=== PATIENT | female | born 1990 | race Caucasian/White ===

== ENCOUNTER 2019-03-16 12:29 | Emergency (ER) | payer SELFPAY ==
[2019-03-16 12:32] VITALS: BP 139/94; PULSE 76; RESP 16; O2SAT 100; BMI 38.9
--- NOTE | 2019-03-16 12:37 | W.ED.ABDPA2 ---
HPI - Abdominal Pain General: Chief Complaint: Urogenital-Female Stated Complaint: flank pain Time Seen by Provider: 03/16/19 12:33 Source: patient Mode of arrival: ambulatory Limitations: no limitations History of Present Illness: HPI narrative: Patient presents with bilateral flank pain for the last 2 to 3 days. Patient reports history of chronic kidney disease, hypothyroidism, and mental illness. Patient appears mildly unwell. Patient appears in moderate pain. Location: L flank and R flank Review of Systems General: Reports: 10 or more systems reviewed and unremarkable except in HPI and below : Reports: urinary frequency, urinary urgency and other (flank pain) PFSH ED PFSH: Statuses (acute, chronic, etc) shown below reflect problem list status as previously entered and may not be historically accurate Social History Smoking and tobacco status: former smoker Physical Exam Const: COMMON NORMALS: no apparent distress and oriented x3 GENERAL APPEARANCE: cooperative HENMT: COMMON NORMALS: normocephalic, external ears normal, EAC's normal, TM's normal bilaterally and external nose normal HEAD & SCALP: normal to inspection and normocephalic FACE & SINUS: normal facial exam NOSE: external nose normal GENERAL EAR: hearing not grossly impaired EXTERNAL EAR: Yes external ears normal EXTERNAL AUDITORY CANAL: EAC's normal TYMPANIC MEMBRANE: TM's normal bilaterally MOUTH: oral and palatal mucosa normal THROAT: posterior oropharynx normal Eye: COMMON NORMALS: PERRL and EOMs intact bilaterally PUPIL: Yes PERRL Neck/C-Spine: COMMON NORMALS: full ROM and no lymphadenopathy Lymph: LYMPHATIC: no lymphedema noted Chest: COMMONS NORMALS: inspection of chest normal and palpation of chest normal Resp: COMMON NORMALS: normal respiratory effort and clear to auscultation bilaterally AUSCULTATION: clear to auscultation bilaterally Cardio: COMMON NORMALS: regular rate and regular rhythm RATE: regular rate RHYTHM: regular rhythm GI: COMMON NORMALS: normal to inspection, nondistended, normoactive bowel sounds and non-tender : BLADDER/KIDNEY EXAM: Yes CVA tenderness bilateral (mild) Back/Pelvis: COMMON NORMALS: thoracic and lumbar spine normal to inspection GENERAL BACK: Yes CVA tenderness Extremity: COMMON NORMALS: normal to inspection GENERAL: No edema Neuro: COMMON NORMALS: oriented x3, moves all extremities and no focal motor deficits Psych: COMMON NORMALS: mental status grossly normal and cooperative Skin: COMMON NORMALS: no rashes or lesions noted GENERAL SKIN EXAM: no rashes or lesions noted Course Vital Signs: Vital signs: Vital Signs Temperature 98.0 F 03/16/19 13:24 Pulse Rate 76 03/16/19 15:14 Respiratory Rate 18 03/16/19 15:14 Blood Pressure 127/67 03/16/19 15:14 Pulse Oximetry 98 03/16/19 15:14 MDM - Abdominal Pain MDM Narrative: Medical decision making narrative: Patient comes in today for complaints of bilateral flank pain. On exam patient appears well. Patient appears in mild to moderate pain. Patient has tenderness of bilateral CVA of the back. No vertebral point tenderness. Respirations were even lungs were clear to auscultation. Abdomen was soft and nontender. Skin was warm and dry. Differential diagnosis includes renal calculi, renal colic, pyelonephritis, cystitis, bowel obstruction, constipation, appendicitis, muscle strain, intervertebral disc disease, facet arthropathy. Laboratory values were fairly normal to insignificant. CT of the abdomen and pelvis noted no renal calculi or appendicitis. Reviewed exam with patient recommended treatment for low back pain/lumbar strain. Reviewed exam and recommendations for treatment with exercise and mild muscle relaxant. Patient reported understanding agreed with plan and need for follow-up. Lab Data: Labs: Lab Results 03/16/19 03/16/19 03/16/19 Range/Units 12:49 12:49 12:49 WBC 7.6 (4.0-10.0) 10^3/ uL RBC 3.95 L (4.1-5.3) 10^6/u L Hgb 10.8 L (11.5-15.3) g/dL Hct 34.4 L (37.0-47.0) % MCV 87.1 (81-99) fL MCH 27.3 L (28.0-34.0) pg MCHC 31.4 (30.0-36.0) g/dL RDW 15.8 H (12.1-15.1) % Plt Count 315 (130-400) 10^3/c mm MPV 12.6 H (7.4-10.4) fL Neut % (Auto) 55.1 % Lymph % (Auto) 35.4 % [place] % (Auto) 4.9 % Eos % (Auto) 3.2 % Baso % (Auto) 1.1 % Neut # (Auto) 4.2 (1.8-7.7) 10^3/u L Lymph # (Auto) 2.7 (0.8-4.8) 10^3/u L [place] # (Auto) 0.4 (0.2-0.9) 10^3/u L Eos # (Auto) 0.2 (0.0-0.8) 10^3/u L Baso # (Auto) 0.1 (0.0-0.1) 10^3/u L Nucleated RBC % (a uto) 0 % Nucleated RBCs # 0.0 /100WBC Sodium 136 (136-145) mmol/L Potassium 4.0 (3.5-5.1) mmol/L Chloride 101 (98-107) mmol/L Carbon Dioxide 25 (22-29) mmol/L Anion Gap 14.0 (5-19) BUN 11 (6-20) mg/dL Creatinine 1.2 H (0.5-0.9) mg/dL GFR Calculation 53.5 L (90-130) mL/min Glucose 96 (74-109) mg/dL Calcium 10.1 H (8.6-10.0) mg/Dl Total Bilirubin 0.2 (0.15-1.2) mg/dL AST 18 (0-32) U/L ALT 11 (0-33) U/L Alkaline Phosphata se 73 (35-105) IU/L Total Protein 7.8 (6.6-8.7) g/dL Albumin 5.0 (3.5-5.2) g/dL Globulin 2.8 (1.3-4.6) g/dL HCG, Qual Negative (Negative) Urine Color (Yellow) Urine Appearance (CLEAR) Urine pH (5-7) Ur Specific Gravit y (1.005-1.030) Urine Protein (Negative) Urine Glucose (UA) (Normal) Urine Ketones (Negative) Urine Occult Blood (Negative) Urine Nitrate (Negative) Urine Bilirubin (NEGATIVE) Urine Urobilinogen (Negative) mg/dL Ur Leukocyte Blanca ase (Negative) Urine RBC (0-2) /hpf Urine WBC (0-5) /hpf Ur Squamous Epith Cells (0-5) Urine Bacteria (NONE) 03/16/19 Range/Units 12:55 WBC (4.0-10.0) 10^3/ uL RBC (4.1-5.3) 10^6/u L Hgb (11.5-15.3) g/dL Hct (37.0-47.0) % MCV (81-99) fL MCH (28.0-34.0) pg MCHC (30.0-36.0) g/dL RDW (12.1-15.1) % Plt Count (130-400) 10^3/c mm MPV (7.4-10.4) fL Neut % (Auto) % Lymph % (Auto) % [place] % (Auto) % Eos % (Auto) % Baso % (Auto) % Neut # (Auto) (1.8-7.7) 10^3/u L Lymph # (Auto) (0.8-4.8) 10^3/u L [place] # (Auto) (0.2-0.9) 10^3/u L Eos # (Auto) (0.0-0.8) 10^3/u L Baso # (Auto) (0.0-0.1) 10^3/u L Nucleated RBC % (a uto) % Nucleated RBCs # /100WBC Sodium (136-145) mmol/L Potassium (3.5-5.1) mmol/L Chloride (98-107) mmol/L Carbon Dioxide (22-29) mmol/L Anion Gap (5-19) BUN (6-20) mg/dL Creatinine (0.5-0.9) mg/dL GFR Calculation (90-130) mL/min Glucose (74-109) mg/dL Calcium (8.6-10.0) mg/Dl Total Bilirubin (0.15-1.2) mg/dL AST (0-32) U/L ALT (0-33) U/L Alkaline Phosphata se (35-105) IU/L Total Protein (6.6-8.7) g/dL Albumin (3.5-5.2) g/dL Globulin (1.3-4.6) g/dL HCG, Qual (Negative) Urine Color Straw (Yellow) Urine Appearance Clear (CLEAR) Urine pH 7.0 (5-7) Ur Specific Gravit y 1.005 (1.005-1.030) Urine Protein Neg (Negative) Urine Glucose (UA) Norm (Normal) Urine Ketones Negative (Negative) Urine Occult Blood Neg (Negative) Urine Nitrate Negative (Negative) Urine Bilirubin Neg (NEGATIVE) Urine Urobilinogen Norm (Negative) mg/dL Ur Leukocyte Blanca ase Negative (Negative) Urine RBC None (0-2) /hpf Urine WBC 0-4 H (0-5) /hpf Ur Squamous Epith Cells 0-4 H (0-5) Urine Bacteria Trace (NONE) Discharge Plan Discharge Patient Disposition: Home, Self-Care Clinical Impression: Back pain Qualifiers: Back pain location: low back pain Chronicity: acute Back pain laterality: bilateral Sciatica presence: without sciatica Qualified Code(s): M54.5 - Low back pain Condition: Stable Prescriptions: New tizanidine 4 mg tablet 4 mg PO Q6H PRN (Reason: back pain/spasm) Qty: 14 RF: 0 No Action Synthroid 200 mcg Tablet 200 mcg PO DAILY RF: 0 Ativan 2 mg Tablet 2 mg PO DAILY PRN (Reason: Anxiety) RF: 0 Discharge Orders: Discharge Order (Routine); Ordered 03/16/19 Ordered By: Hugo Hernandez Discharge Diet: Usual diet Discharge Activity: Increase activity as tolerated Activity Restrictions/Additional Instructions: Gentle stretching and range of motion exercise Drink plenty of water Use over the counter Tylenol for pain relief along with prescription medication Follow-up with primary care for persistent symptoms Return to ER for high fever or new concerns Stand Alone Forms: Work/School Release Discharge Date/Time: 03/16/19 15:15 Coding Level of Care Code ED Mitochondrial Disorders Counselor for Ana Wihtt Exam Problem Focused
[2019-03-16 13:03] LABS: Basophils # 0.1 10^3/uL (0.0-0.1); Basophils % 1.1 %; Eosinophils # 0.2 10^3/uL (0.0-0.8); Eosinophils % 3.2 %; Hematocrit 34.4 % (37.0-47.0); Hemoglobin 10.8 g/dL (11.5-15.3); Lymphocytes # 2.7 10^3/uL (0.8-4.8); Lymphocytes % 35.4 %; Mean Corpuscular HGB Conc 31.4 g/dL (30.0-36.0); Mean Corpuscular Hemoglobin 27.3 pg (28.0-34.0); Mean Corpuscular Volume 87.1 fL (81-99); Mean Platelet Volume 12.6 fL (7.4-10.4); Monocytes # 0.4 10^3/uL (0.2-0.9); Monocytes % 4.9 %; Neutrophils # 4.2 10^3/uL (1.8-7.7); Neutrophils % 55.1 %; Nucleated Red Blood Cells % 0 %; Platelet Count 315 10^3/cmm (130-400); Red Blood Count 3.95 10^6/uL (4.1-5.3); Red Cell Distribution Width 15.8 % (12.1-15.1); White Blood Count 7.6 10^3/uL (4.0-10.0)
[2019-03-16 13:14] LABS: HCG, Serum Qual Negative (Negative)
[2019-03-16 13:19] LABS: Alanine Aminotransferase 11 U/L (0-33); Alkaline Phosphatase 73 IU/L (35-105); Aspartate Amino Transferase 18 U/L (0-32); Blood Urea Nitrogen 11 mg/dL (6-20); Calcium 10.1 mg/Dl (8.6-10.0); Carbon Dioxide 25 mmol/L (22-29); Chloride 101 mmol/L (98-107); Globulin 2.8 g/dL (1.3-4.6); Glomerular Filtration Rate 53.5 mL/min (90-130); Glucose 96 mg/dL (74-109); Sodium 136 mmol/L (136-145); Total Bilirubin 0.2 mg/dL (0.15-1.2); Total Protein 7.8 g/dL (6.6-8.7)
[2019-03-16 13:24] VITALS: BP 134/91; PULSE 77; RESP 17; TEMP 36.7; O2SAT 99
[2019-03-16] MEDS: ondansetron 2 mg/ML SDV 2 mL 4 MG IVP (13:24)
[2019-03-16 13:25] VITALS: RESP 18; O2SAT 98
[2019-03-16] MEDS: fentaNYL 50 mcg/mL INJ 2mL 25 MCG IVP (13:25)
--- NOTE | 2019-03-16 13:35 | CT_ITS ---
WS: [id number] CT ABDOMEN PELVIS TECHNIQUE: Noncontrast CT of the abdomen and pelvis with coronal and sagittal reformatted images. CLINICAL INFORMATION: flank pain COMPARISON: 7 DLP: 1731.[address] scans at [facility] use at least one of these dose optimization techniques: automat ed exposure control; mA and/or kV adjustment per patient size (includes targeted exams where dose is matched to clinical indication); or iterative reconstruction. FINDINGS: Noncontrast liver is normal. Normal gallbladder. Normal spleen. Normal gastroesophageal junction. Bala g bases are well aerated. Adrenal glands are normal. Normal noncontrast pancreas. Tiny subcentimeter calyceal tip calculi. No obstructing renal parenchymal or ureteral calculi. Pelvic phleboliths. Normal caliber abdominal aorta. No periaortic lymphadenopathy. Prior ventral hernia repair. Normal ap pendix in the right lower quadrant. No evidence of acute appendicitis. Normal sigmoid colon. Normal Physiologic multifollicular ovaries bilaterally. No free fluid in the pe lvis. CT/CT kidney stone [id number] IMPRESSION: 1. No obstructing renal or ureteral calculi. No hydronephrosis. 2. Tiny bilateral nonobstructing calyceal tip calculi. 3. Normal appendix. 4. Multifollicular ovaries bilaterally. No free fluid in the pelvis. 5. Prior ventral abdominal wall hernia repair.
[2019-03-16 14:35] LABS: Bilirubin Urine Neg (NEGATIVE); Blood Urine Neg (Negative); Glucose Urine UA Norm (Normal); Ketones Urine Negative (Negative); Nitrate Urine Negative (Negative); Protein Urine Neg (Negative); Specific Gravity, Urine 1.005 (1.005-1.030); Urine Appearance Clear (CLEAR); Urine Color Straw (Yellow)
[2019-03-16 14:36] LABS: Leukocyte Esterase Urine Negative (Negative); Urobilinogen Urine Norm (Negative)
[2019-03-16 15:02] LABS: Add Urine Culture? No; Bacteria Urine TRACE; Squamous Epithelial Cell Urine 0-4 (0-5); WBC Urine 0-4 /hpf (0-5)
[2019-03-16 15:14] VITALS: BP 127/67; PULSE 76; RESP 18; O2SAT 98
--- NOTE | 2019-03-16 15:14 | PC.NURSE ---
IV has been removed 3:13
== END 2019-03-16 15:15 | disposition home or self-care (01) ==
PROVIDERS: Emergency Provider Nurse Practitioner Family
DX: M54.5 Low back pain (principal); Z87.891 Personal history of nicotine dependence
CPT/HCPCS: 36415; 74176; 80053; 81001; 84703; 85025; 96374; 96375; 99282; A9270; J2405; J3010

== ENCOUNTER → 2019-03-27 15:21 | Outpatient (BNVA) | payer SELFPAY | PROVIDERS: Visit Provider Nurse Practitioner Family | DX: J10.1 Influenza due to other identified influenza virus with other respiratory manifestations (principal); R09.89 Other specified symptoms and signs involving the circulatory and respiratory systems | CPT/HCPCS: 87081; 87804; 87880 ==

== ENCOUNTER 2019-05-01 22:55 | Emergency (ER) | payer SELFPAY ==
[2019-05-01 23:01] VITALS: BMI 39.8
--- NOTE | 2019-05-01 23:03 | XRR_ITS ---
PROCEDURE INFORMATION: Exam: XR Right Hand Exam date and time: 05/01/2019 11:29 PM Age: 28 years old Clinical indication: Pain and injury or trauma; Injury history: Punched a wall; Initial encounter; Blunt trauma (contusions or hematomas; Hand; Right; Injury date: 3 days ago TECHNIQUE: Imaging protocol: XR Right hand. Views: 3 or more views. COMPARISON: No relevant prior studies available. FINDINGS: Bones/joints: No fracture. No dislocation. Soft tissues: There is superficial soft tissue swelling dorsal to the metacarpal heads. This could be due to a contusion given history. XR/XR hand RT min 3V* [id number] IMPRESSION: Soft tissue injury without osseous injury.
[2019-05-01 23:04] VITALS: BP 134/101; PULSE 80; RESP 16; TEMP 36.7; O2SAT 96
[2019-05-01 23:12] VITALS: PULSE 18
--- NOTE | 2019-05-01 23:16 | ED_ITS ---
Entered by Demetria Brasher, acting as scribe for Richa Gamez Collette May 01, 2019 22:55 HPI - Extremity Problem General: Chief complaint: Extremity Injury, Upper Stated complaint: finger injury Time Seen by Provider: 05/01/19 23:10 Source: patient Mode of arrival: ambulatory Limitations: no limitations History of Present Illness: HPI Narrative: 28 yo f came to the er for ext injury. Onset was last night. Pt states that she punched a wall last night. MD Complaint: extremity pain Onset (ago): day(s) (last night) Review of Systems General: Reports: 10 or more systems reviewed and unremarkable except in HPI and below PFSH ED PFSH: Family History (Updated 03/27/19 @ 15:01 by Rosalva Pena LPN, RT) Father , 2003 JEFFREY (obstructive sleep apnea) Alcohol abuse drug abuse Mother Lung disease COPD Family/Other Stroke Cancer Hyperlipidemia Social History (Updated 03/27/19 @ 15:00 by Rosalva Pena LPN, RT) Smoking and tobacco status: never smoked Quit status (tobacco): has quit using tobacco Year quit tobacco: 2008 Former quit date comment: smoked 1/2 PPD since age 13 Second hand smoke exposure: Yes Alcohol intake: current Alcohol intake frequency: few times a month Adopted: No Lives independently: Yes Household members: significant other and children Housing: House Marital status: Life Partner Number of children: 2 service: No Current occupational status: employed Current occupation: [employer] Current occupational exposures/hazards: No History of recent travel: No Current gender identity: Female Female Reproductive History: Date of last menstrual period: 04/05/19 Physical Exam Extremity: NARRATIVE EXTREMITY EXAM: Right hand with bruise over fifth metacarpal phalangeal joint. Full range of motion. Small abrasion noted. No laceration present. Fifth phalanx with normal neuro sensation and capillary refill distal. Course Vital Signs: Vital signs: Vital Signs Temperature 98.4 F 05/01/19 23:54 Pulse Rate 96 05/01/19 23:54 Respiratory Rate 16 05/01/19 23:54 Blood Pressure 132/98 05/01/19 23:54 Pulse Oximetry 96 05/01/19 23:54 MDM - Extremity (Nontraumatic) MDM Narrative: Medical decision making narrative: Patient comes in after punching a wall and bruising her right hand at the fifth metacarpal phalangeal joint. I see no evidence of fracture dislocation on x-ray. I will go and discharge the patient home to follow-up with orthopedics as needed. Imaging Data^: Other Imaging: My impression: Right hand -no acute fractures or dislocations. Discharge Plan Discharge Patient Disposition: Home, Self-Care Clinical Impression: Contusion Qualifiers: Encounter type: initial encounter Contusion area: hand Laterality: right Qualified Code(s): S60.221A - Contusion of right hand, initial encounter Condition: Stable Prescriptions: No Action prednisone 20 mg tablet 40 mg PO QDAY Qty: 10 RF: 0 promethazine-DM 6.25-15 mg/5 mL syrup 5 ml PO ONCE PRN (Reason: cough) Qty: 150 RF: 0 oseltamivir [Tamiflu] 75 mg capsule 75 mg PO BID Qty: 10 RF: 0 Synthroid 200 mcg Tablet 200 mcg PO DAILY RF: 0 Ativan 2 mg Tablet 2 mg PO DAILY PRN (Reason: Anxiety) RF: 0 tizanidine 4 mg tablet 4 mg PO Q6H PRN (Reason: back pain/spasm) Qty: 14 RF: 0 Discharge Orders: Discharge Order (Routine); Ordered 05/01/19 Ordered By: Richa Gamez Discharge Diet: Advance as tolerated and Usual diet Discharge Activity: Increase activity as tolerated Patient Instructions: Contusion in Adults (ED) Activity Restrictions/Additional Instructions: Please return to the ER immediately for any of the signs or symptoms listed on your discharge instruction sheets, worsening/changing of your symptoms, you are not getting better as quickly as expected, or for ANY other cause or concerns. Discharge Date/Time: 05/01/19 23:56 Coding Level of Care Code ED Oven Laborer for Chg Fwd The documentation recorded by the Anshu jay Stephanie Lyn, accurately reflects the service I personally performed and the decisions made by , Richa Gamez May 01, 2019 22:55
[2019-05-01 23:54] VITALS: BP 132/98; PULSE 96; RESP 16; TEMP 36.9; O2SAT 96
== END 2019-05-01 23:56 | disposition home or self-care (01) ==
PROVIDERS: Emergency Provider Emergency Medicine
DX: S60.221A Contusion of right hand, initial encounter (principal); Z87.891 Personal history of nicotine dependence
CPT/HCPCS: 73130; 99281; 99282

== ENCOUNTER → 2019-08-08 14:04 | Outpatient (BNVA) | payer SELFPAY | PROVIDERS: Visit Provider Nurse Practitioner Family | DX: E03.9 Hypothyroidism, unspecified (principal) | CPT/HCPCS: 80053; 84439; 84443; 84481; 85025 ==

== ENCOUNTER → 2020-01-01 11:13 | Outpatient (BNVA) | payer SELFPAY | PROVIDERS: Visit Provider Nurse Practitioner Family | DX: E03.1 Congenital hypothyroidism without goiter (principal) | CPT/HCPCS: 80053; 84439; 84443; 84481; 85025 ==

== ENCOUNTER → 2020-03-12 10:36 | Outpatient (BNVA) | payer MEDICAID, SELFPAY | PROVIDERS: Visit Provider Nurse Practitioner Family | DX: E03.1 Congenital hypothyroidism without goiter (principal) | CPT/HCPCS: 80048; 84439; 84443; 84481 ==

== ENCOUNTER → 2020-04-29 17:20 | Outpatient (BNVA) | payer MEDICAID, SELFPAY | PROVIDERS: Visit Provider Nurse Practitioner Family | DX: E03.1 Congenital hypothyroidism without goiter (principal); K64.9 Unspecified hemorrhoids; H66.001 Acute suppurative otitis media without spontaneous rupture of ear drum, right ear | CPT/HCPCS: 80048; 84439; 84443; 84481; 85025 ==

== ENCOUNTER → 2020-06-06 00:01 | Outpatient (BNVA) | payer MEDICAID, SELFPAY | PROVIDERS: Visit Provider Surgery | DX: Z20.822 Contact with and (suspected) exposure to COVID-19 (principal) | CPT/HCPCS: 87635 ==

== ENCOUNTER 2020-06-08 21:00 | Emergency (ER) | payer MEDICAID, SELFPAY ==
[2020-06-08 21:05] VITALS: BP 126/91; PULSE 98; RESP 18; TEMP 36.5; O2SAT 98; BMI 39.4
[2020-06-08] MEDS: sodium chloride 0.9% 1,000 ML 999 ML IV (22:07)
--- NOTE | 2020-06-08 22:08 | CTR_ITS ---
PROCEDURE INFORMATION: Exam: CT Abdomen And Pelvis With Contrast Exam date and time: 06/08/2020 10:38 PM Age: 29 years old Clinical indication: Abdominal pain; Localized; Left lower quadrant (llq); Prior surgery; Surgery date: 6+ months; Surgery type: Hernia, c-sect; Patient HX: C/O llq abd pain w n/v; Additional info: Llq pain TECHNIQUE: Imaging protocol: Computed tomography of the abdomen and pelvis with contrast. Radiation optimization: All CT scans at this facility use at least one of these dose optimization techniques: automated exposure control; mA and/or kV adjustment per patient size (includes targeted exams where dose is matched to clinical indication); or iterative reconstruction. Contrast material: OMNI 300; Contrast volume: 95 ml; Contrast route: INTRAVENOUS (IV); COMPARISON: CT abdomen pelvis w con* [id number] 09/05/2016 4:37 AM RADIATION DOSE METRICS: Total DLP (mGy-cm): 1786.72 FINDINGS: Lungs: The lung bases are clear. Mediastinal space: There may be some mucosal/wall thickening involving the lower esophagus. This is nonspecific, but could represent evidence for esophagitis. Please correlate clinically. Liver: There is a very small 5 mm low attenuation area in the lateral right lobe of the liver. The appearance is nonspecific, but statistically this most likely represents a small cyst or cavernous hemangioma. Gallbladder and bile ducts: No definite gallbladder abnormality by CT. No biliary tree dilation. Pancreas: Unremarkable. Spleen: Unremarkable. Adrenal glands: Unremarkable. Kidneys and ureters: There are few small intrarenal calculi bilaterally. No hydronephrosis of either kidney. No visible ureteral calculus. No perinephric fluid. Probable 4-5 mm cyst in each kidney kidney, too small to accurately characterize by CT. The kidneys otherwise enhance homogeneously. Stomach and bowel: There are no CT findings to strongly suggest diverticulitis or colitis. Appendix: The appendix is visualized and appears normal. Intraperitoneal space: No free air, generalized ascites, or bowel distention. Vasculature: No evidence for abdominal aortic aneurysm. Lymph nodes: No retroperitoneal adenopathy. Urinary bladder: Possibly some mild diffuse urinary bladder wall thickening. While nonspecific, this could indicate evidence for cystitis. Please correlate clinically. Reproductive: Very small amount of cul-de-sac fluid. No definite abnormal ovarian/adnexal cyst or mass by CT. Bones/joints: No significant acute finding. Soft tissues: No significant acute finding. CT/CT abdomen pelvis w con* [id number] IMPRESSION: 1. No CT findings to strongly suggest diverticulitis or colitis. 2. No free air or bowel distention. No evidence for bowel obstruction. 3. Bilateral intrarenal calculi. No hydronephrosis of either kidney. No visible ureteral calculus. 4. Possible mild urinary bladder wall thickening, see above. 5. Normal appendix. 6. Very small amount of cul-de-sac fluid. No definite abnormal ovarian/adnexal cyst or mass by CT. 7. Possibly some thickening of the lower esophagus, see above discussion. 8. Other findings discussed above. Radiation Dose CTDIVOL = (mGy): DLP = 1786.72 (mGy-cm)
[2020-06-08 22:14] LABS: Basophils # 0.1 10^3/uL (0.0-0.1); Basophils % 0.4 %; Eosinophils # 0.2 10^3/uL (0.0-0.8); Eosinophils % 1.9 %; Hematocrit 37.5 % (37.0-47.0); Hemoglobin 11.7 g/dL (11.5-15.3); Lymphocytes # 0.5 10^3/uL (0.8-4.8); Lymphocytes % 4.5 %; Mean Corpuscular HGB Conc 31.2 g/dL (30.0-36.0); Mean Corpuscular Hemoglobin 26.7 pg (28.0-34.0); Mean Corpuscular Volume 85.6 fL (81-99); Mean Platelet Volume 12.3 fL (7.4-10.4); Monocytes # 0.5 10^3/uL (0.2-0.9); Monocytes % 4.3 %; Neutrophils # 10.16 10^3/uL (1.8-7.7); Neutrophils % 88.6 %; Nucleated Red Blood Cells % 0 %; Platelet Count 321 10^3/cmm (130-400); Red Blood Count 4.38 10^6/uL (4.1-5.3); Red Cell Distribution Width 14.6 % (12.1-15.1); White Blood Count 11.5 10^3/uL (4.0-10.0)
--- NOTE | 2020-06-08 22:15 | W.ED.ABDPA2 ---
HPI - Abdominal Pain General: Chief Complaint: Abdominal Pain Stated Complaint: ABD PAIN Time Seen by Provider: 06/08/20 21:11 History of Present Illness: HPI narrative: 29-year-old female who tells me she has had 3 different surgeries for ventral hernia presents with abdominal pain and vomiting. She says it started around noon today. She is vomited 6 times or so. Pain is gotten worse, localizes a bit more to the left lower quadrant but also in the mid abdomen. No radiation. No fever, no diarrhea, no blood in the stool. MD elicited complaint: abdominal pain Pertinent past history: other Onset (ago): hour(s) Pain Consistency: constant Location: Periumbilical and LLQ Severity: moderate Quality: stabbing and aching Radiation: none Migration to: no migration Exacerbating factors: vomiting and movement Relieving factors: nothing Associated Symptoms: Reports chills and vomiting; Denies diarrhea, dyspepsia, fever(s), hematuria, hematemesis and loose stools Related Data: Date of Last Menstrual Period: 12/05/19 Review of Systems Const: Reports: chills; Denies: fever(s) ENMT: Denies: odynophagia or sinus pain Card: Denies: chest pain, palpitations or irregular heart rhythm Resp: Denies: dyspnea, productive cough, non-productive cough or wheezing GI: Reports: vomiting; Denies: hematemesis or diarrhea : Denies: hematuria Musc: Reports: back pain; Denies: neck pain Skin/Breast: Denies: rash or erythema Neuro: Denies: headache(s), dizziness or vertigo Psych: Denies: anxiety PFSH ED PFSH: Medical History (Updated 06/09/20 @ 00:54 by Tommy Lovelace DO) Anemia, unspecified Chronic kidney disease, stage 3 (moderate) Congenital hypothyroidism Essential (primary) hypertension Generalized anxiety disorder Major depressive disorder, recurrent episode, moderate with anxious distress Panic disorder without agoraphobia Polycystic ovarian syndrome Vitamin D deficiency Surgical History Hx of section (~2012) Hx of hernia repair x 3 Hx of tubal ligation (~2012) Family History Father , 2003 JEFFREY (obstructive sleep apnea) Alcohol abuse drug abuse Mother Lung disease COPD Family/Other Stroke Cancer Hyperlipidemia Social History Smoking and tobacco status: never smoked Quit status (tobacco): has quit using tobacco Year quit tobacco: 2008 Former quit date comment: smoked 1/2 PPD since age 13 Second hand smoke exposure: Yes Alcohol intake: current Alcohol intake frequency: few times a month Adopted: No Lives independently: Yes Household members: significant other and children Housing: House Marital status: Life Partner Number of children: 2 service: No Current occupational status: employed Current occupation: [employer] Current occupational exposures/hazards: No History of recent travel: No Current gender identity: Female Female Reproductive History: Date of last menstrual period: 12/05/19 Physical Exam Const: GENERAL APPEARANCE: well developed ORIENTATION/CONSCIOUSNESS: Yes oriented to person, Yes oriented to place and Yes oriented to time HENMT: COMMON NORMALS: normocephalic, external ears normal and Normal external nose present HEAD & SCALP: normocephalic FACE & SINUS: normal facial exam NOSE: Normal external nose present and No nasal discharge present EXTERNAL EAR: Yes external ears normal Eye: COMMON NORMALS: Equal, round and reactive pupils present, EOMs intact bilaterally and conjunctivae normal EYELID: eyelids normal CONJUNCTIVA: Yes conjunctivae normal PUPIL: Yes Equal, round and reactive pupils present Neck/C-Spine: GENERAL: No tracheal deviation Chest: COMMONS NORMALS: normal inspection of the chest CHEST: No tenderness Resp: COMMON NORMALS: clear to auscultation bilaterally EFFORT & INSPECTION: No tachypneic, No respiratory distress, No retractions, No uses accessory muscles and No tracheal deviation AUSCULTATION: clear to auscultation bilaterally, no rhonchi, no wheezes and lung sounds not diminished Cardio: COMMON NORMALS: regular rate and regular rhythm RATE: regular rate RHYTHM: regular rhythm HEART SOUNDS: no murmurs PERIPHERAL PULSES: radial pulses present GI: INSPECTION: No abdominal distension AUSCULTATION: No Hyperactive bowel sounds present and No Hypoactive bowel sounds present PALPATION: Yes Tenderness to palpation present (GI) Details: LLQ, Yes Guarding due to palpation present (GI) and No Rigid due to palpation PERCUSSION: no dullness to percussion and no tympanic to percussion Neuro: SENSORIUM/ORIENTATION: Yes oriented to person, Yes oriented to place and Yes oriented to time Psych: COMMON NORMALS: mental status grossly normal Skin: COMMON NORMALS: no rashes or lesions noted GENERAL SKIN EXAM: no rashes or lesions noted Course Vital Signs: Vital signs: Vital Signs Temperature 97.7 F 06/08/20 21:05 Pulse Rate 98 06/08/20 21:05 Respiratory Rate 18 06/08/20 21:05 Blood Pressure 126/91 06/08/20 21:05 Pulse Oximetry 98 06/08/20 21:05 MDM - Abdominal Pain MDM Narrative: Medical decision making narrative: White blood cell count is minimally elevated. Other laboratory is normal. She has urinated twice in the emergency room, and failed to obtain a sample both times despite counseling that we need her urinalysis for complete work-up. Her CT shows no evidence of problem with her hernia mesh. There is some mild lower esophagitis, and it is otherwise negative. She will be sent home on proton pump inhibitor for esophagitis. Lab Data: Labs: Lab Results 06/08/20 06/08/20 06/08/20 Range/Units 21:59 21:59 21:59 WBC 11.5 H (4.0-10.0) 10^3/ uL RBC 4.38 (4.1-5.3) 10^6/u L Hgb 11.7 (11.5-15.3) g/dL Hct 37.5 (37.0-47.0) % MCV 85.6 (81-99) fL MCH 26.7 L (28.0-34.0) pg MCHC 31.2 (30.0-36.0) g/dL RDW 14.6 (12.1-15.1) % Plt Count 321 (130-400) 10^3/c mm MPV 12.3 H (7.4-10.4) fL Neut % (Auto) 88.6 % Lymph % (Auto) 4.5 % [place] % (Auto) 4.3 % Eos % (Auto) 1.9 % Baso % (Auto) 0.4 % Neut # (Auto) 10.16 H (1.8-7.7) 10^3/u L Lymph # (Auto) 0.5 L (0.8-4.8) 10^3/u L [place] # (Auto) 0.5 (0.2-0.9) 10^3/u L Eos # (Auto) 0.2 (0.0-0.8) 10^3/u L Baso # (Auto) 0.1 (0.0-0.1) 10^3/u L Nucleated RBC % (a uto) 0 % Nucleated RBCs # 0.0 /100WBC Sodium 141 (136-145) mmol/L Potassium 4.2 (3.5-5.1) mmol/L Chloride 108 H (98-107) mmol/L Carbon Dioxide 23 (22-29) mmol/L Anion Gap 14.2 (5-19) BUN 13 (6-20) mg/dL Creatinine 0.8 (0.5-0.9) mg/dL GFR Calculation 84.8 L (90-130) mL/min Glucose 103 (65-115) mg/dL Calculated Osmolal ity 292 (285-295) mOsm/k g Calcium 9.0 (8.5-10.5) mg/dL Total Bilirubin 0.3 (0.15-1.2) mg/dL AST 13 (0-32) U/L ALT 7 (0-33) U/L Alkaline Phosphata se 79 (35-105) IU/L C-Reactive Protein 9.1 H (0.0-4.9) mg/L Total Protein 7.3 (6.6-8.7) g/dL Albumin 4.5 (3.5-5.2) g/dL Globulin 2.8 (1.3-4.6) g/dL Lipase 17 (13-60) U/L HCG, Qual Negative (Negative) Discharge Plan Discharge Patient Disposition: Home Clinical Impression: Esophagitis Condition: Stable Prescriptions: New Prevacid 30 mg capsule,delayed release(DR/EC) 30 mg PO DAILY Qty: 30 RF: 0 Zofran 4 mg tablet 4 mg PO Q6H PRN (Reason: nausea and vomiting) Qty: 10 RF: 0 No Action hydrocortisone acetate [Anusol-HC] 25 mg suppository 25 mg CO BID Qty: 12 RF: 0 polyethylene glycol 3350 [Miralax] 17 gram/dose powder 17 g PO DAILY PRN (Reason: constipation) Qty: 238 RF: 0 quetiapine [Seroquel] 100 mg tablet 100 mg PO .bedtime Qty: 30 RF: 3 buspirone 10 mg tablet 10 mg PO DIRECTED Qty: 60 RF: 3 levothyroxine [Synthroid] 100 mcg tablet 100 mcg PO DAILY Qty: 30 RF: 1 Discharge Orders: Discharge ED (Routine); Ordered 06/09/20 Ordered By: Tommy Lovelace Referrals: Rosalva Mckeon FNP [Primary Care Provider] - 4-7 days Patient Instructions: Gastroesophageal Reflux Disease (ED) Activity Restrictions/Additional Instructions: Return for fever greater than 100, vomiting liquids or medications, other concerning symptoms. Coding Level of Care Code ED Telephone Service Representative for Chg Fwd Exam Comprehensive
[2020-06-08 22:24] LABS: HCG, Serum Qual Negative (Negative)
[2020-06-08 22:32] LABS: Alanine Aminotransferase 7 U/L (0-33); Albumin Level 4.5 g/dL (3.5-5.2); Alkaline Phosphatase 79 IU/L (35-105); Anion Gap 14.2 (5-19); Aspartate Amino Transferase 13 U/L (0-32); Blood Urea Nitrogen 13 mg/dL (6-20); C Reactive Protein 9.1 mg/L (0.0-4.9); Carbon Dioxide 23 mmol/L (22-29); Chloride 108 mmol/L (98-107); Globulin 2.8 g/dL (1.3-4.6); Glomerular Filtration Rate 84.8 mL/min (90-130); Glucose 103 mg/dL (65-115); Lipase 17 U/L (13-60); Osmolality Calculated 292 mOsm/kg (285-295); Potassium 4.2 mmol/L (3.5-5.1); Sodium 141 mmol/L (136-145); Total Bilirubin 0.3 mg/dL (0.15-1.2); Total Protein 7.3 g/dL (6.6-8.7)
[2020-06-08] MEDS: ketorolac 30 mg/mL INJ IVP (22:37)
[2020-06-08] MEDS: ondansetron 2 mg/ML SDV 2 mL 4 MG IVP (22:38)
[2020-06-08] MEDS: iohexol 300 mg/mL 100 mL Btl IV (22:47)
[2020-06-09] MEDS: lidocaine 2% viscous 15 ML, aluminum-mag hydrox-simethicon 30 ML, sucralfate oral liq 1 GM PO (00:36)
== END 2020-06-09 01:12 | disposition home or self-care (01) ==
PROVIDERS: Emergency Provider Emergency Medicine; PCP Nurse Practitioner Family
DX: K20.90 Esophagitis, unspecified without bleeding (principal); I12.9 Hypertensive chronic kidney disease with stage 1 through stage 4 chronic kidney disease, or unspecified chronic kidney disease; N18.30 Chronic kidney disease, stage 3 unspecified; Z87.891 Personal history of nicotine dependence
CPT/HCPCS: 74177; 80053; 83690; 84703; 85025; 86140; 96361; 96374; 96375; 99284; J1885; J2405; J7030; Q9967

== ENCOUNTER 2020-06-10 05:45 | Day surgery (SDC) | payer MEDICAID, SELFPAY ==
[2020-06-09 09:23] VITALS: BMI 38.9
[2020-06-10] VITALS (8 sets, daily range): BP systolic 114–135; BP diastolic 80–95; PULSE 68–87; RESP 13–20; TEMP 36.2–36.9; O2SAT 95–100
[2020-06-10 06:09] LABS: OR HCG Qualitative Urine Negative (Negative)
--- NOTE | 2020-06-10 06:23 | P.HP_ITS ---
Same Day Surgery H&P Indication for Procedure/HPI DATE OF PROCEDURE: June 10, 2020 CHIEF COMPLAINT/INDICATIONFOR SURGICAL PROCEDURE: BLEEDING PER RECTUM PREOP DIAGNOSIS: Bleeding per rectum PLANNED PROCEDRUE: Operation Date: 06/10/20 07:00 Proposed Procedures p Exam Under Anesthesia 94520 [id number] K64.9(Not Applicable) - Santana Castellanos MD s OPEN LATERAL SPHINCTERECTOMY(Not Applicable) - MD itzel Moss Hemorroidectomy(Not Applicable) - Santana Castellanos MD This is a pleasant 29 years old female patient morbidly obese with a current BMI of 44 and weighs 239 pounds, referred to my practice with history of symptomatic hemorrhoids per her description over the past few months she has been having spotting and intermittent blood with stools associated with pain and constipation. Patient denies previous anal or perianal surgeries. Interim history 06/10/2020 Patient comes today for examination under anesthesia and possible hemorrhoidectomy with possible open lateral internal sphincterotomy. Recently went to the emergency department; 1.No CT findings to strongly suggest diverticulitis or colitis. 2. No free air or bowel distention. No evidence for bowel obstruction. 3. Bilateral intrarenal calculi. No hydronephrosis of either kidney. No visible ureteral calculus. 4. Possible mild urinary bladder wall thickening, see above. 5. Normal appendix. 6. Very small amount of cul-de-sac fluid. No definite abnormal ovarian/adnexal cyst or mass by CT. 7. Possibly some thickening of the lower esophagus, see above discussion. 8. Other findings discussed above. ROS All systems have been reviewed negative except as per the above or per problem list Medications/Allergies* Allergies/Adverse Reactions Allergy/AdvReac Type Severity Reaction Status Date / Time acetaminophen Allergy ALGY-Hives Verified 06/10/20 06:26 [From Darvocet-N 100] ibuprofen Allergy Unknown Verified 06/10/20 06:26 propoxyphene Allergy ALGY-Hives Verified 06/10/20 06:26 [From Darvocet-N 100] Pertinent History/Comorbid Conditions* Medical History (Updated 06/09/20 @ 00:54 by Tommy Lovelace DO) Anemia, unspecified Chronic kidney disease, stage 3 (moderate) Congenital hypothyroidism Essential (primary) hypertension Generalized anxiety disorder Major depressive disorder, recurrent episode, moderate with anxious distress Panic disorder without agoraphobia Polycystic ovarian syndrome Vitamin D deficiency Surgical History (Updated 01/01/20 @ 13:56 by OLMAN Buckner) Hx of section (~2012) Hx of hernia repair x 3 Hx of tubal ligation (~2012) Family History (Updated 03/27/19 @ 15:01 by Rosalva Pena LPN, RT) Father, 2003 JEFFREY (obstructive sleep apnea) Father Alcohol abuse Father drug abuse Hyperlipidemia Family/Other Lung disease Mother COPD Cancer Family/Other Stroke Family/Other Social History Smoking and tobacco status: never smoked Quit status (tobacco): has quit using tobacco Year quit tobacco: 2008 Former quit date comment: smoked 1/2 PPD since age 13 Second hand smoke exposure: Yes Alcohol intake: current Alcohol intake frequency: few times a month Adopted: No Lives independently: Yes Household members: significant other and children Housing: House Marital status: Life Partner Number of children: 2 service: No Current occupational status: employed Current occupation: [employer] Current occupational exposures/hazards: No History of recent travel: No Current gender identity: Female Pertinent Exam Findings alert, oriented x 3, clear to auscultation bilaterally, regular rate & rhythm and procedure specific exam findings (Abdominal examination nontender nondistended soft obese) Recommendations Surgery/Procedure today (Examination under anesthesia with possible hemorrhoidectomy and possible open lateral sphincterotomy) Coding Level of Care Code Acute Supervisor [employer] for Ana Whitt
--- NOTE | 2020-06-10 06:31 | ANES.PREANE2 ---
Pre-Anesthetic Assessment Pre-Anesthetic Assessment: Height/Weight: Height 1.6 m Weight 99.79 kg Temp Pulse Resp BP Pulse Ox 97.2 F L 84 18 118/83 96 06/10/20 06:00 06/10/20 06:00 06/10/20 06:00 06/10/20 06:00 06/10/20 06:00 Preop Diagnosis: Bleeding per rectum Proposed Procedure: Operation Date: 06/10/20 07:00 Proposed Procedures p Exam Under Anesthesia 89499 [id number] K64.9(Not Applicable) - Santana Castellanos MD s OPEN LATERAL SPHINCTERECTOMY(Not Applicable) - Santana Castellanos MD s Hemorroidectomy(Not Applicable) - Santana Castellanos MD Familial anesthetic complications: None Was Beta Dawn taken within 24 hours: N/A Was Clonidine taken within 24 hours: N/A Last intake: Intake Last Liquid Date 06/09/20 Last Liquid Time 21:00 Last Solid Date 06/09/20 Last Solid Time 21:00 Social: Social History: Tobacco and No alcohol Comment: Marijuana - last week Exam: Pre-Anes Outpt Exam: alert, oriented x 3, clear to auscultation bilaterally and regular rate & rhythm Airway: Cervical ROM: WNL MP: 3 Dentition: Other (missing) Additional comments: Patient has nose ring, educated on risks associated w/ bovie use and jurado, states she's unable to remove it and would like top proceed Pulmonary: Pulmonary: Sleep apnea CV/HEM: Comments: hx preeclampsia : : Chronic renal Insufficiency (d/t HTN from preeclampsia) Metabolic: Metabolic: Morbid obesity and Thyroid Anesthetic Plan: ASA status: 2 Anesthesia: General Risk of > 500 ml blood loss (7ml/kg in children): No PFSH Anesthesia PFSH: Medical History (Updated 06/09/20 @ 00:54 by Tommy Lovelace DO) Anemia, unspecified Chronic kidney disease, stage 3 (moderate) Congenital hypothyroidism Essential (primary) hypertension Generalized anxiety disorder Major depressive disorder, recurrent episode, moderate with anxious distress Panic disorder without agoraphobia Polycystic ovarian syndrome Vitamin D deficiency Surgical History Hx of section (~2012) Hx of hernia repair x 3 Hx of tubal ligation (~2012) Family History Father , 2003 JEFFREY (obstructive sleep apnea) Alcohol abuse drug abuse Mother Lung disease COPD Family/Other Stroke Cancer Hyperlipidemia Social History Smoking and tobacco status: never smoked Quit status (tobacco): has quit using tobacco Year quit tobacco: 2008 Former quit date comment: smoked 1/2 PPD since age 13 Second hand smoke exposure: Yes Alcohol intake: current Alcohol intake frequency: few times a month Adopted: No Lives independently: Yes Household members: significant other and children Housing: House Marital status: Life Partner Number of children: 2 service: No Current occupational status: employed Current occupation: [employer] Current occupational exposures/hazards: No History of recent travel: No Current gender identity: Female Female Reproductive History: Date of last menstrual period: 11/09/19 Data Anesthesia Other Labs: Laboratory Results - last 48 hr 06/10/20 06:06 Urine HCG, Qual Negative Cardiac Studies: No Data to Display
[2020-06-10] MEDS: famotidine 20 mg/2 mL INJ IVP (06:34)
[2020-06-10] MEDS: sodium chloride 0.9% 1,000 ML 30 ML IV (06:43)
[2020-06-10] MEDS: piperacillin-tazobactam 3.375 GM in sodium chloride 0.9% (plus) 50 ML IV (06:57)
--- NOTE | 2020-06-10 07:47 | PM.OP ---
Operative Report Date of procedure: June 10, 2020 Pre-op Diagnosis: Bleeding per rectum Post-op diagnosis: same Post-op Diagnosis: Right lower lateral hemorrhoids Post-op Findings: Posterior anal skin tag Procedure Done: Examination under anesthesia and right lower lateral hemorrhoidectomy Implants: Surgicel with Xeroform for anal packing Specimens removed/disposition: Right lower lateral hemorrhoid Surgeon: Santana Castellanos School Bus Monitor: director of instructional technology David Circulating nurse Tina Anesthesia: General (GETA legal transcriber Saima) Estimated blood loss (mL): 5 Condition: stable Disposition: same day Brief History: This is a pleasant 29 years old female patient presented with history of intermittent bleeding per rectum With concern of hemorrhoidal disease. Full H&P and informed consent per chart Procedure: Patient was identified in the holding area and was taken back to the operating room, which was first placed in supine position got intubated by anesthesia, prophylactic IV antibiotics were given per protocol,Time-out was done verifying the patient's name/date of /planned procedure and destination after the procedure, all were in agreement. Patient was placed in Lithotomy position were all pressure points were padded, patient was secured to the bed. Prep and drape was done thereafter under the usual sterile technique,started by pudendal nerve block bilaterally , injecting 15 ML EXPAREL each side , guided by the examining finger towards the ischial spine bilaterally, followed by that digital rectal examination showed no masses were appreciated or bleeding presence of posterior anal skin tag. A well-lubricated endoscope was then introduced I was able to identify A right lower lateral hemorrhoid, I placed a wet 4 x 4 inside the anal canal to prevent stools from encroaching on the wound site, that was taken out at the end of the procedure. I did apply a hemostat at the origin of the hemorrhoidal tissue, onto the right lower lateral hemorrhoid,using hand-held harmonic scalpel device for dissection safeguarding the external anal sphincter after that I was able to deliver the specimen to the circulating nurse hemostasis was achieved , and running 2-0 chromic catgut suture was applied to approximate the edges of the hemorrhoidectomy site, that was done after thorough irrigation of the wound with warm normal saline.Additional [id number] 3-0 chromic catgut was done for hemostasis. At that point after removal of the 4 x 4'sx1, I applied a piece of Xeroform impregnated IN lidocaine 2% jelly at the site of the wound and a piece of Surgicel both were rolled up as a Cigar like and and 2-0 silk stitch was applied at the end that faces the exit of the anus as it will be easier to pull out later on, followed by 4 x 4 application and ABD,a surgical pants was then placed to hold the dressing in place. Count was completed at the end of the procedure, patient was then extubated and was taken to the recovery room in stable condition I was present for the whole entire procedure.
[2020-06-10] MEDS: oxyCODONE 5 mg IR Tab/Cap PO (08:59)
--- NOTE | 2020-06-10 09:22 | SUR.PHASEII ---
patient discharge instruction given to patient verbally and written given. Provided sitz bath and instructed how to use. Patient verbalized understanding and had no question.
--- NOTE | 2020-06-10 12:23 | ANE.PACU2 ---
Inpatient post-anesthesia follow up: Airway intact: Yes Vital signs: Temperature 98.5 F Pulse Rate 76 Respiratory Rate 20 Blood Pressure 114/87 Pulse Oximetry 97 Oxygen Delivery Me thod Room Air Oxygen Flow Rate 8 Fraction of Inspir ed Oxygen Hydration adequate: Yes Nausea and vomiting: No Pain level: 2 Mental status: Baseline
== END 2020-06-10 09:24 | disposition home or self-care (01) ==
PROVIDERS: PCP Nurse Practitioner Family; Visit Provider Surgery
PROC: (CPT 46255; principal; 2020-06-10 07:00)
PROC: (CPT 46255; 2020-06-10 07:00)
DX: K62.5 Hemorrhage of anus and rectum (principal); K64.4 Residual hemorrhoidal skin tags; G47.30 Sleep apnea, unspecified; I12.9 Hypertensive chronic kidney disease with stage 1 through stage 4 chronic kidney disease, or unspecified chronic kidney disease; N18.30 Chronic kidney disease, stage 3 unspecified; E66.01 Morbid (severe) obesity due to excess calories; Z68.39 Body mass index [BMI] 39.0-39.9, adult; E03.9 Hypothyroidism, unspecified
CPT/HCPCS: 46255; 81025; 84703; 88304; 96365; C9290; J1100; J2250; J2405; J2543; J2704; J2710; J3010; J3490; J7030

== ENCOUNTER → 2020-06-13 10:32 | Outpatient (BNVA) | payer MEDICAID, SELFPAY | PROVIDERS: PCP Nurse Practitioner Family; Visit Provider Internal Medicine Nephrology | DX: N18.30 Chronic kidney disease, stage 3 unspecified (principal) | CPT/HCPCS: 80069; 82043; 82306; 82310; 83970; 85025 ==

== ENCOUNTER → 2020-06-25 13:54 | Outpatient (BNVA) | payer MEDICAID, SELFPAY | PROVIDERS: PCP Nurse Practitioner Family; Referring Provider Nurse Practitioner Family; Visit Provider Specialist | DX: G56.03 Carpal tunnel syndrome, bilateral upper limbs (principal) | CPT/HCPCS: 73110 ==

== ENCOUNTER 2020-07-16 14:10 | Emergency (ER) | payer MEDICAID, SELFPAY ==
[2020-07-16 14:12] VITALS: BP 133/87; PULSE 75; RESP 17; TEMP 36.8; O2SAT 100; BMI 38.9
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
--- NOTE | 2020-07-16 16:26 | USR_ITS ---
PROCEDURE INFORMATION: Exam: US Pelvis, Transvaginal Exam date and time: 07/16/2020 4:34 PM Age: 30 years old Clinical indication: Other: Excessive bleeding TECHNIQUE: Imaging protocol: Real-time transvaginal pelvic ultrasound with image documentation. Transvaginal imaging was used for better evaluation of the endometrium, adnexa, and/or cervix. Total images: 78 COMPARISON: US pelvic with transvaginal 08/26/2016 9:08 AM FINDINGS: Uterus/cervix: Small nabothian cysts. Anteverted nongravid multiparous appearing uterus dimensions 9.8 cm x 5.1 cm x 5.7 cm. Endometrial stripe measures 8 mm. Normal transition zone. No endometrial fluid. Homogeneous echotexture to the endometrium. Right adnexa: Right ovary appears sonographically unremarkable. Right ovarian dimensions 3 cm x 1.9 cm x 2.7 cm. Positive arterial flow to color Doppler assessment. No visible right adnexal mass or cystic structure. Normal sized follicle cysts. Left adnexa: Left ovary sonographically unremarkable. Left ovary measures 4.3 cm x 2.2 cm x 3.6 cm. Positive arterial flow to color Doppler assessment. No visible left adnexal mass or cystic lesion. Normal sized follicle cysts. Intraperitoneal space: Tiny amount of free fluid in the cul-de-sac most likely physiologic. US/US transvaginal [id number] IMPRESSION: No sonographic evidence of acute pelvic pathology.
[2020-07-16 16:54] LABS: Basophils # 0.1 10^3/uL (0.0-0.1); Basophils % 0.6 %; Eosinophils # 0.2 10^3/uL (0.0-0.8); Hematocrit 36.4 % (37.0-47.0); Hemoglobin 11.4 g/dL (11.5-15.3); Lymphocytes # 2.6 10^3/uL (0.8-4.8); Mean Corpuscular HGB Conc 31.3 g/dL (30.0-36.0); Mean Corpuscular Hemoglobin 26.8 pg (28.0-34.0); Mean Corpuscular Volume 85.6 fL (81-99); Mean Platelet Volume 12.1 fL (7.4-10.4); Monocytes # 0.7 10^3/uL (0.2-0.9); Monocytes % 5.8 %; Neutrophils # 8.17 10^3/uL (1.8-7.7); Neutrophils % 69.3 %; Nucleated Red Blood Cells % 0 %; Platelet Count 354 10^3/cmm (130-400); Red Blood Count 4.25 10^6/uL (4.1-5.3); Red Cell Distribution Width 15.5 % (12.1-15.1); White Blood Count 11.8 10^3/uL (4.0-10.0)
[2020-07-16 17:18] LABS: Alanine Aminotransferase 7 U/L (0-33); Albumin Level 4.3 g/dL (3.5-5.2); Alkaline Phosphatase 79 IU/L (35-105); Anion Gap 13.9 (5-19); Aspartate Amino Transferase 9 U/L (0-32); Blood Urea Nitrogen 8 mg/dL (6-20); Calcium 8.8 mg/dL (8.5-10.5); Carbon Dioxide 24 mmol/L (22-29); Chloride 103 mmol/L (98-107); Creatinine Clr Calc Pharmacy 132.3767; Globulin 2.9 g/dL (1.3-4.6); Glomerular Filtration Rate 98.3 mL/min (90-130); Glucose 92 mg/dL (65-115); Magnesium 1.8 mg/dL (1.7-2.3); Osmolality Calculated 282 mOsm/kg (285-295); Potassium 3.9 mmol/L (3.5-5.1); Sodium 137 mmol/L (136-145); Total Bilirubin 0.2 mg/dL (0.15-1.2); Total Protein 7.2 g/dL (6.6-8.7)
[2020-07-16 17:59] LABS: HCG, Serum Qual Negative (Negative)
[2020-07-16] MEDS: ketorolac 30 mg/mL INJ IVP (18:01)
[2020-07-16 18:12] VITALS: BP 128/99; PULSE 90; RESP 17; O2SAT 100
== END 2020-07-16 18:12 | disposition home or self-care (01) ==
PROVIDERS: Nurse Practitioner Family; Emergency Provider Physician Assistant; PCP Nurse Practitioner Family
DX: N93.8 Other specified abnormal uterine and vaginal bleeding (principal); I12.9 Hypertensive chronic kidney disease with stage 1 through stage 4 chronic kidney disease, or unspecified chronic kidney disease; N18.30 Chronic kidney disease, stage 3 unspecified; F17.290 Nicotine dependence, other tobacco product, uncomplicated
CPT/HCPCS: 76830; 80053; 83735; 84703; 85025; 96374; 99283; J1885

== ENCOUNTER → 2020-07-24 08:10 | Outpatient (BNVA) | payer MEDICAID, SELFPAY | PROVIDERS: PCP Nurse Practitioner Family; Visit Provider Specialist | DX: G56.02 Carpal tunnel syndrome, left upper limb (principal); G54.0 Brachial plexus disorders; F17.210 Nicotine dependence, cigarettes, uncomplicated | CPT/HCPCS: 95885; 95910; 99202 ==

== ENCOUNTER → 2021-04-02 13:49 | Outpatient (BNVA) | payer MEDICAID, SELFPAY | PROVIDERS: PCP Nurse Practitioner Family; Visit Provider Nurse Practitioner Family | DX: E03.9 Hypothyroidism, unspecified (principal); F41.0 Panic disorder [episodic paroxysmal anxiety]; I10 Essential (primary) hypertension; N18.30 Chronic kidney disease, stage 3 unspecified | CPT/HCPCS: 80053; 80061; 84443 ==

== ENCOUNTER 2021-06-01 09:24 | Emergency (ER) | payer MEDICAID, SELFPAY ==
[2021-06-01 09:42] VITALS: BP 148/89; PULSE 75; RESP 16; TEMP 37.2; O2SAT 98; BMI 38.9
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
[2021-06-01] MEDS: orphenadrine 30 mg/mL Inj 2 mL 60 MG IM (10:46)
== END 2021-06-01 11:52 | disposition home or self-care (01) ==
PROVIDERS: Emergency Provider Physician Assistant; PCP Nurse Practitioner Family
DX: M54.9 Dorsalgia, unspecified (principal); I12.9 Hypertensive chronic kidney disease with stage 1 through stage 4 chronic kidney disease, or unspecified chronic kidney disease; N18.30 Chronic kidney disease, stage 3 unspecified; Z87.891 Personal history of nicotine dependence
CPT/HCPCS: 70450; 71101; 72125; 72128; 96372; 99283; J2360

== ENCOUNTER → 2021-07-28 08:13 | Outpatient (BNVA) | payer MEDICAID, SELFPAY | PROVIDERS: PCP Nurse Practitioner Family; Visit Provider Nurse Practitioner Family | DX: E03.1 Congenital hypothyroidism without goiter (principal); E55.9 Vitamin D deficiency, unspecified; F41.1 Generalized anxiety disorder; F33.1 Major depressive disorder, recurrent, moderate; I10 Essential (primary) hypertension; E03.9 Hypothyroidism, unspecified | CPT/HCPCS: 80053; 80061; 84443 ==

== ENCOUNTER → 2021-09-22 15:25 | Outpatient (BNVA) | payer MEDICAID, SELFPAY | PROVIDERS: PCP Nurse Practitioner Family; Visit Provider Obstetrics & Gynecology | DX: N93.9 Abnormal uterine and vaginal bleeding, unspecified (principal); N92.0 Excessive and frequent menstruation with regular cycle | CPT/HCPCS: 83001; 84146; 84443; 84702; 85027 ==

== ENCOUNTER → 2021-10-12 12:36 | Outpatient (BNVA) | payer MEDICAID, SELFPAY | PROVIDERS: PCP Nurse Practitioner Family; Visit Provider Obstetrics & Gynecology | DX: N92.0 Excessive and frequent menstruation with regular cycle (principal); R10.2 Pelvic and perineal pain; G89.29 Other chronic pain | CPT/HCPCS: 76830; 76856 ==

== ENCOUNTER 2021-10-13 23:03 | Emergency (ER) | payer MEDICAID, SELFPAY ==
[2021-10-13 23:06] VITALS: BP 135/92; PULSE 104; RESP 18; TEMP 36.7; O2SAT 98; BMI 40.5
--- NOTE | 2021-10-14 00:24 | ED_ITS ---
HPI - Female Genitourinary General: Chief complaint: Urogenital-Female Stated complaint: blood in urine Time Seen by Provider: 10/14/21 00:15 History of Present Illness: Ms. Dasilva is a 31-year-old lady with history of abdominal surgeries who presents to the emergency department due to blood in urine and flank pain. Onset of symptoms was yesterday with generalized abdominal discomfort in the suprapubic region. She subsequently has had aching cramping as well as left-sided sharp flank pain. She notes urine with blood in it. She denies vaginal bleeding or discharge. She does have constipation. She does report a history of transvaginal ultrasound on 10/12. Overall course of sy mptoms has worsened. Intensity is moderate. No other specific changes in health, exacerbating, or alleviating factors identified. Onset (ago): day(s) Severity: moderate Quality of pain: cramping and aching Urinary symptoms: Hematuria Date of Last Menstrual Period: 09/24/21 Review of Systems General: Reports: 10 or more systems reviewed and unremarkable except in HPI and below PFSH ED PFSH: Medical History Anemia, unspecified Bleeding hemorrhoid Chronic kidney disease, stage 3 (moderate) Congenital hypothyroidism Essential (primary) hypertension Generalized anxiety disorder Major depressive disorder, recurrent episode, moderate with anxious distress Panic disorder without agoraphobia Polycystic ovarian syndrome Vitamin D deficiency Surgical History Hx of section (~2012) Hx of hernia repair x 3 Hx of tubal ligation (~2012) Family History Father , 2003 JEFFREY (obstructive sleep apnea) Alcohol abuse drug abuse Mother Lung disease COPD Alcohol abuse JEFFREY (obstructive sleep apnea) Heart disease Stomach cancer metastasis Family/Other Stroke Thyroid condition maternal aunt Breast cancer maternal aunt, early 30's Grandfather Clotting disorder maternal Stroke maternal Brother Hyperlipidemia Denies family history of Colon cancer Ovarian cancer Diabetes Anesthesia complication Bleeding disorder Hypertension Uterine cancer Social History Smoking and tobacco status: never smoked History of recent travel: No Current gender identity: Female Female Reproductive History: Date of last menstrual period: 09/24/21 Physical Exam Const: COMMON NORMALS: alert GENERAL APPEARANCE: cooperative and well developed HENMT: COMMON NORMALS: normocephalic and atraumatic HEAD & SCALP: normocephalic and atraumatic Eye: COMMON NORMALS: conjunctivae normal CONJUNCTIVA: Yes conjunctivae normal SCLERA: sclerae normal Neck/C-Spine: COMMON NORMALS: supple GENERAL: Yes trachea midline Resp: COMMON NORMALS: normal respiratory effort EFFORT & INSPECTION: Yes able to speak in complete sentences Cardio: COMMON NORMALS: regular rate and regular rhythm RATE: regular rate RHYTHM: regular rhythm GI: COMMON NORMALS: Soft to palpation PALPATION: Yes Soft to palpation, Yes Tenderness to palpation present (GI), No Guarding due to palpation present (GI) and No Rigid due to palpation Extremity: GENERAL: Yes normal exam except as noted and No edema Neuro: COMMON NORMALS: moves all extremities SENSORIUM/ORIENTATION: Yes alert and No Orientation impaired Psych: COMMON NORMALS: mental status grossly normal and Normal thought process present THOUGHT PROCESS: Normal thought process present Course ED course: - Patient was seen and evaluated by me at bedside - Patient placed on cardiac monitors, IV access obtained - Initial evaluation notable for exam as above - Labs personally interpreted by me -Fluids given - Labs notable for no leukocytosis, normocytic anemia. Metabolic panel without acute derangement to explain symptoms. Hematuria present without evidence of UTI. - Imaging notable for kidney stones without evidence of ureterolithiasis - Upon serial reexamination after treatment the patient was improved - Based on patient history, evaluation, and testing as interpreted the most likely cause of the patient's condition is hematuria and abdominal pain of uncertain etiology - The results of ED evaluation were discussed with the patient including prescriptions and/or symptomatic cares (if applicable) including appropriate and responsible use, followup plan, and return precautions. The patient verbalized understanding and felt safe for discharge. - Patient discharged in satisfactory condition. Note: Click bubbles or prepopulated clifton in note writing are used for assistance with data collection and billing and are inherently more limited than narrative and other text portions of this note. Please use narrative for additional clinical history and defer to narrative/free test for any case of contradictory information. If information appears in only free text or click bubble it should be considered present or absent as reported. Please contact note newswriter for clarifications of clinical information or contradictory information. MDM is a brief summary, contradictory or erroneous seeming information should be clarified and full note should be reviewed. Vital Signs: Vital signs: Vital Signs Temperature 98.1 F 10/13/21 23:06 Pulse Rate 90 10/14/21 03:42 Respiratory Rate 18 10/13/21 23:06 Blood Pressure 135/92 10/13/21 23:06 Pulse Oximetry 100 10/14/21 03:42 Oxygen Delivery Me thod 10/13/21 23:06 MDM - Female Medical Decision Making 31-year-old lady presenting with flank pain and abdominal pain with urinary symptoms. Hematuria noted without clear etiology identified otherwise. Improved with fluids. Satisfactory for outpatient management. Medical Records I reviewed the patient's medical records. Lab Data I reviewed the patient's lab results. : 10/14/21 00:39 10/14/21 00:39 Radiology Impressions Abdomen/Pelvis CT 10/14/21 00:38 IMPRESSION: Right kidney upper pole, right kidney mid zone and bilateral kidney lower pole multiple 1-3 mm calculi (greater than 7). Some of these were seen on the prior contrast enhanced CT. No hydronephrosis, ureterectasis or definite ureteral calculi. Numerous benign phleboliths in the pelvis, which limits assessment for distal ureteral calculi. Laboratory Results WBC 8.9 10^3/uL (4.0-10.0) 10/14/21 00:39 RBC 4.43 10^6/uL (4.1-5.3) 10/14/21 00:39 Hgb 11.2 g/dL (11.5-15.3) L 10/14/21 00:39 Hct 36.6 % (37.0-47.0) L 10/14/21 00:39 MCV 82.6 fl (81-99) 10/14/21 00:39 MCH 25.3 pg (28.0-34.0) L 10/14/21 00:39 MCHC 30.6 g/dL (30.0-36.0) 10/14/21 00:39 RDW 16.9 % (12.1-15.1) H 10/14/21 00:39 Plt Count 380 10^3/cmm (130-400) 10/14/21 00:39 MPV 12.2 fL (7.4-10.4) H 10/14/21 00:39 Neut % (Auto) 52.6 % 10/14/21 00:39 Lymph % (Auto) 35.6 % 10/14/21 00:39 Stephens % (Auto) 6.9 % 10/14/21 00:39 Eos % (Auto) 3.8 % 10/14/21 00:39 Baso % (Auto) 0.8 % 10/14/21 00:39 Neut # (Auto) 4.66 10^3/uL (1.8-7.7) 10/14/21 00:39 Lymph # (Auto) 3.2 10^3/uL (0.8-4.8) 10/14/21 00:39 Stephens # (Auto) 0.6 10^3/uL (0.2-0.9) 10/14/21 00:39 Eos # (Auto) 0.3 10^3/uL (0.0-0.8) 10/14/21 00:39 Baso # (Auto) 0.1 10^3/uL (0.0-0.1) 10/14/21 00:39 Nucleated RBC % (auto) 0 % 10/14/21 00:39 Nucleated RBCs # 0.0 /100WBC 10/14/21 00:39 Sodium 139 mmol/L (136-145) 10/14/21 00:39 Potassium 3.8 mmol/L (3.5-5.1) 10/14/21 00:39 Chloride 101 mmol/L (98-107) 10/14/21 00:39 Carbon Dioxide 26 mmol/L (22-29) 10/14/21 00:39 Anion Gap 15.8 (5-19) 10/14/21 00:39 BUN 7 mg/dL (6-20) 10/14/21 00:39 Creatinine 1.0 mg/dL (0.5-0.9) H 10/14/21 00:39 GFR Calculation 64.7 mL/min (90-130) L 10/14/21 00:39 Glucose 122 mg/dL (65-115) H 10/14/21 00:39 Calculated Osmolality 287 mOsm/kg (285-295) 10/14/21 00:39 Calcium 9.7 mg/dL (8.5-10.5) 10/14/21 00:39 Total Bilirubin 0.2 mg/dL (0.15-1.2) 10/14/21 00:39 AST 11 U/L (0-32) 10/14/21 00:39 ALT 7 U/L (0-33) 10/14/21 00:39 Alkaline Phosphatase 84 IU/L (35-105) 10/14/21 00:39 Total Protein 7.2 g/dL (6.6-8.7) 10/14/21 00:39 Albumin 4.2 g/dL (3.5-5.2) 10/14/21 00:39 Globulin 3.0 g/dL (1.3-4.6) 10/14/21 00:39 Urine Color Other (Yellow) 10/14/21 00:05 Urine Appearance Hazy (CLEAR) A 10/14/21 00:05 Urine pH 6 (5-7) 10/14/21 00:05 Ur Specific Homer 1.005 (1.005-1.030) 10/14/21 00:05 Urine Protein 1+ (Negative) H 10/14/21 00:05 Urine Glucose (UA) Norm (Normal) 10/14/21 00:05 Urine Ketones Negative (Negative) 10/14/21 00:05 Urine Blood 3+ (Negative) H 10/14/21 00:05 Urine Nitrate Negative (Negative) 10/14/21 00:05 Urine Bilirubin Neg (Negative) 10/14/21 00:05 Urine Urobilinogen Norm mg/dL (Negative) 10/14/21 00:05 Ur Leukocyte Esterase 1+ (Negative) H 10/14/21 00:05 Urine RBC Too numerous to cnt /hpf (0-2) H 10/14/21 00:05 Urine WBC 0-4 /hpf (0-5) H 10/14/21 00:05 Ur Squamous Epith Cells 0-4 /hpf (0-5) H 10/14/21 00:05 Amorphous Sediment Not Reportable 10/14/21 00:05 Urine Bacteria Trace /hpf (NONE) 10/14/21 00:05 Urine HCG, Qual Negative (Negative) 10/14/21 00:05 Discharge Plan Discharge Patient Disposition: Home Clinical Impression: Abdominal pain, Hematuria, Anemia Condition: Stable Prescriptions: New ondansetron 4 mg tablet,disintegrating 4 mg PO Q8H PRN (Reason: nausea and vomiting) Qty: 15 0RF Flomax 0.4 mg capsule 0.4 mg PO DAILY Qty: 10 0RF oxycodone 5 mg tablet 5 mg PO Q4H PRN (Reason: pain) Qty: 10 0RF No Action simvastatin 20 mg tablet 20 mg PO .QHS 30 Days Qty: 30 5RF levothyroxine [Synthroid] 125 mcg tablet 125 mcg PO DAILY Qty: 90 0RF norgestimate-ethinyl estradiol [Sprintec (28)] 0.25-35 mg-mcg tablet 1 tab PO DAILY Qty: 84 0RF Discharge Orders: Discharge ED (Routine); Ordered 10/14/21 Ordered By: Sam Gonzalez Referrals: Rosalva Mckeon FNP [Primary Care Provider] - Discharge Diet: Advance as tolerated and Clear Liquid Discharge Activity: Increase activity as tolerated Patient Instructions: Hematuria (ED), Abdominal Pain (ED), Opioid Safety Activity Restrictions/Additional Instructions: Thank you for visiting the emergency department. You were seen and evaluated for urinary symptoms. The exact cause of your symptoms is unclear. You do have blood in your urine which may be related to recent passed kidney stone though I do not see any significant evidence of infection. CT does not reveal obstructing kidney stones though as discussed you do have some in the kidney still. You will be treated for kidney stone/recently passed kidney stone. Please follow-up with your primary care provider. I recommend repeat urinalysis in 1 week to ensure that hematuria has resolved, if it is not resolved I recommend follow-up with urology. Please return to the emergency department for worsening symptoms or anything else that you are concerned about and feel needs emergency department evaluation. Coding Level of Care Code ED [employer] Supervisor for Ana Whitt
[2021-10-14 00:31] LABS: Urine Color Other (Yellow)
[2021-10-14 00:32] LABS: Add Urine Culture? Yes; Add Urine Microscopic? YES; Bacteria Urine TRACE /hpf; Bilirubin Urine Neg (Negative); Blood Urine 3+ (Negative); Glucose Urine UA Norm (Normal); Ketones Urine Negative (Negative); Leukocyte Esterase Urine 1+ (Negative); Nitrate Urine Negative (Negative); Protein Urine 1+ (Negative); RBC Urine TOO NUMEROUS TO CNT /hpf (0-2); Specific Gravity, Urine 1.005 (1.005-1.030); Squamous Epithelial Cell Urine 0-4 /hpf (0-5); Urine Appearance Hazy (CLEAR); Urobilinogen Urine Norm (Negative); WBC Urine 0-4 /hpf (0-5); pH Urine 6 (5-7)
--- NOTE | 2021-10-14 00:38 | CTR_ITS ---
PROCEDURE INFORMATION: Exam: CT Abdomen And Pelvis Without Contrast Exam date and time: 10/14/2021 12:44 AM Age: 31 years old Clinical indication: Abdominal pain; Prior surgery; Surgery type: Hernia repair w/mesh. Csection. Tubal ligation. Patient HX: Left flank pain with hematuria/dysuria. ; Additional info: Flank pain L, hematuria TECHNIQUE: Imaging protocol: Computed tomography of the abdomen and pelvis without contrast. Radiation optimization: All CT scans at this facility use at least one of these dose optimization techniques: automated exposure control; mA and/or kV adjustment per patient size (includes targeted exams where dose is matched to clinical indication); or iterative reconstruction. COMPARISON: CT abdomen pelvis w con* [id number] 06/08/2020 11:00 PM RADIATION DOSE METRICS: Total DLP (mGy-cm): 885.89 FINDINGS: Lungs: Minimal dependent atelectasis is seen in the lung bases. Small parenchymal band is seen in the inferior right middle lobe. Liver: Appears unremarkable on the non-contrast CT. Gallbladder and bile ducts: No calcified stones. No ductal dilation. Pancreas: Appears unremarkable on the non-contrast CT. No ductal dilation. Spleen: Appears unremarkable on the non-contrast CT. No splenomegaly. Adrenal glands: Normal. No mass. Kidneys and ureters: Right kidney upper pole, right kidney mid zone and bilateral kidney lower pole multiple 1-3 mm calculi are seen (greater than 7). Some of these were seen on the prior contrast enhanced CT. There is no hydronephrosis, ureterectasis or definite ureteral calculi. There are no contour deforming renal masses seen on the noncontrast CT. Stomach and bowel: The noncontrast opacified stomach appears unremarkable. The noncontrast opacified small bowel loops appear unremarkable. The noncontrast opacified colonic loops appear unremarkable. The lack of orally administered contrast material limits assessment. Appendix: No CT evidence of appendicitis. Intraperitoneal space: No abdominal ascites. No free air. There are numerous benign phleboliths in the pelvis, which limits assessment for distal ureteral calculi. Vasculature: No abdominal aortic aneurysm. Lymph nodes: No enlarged lymph nodes. Urinary bladder: Unremarkable as visualized. Reproductive: Unremarkable as visualized. Bones/joints: No acute osseous abnormality seen. Soft tissues: Diastasis of the rectus abdominus muscles is seen with fascial protrusion. Postsurgical changes of the periumbilical region are seen, in this patient with history of hernia repair with mesh. CT/CT kidney stone [id number] IMPRESSION: Right kidney upper pole, right kidney mid zone and bilateral kidney lower pole multiple 1-3 mm calculi (greater than 7). Some of these were seen on the prior contrast enhanced CT. No hydronephrosis, ureterectasis or definite ureteral calculi. Numerous benign phleboliths in the pelvis, which limits assessment for distal ureteral calculi.
[2021-10-14] MEDS: sodium chloride 0.9% 1,000 ML 999 ML IV (00:42)
[2021-10-14 01:07] LABS: Basophils # 0.1 10^3/uL (0.0-0.1); Basophils % 0.8 %; Eosinophils # 0.3 10^3/uL (0.0-0.8); Eosinophils % 3.8 %; Hematocrit 36.6 % (37.0-47.0); Hemoglobin 11.2 g/dL (11.5-15.3); Lymphocytes # 3.2 10^3/uL (0.8-4.8); Lymphocytes % 35.6 %; Mean Corpuscular HGB Conc 30.6 g/dL (30.0-36.0); Mean Corpuscular Hemoglobin 25.3 pg (28.0-34.0); Mean Corpuscular Volume 82.6 fl (81-99); Mean Platelet Volume 12.2 fL (7.4-10.4); Monocytes # 0.6 10^3/uL (0.2-0.9); Monocytes % 6.9 %; Neutrophils # 4.66 10^3/uL (1.8-7.7); Neutrophils % 52.6 %; Nucleated Red Blood Cells % 0 %; Platelet Count 380 10^3/cmm (130-400); Red Blood Count 4.43 10^6/uL (4.1-5.3); Red Cell Distribution Width 16.9 % (12.1-15.1); White Blood Count 8.9 10^3/uL (4.0-10.0)
[2021-10-14 01:22] LABS: Alanine Aminotransferase 7 U/L (0-33); Albumin Level 4.2 g/dL (3.5-5.2); Alkaline Phosphatase 84 IU/L (35-105); Anion Gap 15.8 (5-19); Aspartate Amino Transferase 11 U/L (0-32); Blood Urea Nitrogen 7 mg/dL (6-20); Calcium 9.7 mg/dL (8.5-10.5); Carbon Dioxide 26 mmol/L (22-29); Chloride 101 mmol/L (98-107); Glomerular Filtration Rate 64.7 mL/min (90-130); Glucose 122 mg/dL (65-115); Osmolality Calculated 287 mOsm/kg (285-295); Potassium 3.8 mmol/L (3.5-5.1); Sodium 139 mmol/L (136-145); Total Bilirubin 0.2 mg/dL (0.15-1.2); Total Protein 7.2 g/dL (6.6-8.7)
[2021-10-14 03:42] VITALS: PULSE 90; O2SAT 100
== END 2021-10-14 03:44 | disposition home or self-care (01) ==
PROVIDERS: Nurse Practitioner Family; Emergency Provider Emergency Medicine; PCP Nurse Practitioner Family
DX: R31.9 Hematuria, unspecified (principal); R10.9 Unspecified abdominal pain; D64.9 Anemia, unspecified; I12.9 Hypertensive chronic kidney disease with stage 1 through stage 4 chronic kidney disease, or unspecified chronic kidney disease; N18.30 Chronic kidney disease, stage 3 unspecified
CPT/HCPCS: 74176; 80053; 81001; 81025; 85025; 87086; 96360; 99285; J7030

== ENCOUNTER 2021-11-20 10:25 | Emergency (ER) | payer MEDICAID, SELFPAY ==
[2021-11-20 10:38] VITALS: BP 159/99; PULSE 87; RESP 18; TEMP 36.7; O2SAT 100; BMI 39.6
[2021-11-20 10:56] LABS: HCG Qualitative Urine. Negative (Negative)
[2021-11-20 11:15] LABS: Add Urine Microscopic? YES; Bilirubin Urine Neg (Negative); Blood Urine 3+ (Negative); Glucose Urine UA Norm (Normal); Ketones Urine Negative (Negative); Leukocyte Esterase Urine Negative (Negative); Nitrate Urine Negative (Negative); Protein Urine Neg (Negative); Urine Appearance Clear (CLEAR); Urine Color Colorless (Yellow); Urobilinogen Urine Norm (Negative); pH Urine 7 (5-7)
--- NOTE | 2021-11-20 11:33 | W.ED.GENADLT ---
HPI - General Adult General: Chief complaint: Abdominal Pain Stated complaint: low abd pain Time Seen by Provider: 11/20/21 11:07 History of Present Illness: Patient is a 31-year-old female with history of prior renal colic and UTI presenting to the emergency room for complaints of left-sided flank pain since waking up this morning around 8:00. Patient says the pain is unbearable and she could barely walk. Patient reports the pain feels similar to prior episodes of kidney stones. Patient has any fever/chills but reports nausea without vomiting. Patient is currently on her period. Patient denies any new vaginal discharge. Patient has no urinary complaints including hematuria polyuria or dysuria. Patient has no other complaints including melena/hematochezia or any abdominal pain. Onset:3 hrs ago Duration:3 hrs Location:home Severity:moderate Associated symptoms: Reports nausea; Deny chest pain, dyspnea, rash, palpitations or vomiting Review of Systems Const: Denies: fever(s) or chills Eyes: Denies: change in vision ENMT: Denies: mouth pain Card: Denies: chest pain or palpitations Resp: Denies: dyspnea or non-productive cough GI: Reports: nausea; Denies: abdominal pain, vomiting or diarrhea : Reports: flank pain (+L flank pain); Denies: dysuria Musc: Denies: extremity pain Skin/Breast: Denies: rash or new lesions Neuro: Denies: weakness in extremities Psych: Reports: other (Normal mood) Asim/Lymph: Denies: easy bruising PFSH ED PFSH: Medical History Anemia, unspecified Bleeding hemorrhoid Chronic kidney disease, stage 3 (moderate) Congenital hypothyroidism Essential (primary) hypertension Generalized anxiety disorder Major depressive disorder, recurrent episode, moderate with anxious distress Panic disorder without agoraphobia Polycystic ovarian syndrome Vitamin D deficiency Surgical History Hx of section (~2012) Hx of hernia repair x 3 Hx of tubal ligation (~2012) Family History Father , 2003 JEFFREY (obstructive sleep apnea) Alcohol abuse drug abuse Mother Lung disease COPD Alcohol abuse JEFFREY (obstructive sleep apnea) Heart disease Stomach cancer metastasis Family/Other Stroke Thyroid condition maternal aunt Breast cancer maternal aunt, early 30's Grandfather Clotting disorder maternal Stroke maternal Brother Hyperlipidemia Denies family history of Colon cancer Ovarian cancer Diabetes Anesthesia complication Bleeding disorder Hypertension Uterine cancer Social History Smoking and tobacco status: never smoked History of recent travel: No Current gender identity: Female Female Reproductive History: Date of last menstrual period: 11/15/21 Physical Exam Const: COMMON NORMALS: alert HENMT: COMMON NORMALS: atraumatic HEAD & SCALP: atraumatic MOUTH: moist mucous membranes not abnormal Eye: COMMON NORMALS: EOMs intact bilaterally and conjunctivae normal CONJUNCTIVA: Yes conjunctivae normal Neck/C-Spine: COMMON NORMALS: full ROM and supple Resp: COMMON NORMALS: normal respiratory effort and clear to auscultation bilaterally AUSCULTATION: clear to auscultation bilaterally Cardio: COMMON NORMALS: regular rate RATE: regular rate GI: COMMON NORMALS: Soft to palpation and non-tender PALPATION: Yes Soft to palpation OTHER: +mild L flank TTP. NO guarding rebound, guarding, rigidity. + L CVA tenderness to percussion. Neg Roman/Neg McBurney's point tenderness, no suprabupic tenderness to palpation. Extremity: COMMON NORMALS: full ROM Neuro: SENSORIUM/ORIENTATION: Yes alert MOTOR EXAM: No Abnormal motor strength present and Other motor observations present (no focal motor deficits) Psych: COMMON NORMALS: speech normal SPEECH: Yes normal speech MOOD & AFFECT: Yes euthymic mood Course Vital Signs: Vital signs: Vital Signs Temperature 98.1 F 11/20/21 10:38 Pulse Rate 87 11/20/21 10:38 Respiratory Rate 18 11/20/21 15:04 Blood Pressure 159/99 11/20/21 10:38 Pulse Oximetry 98 11/20/21 12:32 Oxygen Delivery Me thod 11/20/21 10:38 [facility] - General Adult Medical Decision Making Patient is a 31-year-old female with history of prior renal colic and UTI presenting to the emergency room for complaints of left-sided flank pain since waking up this morning around 8:00. Patient is hemodynamically stable. Patient has mild left flank tenderness palpation. Rest of exam unremarkable. Work-up showed white count 9.8. Creatinine of 0.9. UA is negative for any UTI. CT showed 4mm stone with mild hydronephrosis. She reports pain improvement while observed in emergency after pain medication. I have given patient follow up with our case management rn to be seen by our outpatient by Dr. Farmer for recurrent kidney stones. Patient aware of a call from our case management rn to schedule for appointment(s) and verbalizes understanding of the importance of following up. Disposition: Discharge. Patient counseled regarding diagnostic impression, treatment plan. Patient given ED strict return precautions to return for continuation, worsening, or development of new symptoms. Instructed to f/u w/ PCP regarding symptoms today. Patient verbalized understanding. Lab Data : 11/20/21 12:20 11/20/21 15:03 Radiology Impressions Abdomen/Pelvis CT 11/20/21 14:59 IMPRESSION: 1. Mild right-sided hydroureteronephrosis, secondary to a 4 mm right UVJ calculus. 2. Additional findings, as above. Laboratory Results WBC 9.8 10^3/uL (4.0-10.0) 11/20/21 12:20 RBC 4.59 10^6/uL (4.1-5.3) 11/20/21 12:20 Hgb 11.7 g/dL (11.5-15.3) 11/20/21 12:20 Hct 38.4 % (37.0-47.0) 11/20/21 12:20 MCV 83.7 fl (81-99) 11/20/21 12:20 MCH 25.5 pg (28.0-34.0) L 11/20/21 12:20 MCHC 30.5 g/dL (30.0-36.0) 11/20/21 12:20 RDW 16.3 % (12.1-15.1) H 11/20/21 12:20 Plt Count 464 10^3/cmm (130-400) H 11/20/21 12:20 MPV 12.0 fL (7.4-10.4) H 11/20/21 12:20 Neut % (Auto) 60.2 % 11/20/21 12:20 Lymph % (Auto) 26.7 % 11/20/21 12:20 Mayes % (Auto) 7.0 % 11/20/21 12:20 Eos % (Auto) 4.7 % 11/20/21 12:20 Baso % (Auto) 1.1 % 11/20/21 12:20 Neut # (Auto) 5.89 10^3/uL (1.8-7.7) 11/20/21 12:20 Lymph # (Auto) 2.6 10^3/uL (0.8-4.8) 11/20/21 12:20 Mayes # (Auto) 0.7 10^3/uL (0.2-0.9) 11/20/21 12:20 Eos # (Auto) 0.5 10^3/uL (0.0-0.8) 11/20/21 12:20 Baso # (Auto) 0.1 10^3/uL (0.0-0.1) 11/20/21 12:20 Nucleated RBC % (auto) 0 % 11/20/21 12:20 Nucleated RBCs # 0.0 /100WBC 11/20/21 12:20 Sodium 137 mmol/L (136-145) 11/20/21 15:03 Potassium 4.0 mmol/L (3.5-5.1) 11/20/21 15:03 Chloride 104 mmol/L (98-107) 11/20/21 15:03 Carbon Dioxide 23 mmol/L (22-29) 11/20/21 15:03 Anion Gap 14.0 (5-19) 11/20/21 15:03 BUN 9 mg/dL (6-20) 11/20/21 15:03 Creatinine 0.9 mg/dL (0.5-0.9) 11/20/21 15:03 GFR Calculation 73.0 mL/min (90-130) L 11/20/21 15:03 Glucose 84 mg/dL (65-115) 11/20/21 15:03 Calculated Osmolality 282 mOsm/kg (285-295) L 11/20/21 15:03 Calcium 8.4 mg/dL (8.5-10.5) L 11/20/21 15:03 Total Bilirubin 0.2 mg/dL (0.15-1.2) 11/20/21 15:03 AST 12 U/L (0-32) 11/20/21 15:03 ALT 13 U/L (0-33) 11/20/21 15:03 Alkaline Phosphatase 75 U/L (35-105) 11/20/21 15:03 Total Protein 6.7 g/dL (6.6-8.7) 11/20/21 15:03 Albumin 3.7 g/dL (3.5-5.2) 11/20/21 15:03 Globulin 3.0 g/dL (1.3-4.6) 11/20/21 15:03 HCG, Qual Negative (Negative) 11/20/21 10:41 Urine Color Colorless (Yellow) 11/20/21 10:41 Urine Appearance Clear (CLEAR) 11/20/21 10:41 Urine pH 7 (5-7) 11/20/21 10:41 Ur Specific Valmy 1.000 (1.005-1.030) L 11/20/21 10:41 Urine Protein Neg (Negative) 11/20/21 10:41 Urine Glucose (UA) Norm (Normal) 11/20/21 10:41 Urine Ketones Negative (Negative) 11/20/21 10:41 Urine Blood 3+ (Negative) H 11/20/21 10:41 Urine Nitrate Negative (Negative) 11/20/21 10:41 Urine Bilirubin Neg (Negative) 11/20/21 10:41 Urine Urobilinogen Norm mg/dL (Negative) 11/20/21 10:41 Ur Leukocyte Esterase Negative (Negative) 11/20/21 10:41 Urine RBC None /hpf (0-2) 11/20/21 10:41 Urine WBC None /hpf (0-5) 11/20/21 10:41 Ur Squamous Epith Cells None /hpf (0-5) 11/20/21 10:41 Amorphous Sediment Not Reportable 11/20/21 10:41 Urine Bacteria None /hpf (NONE) 11/20/21 10:41 Imaging Data Other Imaging: Radiologist's impression: [facility] [address] [place] [address] CT Scan Report Signed Patient: Katia Dasilva Unit #: [id number] : 1990 Age/Sex: 31 / F ADM Date: 11/20/21 Loc: ER Room/Bed: Attending Dr: Ordering Provider/Ordering MD: Tyra Turcios MD Date of Service: 11/20/21 Procedure(s): CT abdomen pelvis wo con [id number] Accession Number(s): [id number] Report Number: [id number] PROCEDURE INFORMATION: Exam: CT Abdomen And Pelvis Without Contrast Exam date and time: 11/20/2021 3:39 PM Age: 31 years old Clinical indication: Pain and condition or disease; Kidney or ureter condition; Calculus (stone) in kidney; Other: Left flank pain; Prior surgery; Surgery type: Surgery--hernia repair w/mesh, tubal; Additional info: Kidney stone TECHNIQUE: Imaging protocol: Computed tomography of the abdomen and pelvis without contrast. Axial, coronal and sagittal reformatted images were created and reviewed. Radiation optimization: All CT scans at this facility use at least one of these dose optimization techniques: automated exposure control; mA and/or kV adjustment per patient size (includes targeted exams where dose is matched to clinical indication); or iterative reconstruction. COMPARISON: CT kidney stone [id number] 10/14/2021 12:44 AM RADIATION DOSE METRICS: Total DLP (mGy-cm): 958.98 FINDINGS: Liver: 8 mm low-density lesion in the right hepatic lobe, too small to characterize. Gallbladder and bile ducts: No radiodense gallstones. No biliary ductal dilatation. Pancreas: Unremarkable. Spleen: Unremarkable. Adrenal glands: Normal. No mass. Kidneys and ureters: Mild right-sided hydroureteronephrosis, secondary to a 4 mm right UVJ calculus (axial image 75 and coronal image 31). 2 mm distal right ureteral calculus (axial image 71 and coronal image 32). Nonobstructing bilateral renal calculi. Stomach and bowel: No bowel wall thickening. No obstruction. No pneumatosis. Appendix: Normal. Intraperitoneal space: No free fluid. No organized fluid collection. No free air. Vasculature: Unremarkable. No aneurysm. Lymph nodes: No pathologically enlarged lymph nodes. Urinary bladder: Unremarkable as visualized. Reproductive:? Unremarkable. Bones/joints: No acute osseous abnormality. Mild degenerative changes. Soft tissues: Evidence of prior umbilical herniorrhaphy. CT/CT abdomen pelvis wo con [id number] IMPRESSION: 1. Mild right-sided hydroureteronephrosis, secondary to a 4 mm right UVJ calculus. 2. Additional findings, as above. ? Dictated By: Andrade Hobson MD Signed By: Andrade Hobson MD Signed Date/Time: 11/20/21 1617 DD/ 1539 Discharge Plan Discharge Patient Disposition: Home Clinical Impression: Renal colic Condition: Stable Prescriptions: New Percocet 5-325 mg tablet 1 tab PO Q8H PRN (Reason: pain) Qty: 9 0RF No Action simvastatin 20 mg tablet 20 mg PO .QHS 30 Days Qty: 30 5RF levothyroxine [Synthroid] 125 mcg tablet 125 mcg PO DAILY Qty: 90 0RF norgestimate-ethinyl estradiol [Sprintec (28)] 0.25-35 mg-mcg tablet 1 tab PO DAILY Qty: 84 0RF ondansetron 4 mg tablet,disintegrating 4 mg PO Q8H PRN (Reason: nausea and vomiting) Qty: 15 0RF Flomax 0.4 mg capsule 0.4 mg PO DAILY Qty: 10 0RF oxycodone 5 mg tablet 5 mg PO Q4H PRN (Reason: pain) Qty: 10 0RF Discharge Orders: Discharge ED (Routine); Ordered 11/20/21 Ordered By: Tyra Turcios Referrals: Rosalva Mckeon FNP [Primary Care Provider] - Discharge Diet: Advance as tolerated Discharge Activity: Increase activity as tolerated Patient Instructions: Renal Colic (ED), Pain Management Activity Restrictions/Additional Instructions: Please come back if you have any worsening abdominal pain, fever or chills, nausea or vomiting, diarrhea, blood in the stool, inability hold down liquid or solids, or any new concerning complaints. Our case management rn will have you follow-up with Dr. Farmer in the next few days. You would be expected to have a phone call with our case management rn who will put you on the schedule. You can expect a call from us in the next 2-3 days. If you don't hear from us, call us back in the emergency room at [phone]. Coding Level of Care Code ED Transmission Calibration Engineer for Ana Whitt Exam Comprehensive
[2021-11-20 11:38] LABS: Add Urine Culture? No
[2021-11-20 12:29] LABS: Basophils # 0.1 10^3/uL (0.0-0.1); Basophils % 1.1 %; Eosinophils # 0.5 10^3/uL (0.0-0.8); Eosinophils % 4.7 %; Hematocrit 38.4 % (37.0-47.0); Hemoglobin 11.7 g/dL (11.5-15.3); Lymphocytes # 2.6 10^3/uL (0.8-4.8); Lymphocytes % 26.7 %; Mean Corpuscular HGB Conc 30.5 g/dL (30.0-36.0); Mean Corpuscular Hemoglobin 25.5 pg (28.0-34.0); Mean Corpuscular Volume 83.7 fl (81-99); Monocytes # 0.7 10^3/uL (0.2-0.9); Neutrophils # 5.89 10^3/uL (1.8-7.7); Neutrophils % 60.2 %; Nucleated Red Blood Cells % 0 %; Platelet Count 464 10^3/cmm (130-400); Red Blood Count 4.59 10^6/uL (4.1-5.3); Red Cell Distribution Width 16.3 % (12.1-15.1); White Blood Count 9.8 10^3/uL (4.0-10.0)
[2021-11-20 12:32] VITALS: RESP 18; O2SAT 98
[2021-11-20] MEDS: morphine 4 mg/mL SDV 1 mL IVP (12:32)
[2021-11-20] MEDS: sodium chloride 0.9% 1,000 ML 999 ML IV ×2 (12:38→13:24)
[2021-11-20] MEDS: HYDROmorphone 1 mg/mL INJ 1 mL 0.5 MG IVP (13:24)
--- NOTE | 2021-11-20 14:59 | CTR_ITS ---
PROCEDURE INFORMATION: Exam: CT Abdomen And Pelvis Without Contrast Exam date and time: 11/20/2021 3:39 PM Age: 31 years old Clinical indication: Pain and condition or disease; Kidney or ureter condition; Calculus (stone) in kidney; Other: Left flank pain; Prior surgery; Surgery type: Surgery--hernia repair w/mesh, tubal; Additional info: Kidney stone TECHNIQUE: Imaging protocol: Computed tomography of the abdomen and pelvis without contrast. Axial, coronal and sagittal reformatted images were created and reviewed. Radiation optimization: All CT scans at this facility use at least one of these dose optimization techniques: automated exposure control; mA and/or kV adjustment per patient size (includes targeted exams where dose is matched to clinical indication); or iterative reconstruction. COMPARISON: CT kidney stone [id number] 10/14/2021 12:44 AM RADIATION DOSE METRICS: Total DLP (mGy-cm): 958.98 FINDINGS: Liver: 8 mm low-density lesion in the right hepatic lobe, too small to characterize. Gallbladder and bile ducts: No radiodense gallstones. No biliary ductal dilatation. Pancreas: Unremarkable. Spleen: Unremarkable. Adrenal glands: Normal. No mass. Kidneys and ureters: Mild right-sided hydroureteronephrosis, secondary to a 4 mm right UVJ calculus (axial image 75 and coronal image 31). 2 mm distal right ureteral calculus (axial image 71 and coronal image 32). Nonobstructing bilateral renal calculi. Stomach and bowel: No bowel wall thickening. No obstruction. No pneumatosis. Appendix: Normal. Intraperitoneal space: No free fluid. No organized fluid collection. No free air. Vasculature: Unremarkable. No aneurysm. Lymph nodes: No pathologically enlarged lymph nodes. Urinary bladder: Unremarkable as visualized. Reproductive: Unremarkable. Bones/joints: No acute osseous abnormality. Mild degenerative changes. Soft tissues: Evidence of prior umbilical herniorrhaphy. CT/CT abdomen pelvis wo con [id number] IMPRESSION: 1. Mild right-sided hydroureteronephrosis, secondary to a 4 mm right UVJ calculus. 2. Additional findings, as above.
[2021-11-20 15:04] VITALS: RESP 18
[2021-11-20] MEDS: morphine 4 mg/mL SDV 1 mL 2 MG IVP (15:04)
[2021-11-20 15:39] LABS: Alanine Aminotransferase 13 U/L (0-33); Albumin Level 3.7 g/dL (3.5-5.2); Alkaline Phosphatase 75 U/L (35-105); Aspartate Amino Transferase 12 U/L (0-32); Blood Urea Nitrogen 9 mg/dL (6-20); Calcium 8.4 mg/dL (8.5-10.5); Carbon Dioxide 23 mmol/L (22-29); Chloride 104 mmol/L (98-107); Glucose 84 mg/dL (65-115); Osmolality Calculated 282 mOsm/kg (285-295); Sodium 137 mmol/L (136-145); Total Bilirubin 0.2 mg/dL (0.15-1.2); Total Protein 6.7 g/dL (6.6-8.7)
[2021-11-20] MEDS: ketorolac 30 mg/mL INJ IVP (16:23)
--- NOTE | 2021-11-23 11:05 | DCPLANNER ---
Addendum entered by Tomasa Donahue 12/01/21 14:37: Patient had a follow up appointment scheduled with urology - patient did attend appointment. Original Note: manager engagement had message to schedule a follow up appointment for patient with urology. manager engagement sent patients information to the front office staff at urology. Patients information will be printed and reviewed. Clinic will call patient with appointment information.
== END 2021-11-20 16:40 | disposition home or self-care (01) ==
PROVIDERS: Physician Assistant; Emergency Provider Emergency Medicine; PCP Nurse Practitioner Family
DX: N23 Unspecified renal colic (principal)
CPT/HCPCS: 74176; 80053; 81001; 81025; 85025; 96361; 96374; 96375; 96376; 99285; J1170; J1885; J2270; J7030

== ENCOUNTER 2021-12-01 10:01 | Outpatient (CLI) | payer MEDICAID, SELFPAY ==
--- NOTE | 2021-12-01 10:10 | XR_ITS ---
WS: [id number] Exam: XR KUB [id number] Date/Time of Exam: 12/01/2021 10:12 AM Reason For Exam: STONES Small calcification superimpose both kidneys and could represent renal calculi. No bowel obstruction or free air. No sign of organ enlargement. Nonspecific pelvic calcifications. Unremarkable regional b aurelia elements. XR/XR KUB [id number] IMPRESSION: 1. No acute abdominal process. 2. Small calcification superimpose the renal silhouettes and likely represent k nown renal stones.
== END 2021-12-01 10:02 | disposition home or self-care (01) ==
LOC: RAD 10:01
PROVIDERS: PCP Nurse Practitioner Family; Visit Provider Urology
DX: N20.0 Calculus of kidney (principal)
CPT/HCPCS: 74018

== ENCOUNTER 2022-01-01 10:10 | Outpatient (CLI) | payer MEDICAID, SELFPAY ==
--- NOTE | 2022-01-01 10:20 | XR_ITS ---
WS: [id number] Exam: XR KUB [id number] Date/Time of Exam: 01/01/2022 10:20 AM Reason For Exam: Urolithiasis No bowel obstruction or free air. Small calcifications superimpose both kidneys apparently representi ng known renal stones. No sign of organ enlargement. Regional bony elements are intact. XR/XR KUB [id number] IMPRESSION: 1. No acute abdominal process. 2. Small calcifications superimpose both kidneys and apparently represent known bilateral renal stones.
== END 2022-01-01 10:11 | disposition home or self-care (01) ==
LOC: RAD 10:12
PROVIDERS: PCP Nurse Practitioner Family; Visit Provider Urology
DX: N20.9 Urinary calculus, unspecified (principal)
CPT/HCPCS: 74018

== ENCOUNTER 2022-01-04 05:25 | Day surgery (SDC) | payer MEDICAID, SELFPAY ==
[2022-01-01 15:24] VITALS: BMI 38.9
[2022-01-04] VITALS (13 sets, daily range): BP systolic 114–147; BP diastolic 81–93; PULSE 68–99; RESP 15–21; TEMP 36.3–36.8; O2SAT 93–100
--- NOTE | 2022-01-04 | SCC_ITS ---
Procedure done: 1. Cystoscopy, RIGHT: Retrograde ureteropyelogram 2. Right: Ureteroscopy, laser, stent 29.3 seconds of fluoroscopic guidance, for a cumulative dose of 9.66 mGy, was provided to Dr. Farmer by the radiology department. C-arm images of the abdomen were saved for the patient's permanent record. [facility]
--- NOTE | 2022-01-04 05:30 | XRR_ITS ---
PROCEDURE INFORMATION: Exam: XR Abdomen Exam date and time: 01/04/2022 5:36 AM Age: 31 years old Clinical indication: Abdominal pain; Flank; Right; Additional info: Right distal ureteral stones TECHNIQUE: Imaging protocol: Radiologic exam of the abdomen. Views: Frontal supine view of the abdomen. 1 View. COMPARISON: CR XR KUB [id number] 01/01/2022 10:22 AM FINDINGS: Gastrointestinal tract: Moderate stool is present within the colon. Bones/joints: Unremarkable. XR/XR KUB [id number] IMPRESSION: 1. There are no acute abdominal findings. 2. Moderate stool present within the colon.
--- NOTE | 2022-01-04 05:30 | SC_ITS ---
WS: [id number] C-arm fluoroscopy for right ureteral stent placement, 01/04/2022 Clinical Data: Right ureteroscopy Comparison: KUB, 01/04/2022 Findings: Dr. Farmer placed a right ureteral stent. SC/C-arm FL for Urology Impression: Insertion right ureteral stent.
--- NOTE | 2022-01-04 06:00 | P.HPUD_ITS ---
Surgery/Procedure H&P Update DATE OF PROCEDURE: January 04, 2022 DATE H&P PERFORMED: 01/01/22 H&P UPDATE INFORMATION: I have reviewed H&P completed within last 30 days, I have examined patient prior to procedure, Changes to prior documentation as noted here and H&P is in [facility] EMR on date indicated PREOP DIAGNOSIS: Refractory right distal ureteral stones PLANNED PROCEDURE: Operation Date: 01/04/22 07:00 Proposed Procedures p CYSTOSCOPY RIGHT RETROGRADE URETEROSCOPY LASER STENT [address] [place] [address]248 72815,N20.1(Not Applicable) - Momo Farmer MD s Retrograde Pyelogram(Right) - MD itzel Hernandez Ureteroscopy(Right) - MD itzel Hernandez Laser Lithotripsy(Right) - MD itzel Hernandez Ureteral Stent Placement(Right) - Momo Farmer MD
[2022-01-04] MEDS: sodium chloride 0.9% 1,000 ML 30 ML IV (06:16)
--- NOTE | 2022-01-04 07:02 | ANES.PREANE2 ---
Pre-Anesthetic Assessment Height/Weight: Height 1.6 m Weight 99.79 kg Temp Pulse Resp BP Pulse Ox O2 Del Method 97.3 F L 99 17 137/93 96 01/04/22 05:52 01/04/22 05:52 01/04/22 05:52 01/04/22 05:52 01/04/22 05:52 01/04/22 05:58 Preop Diagnosis: Refractory right distal ureteral stones Operation Date: 01/04/22 07:00 Proposed Procedures p CYSTOSCOPY RIGHT RETROGRADE URETEROSCOPY LASER STENT [address] [address] 68143 38943,N20.1(Not Applicable) - Momo Farmer MD s Retrograde Pyelogram(Right) - MD itzel Hernandez Ureteroscopy(Right) - MD itzel Hernandez Laser Lithotripsy(Right) - MD itzel Hernandez Ureteral Stent Placement(Right) - Momo Farmer MD Familial anesthetic complications: None Was Beta Dawn taken within 24 hours: N/A Was Clonidine taken within 24 hours: N/A Last intake: Intake Last Liquid Date 01/03/22 Last Liquid Time 21:00 Last Solid Date 01/03/22 Last Solid Time 17:30 Social Alcohol (social) and Tobacco Exam alert, oriented x 3, clear to auscultation bilaterally and regular rate & rhythm Airway Mallampati: Class III Dentition: full Pulmonary Asthma CV/HEM Anemia (menorrhagia) and Hypertension Chronic Renal Insufficiency (hx preeclampsia) Metabolic Morbid Obesity and Thyroid Disease Anesthetic Plan ASA status: 3 Anesthesia: General Risk of > 500 ml blood loss (7ml/kg in children): No Medications/Allergies Home Medications Medication Instructions Recorded Confirmed Last Taken Type simvastatin 20 mg tablet 20 mg PO .QHS 30 days #30 tabs 07/29/21 01/04/22 01/03/22 21:00 Rx norgestimate 0.25 mg-ethinyl 1 tab PO DAILY #84 tabs 10/14/21 01/04/22 01/03/22 08:00 Rx estradiol 35 mcg tablet (Sprintec (28)) ondansetron 4 mg disintegrating 4 mg PO Q8H PRN nausea and 10/14/21 01/01/22 Unknown Rx tablet vomiting #15 tabs levothyroxine 125 mcg tablet 125 mcg PO DAILY #30 tabs 1001/04/22 01/04/22 04:30 Rx (Synthroid) cetirizine 10 mg tablet (Zyrtec) 10 mg PO DAILY 90 days #90 tabs 12/21/21 01/04/22 01/03/22 08:00 Rx oxycodone-acetaminophen 5 mg-325 1 tab PO Q6H PRN painful procedure 01/01/22 01/04/22 01/02/22 Rx mg tablet (Percocet) 5 days #20 tabs Allergies Allergy/AdvReac Type Severity Reaction Status Date / Time ibuprofen Allergy Unknown Verified 01/04/22 05:56 propoxyphene Allergy ALGY-Hives Verified 01/04/22 05:56 [From Darvocet-N 100] acetaminophen AdvReac ALGY-Hives Verified 01/04/22 05:56 [From Darvocet-N 100] Current Medications Generic Name Dose Route Start Last Admin Trade Name Freq PRN Reason Stop Dose Admin Sodium Chloride 1,000 mls @ 30 mls/hr 01/04/22 05:45 01/04/22 06:16 Sodium Chloride 0.9% IV 01/05/22 05:44 30 mls/hr .Q24H PREMA Administration PFSH Anesthesia Medical History Anemia, unspecified Bleeding hemorrhoid Chronic kidney disease, stage 3 (moderate) Congenital hypothyroidism Essential (primary) hypertension Generalized anxiety disorder Major depressive disorder, recurrent episode, moderate with anxious distress Panic disorder without agoraphobia Polycystic ovarian syndrome Urolithiasis Vitamin D deficiency Surgical History Hx of section (~2012) Hx of hernia repair x 3 Hx of tubal ligation (~2012) Family History Father , 2004 JEFFREY (obstructive sleep apnea) Alcohol abuse drug abuse Mother Lung disease COPD Alcohol abuse JEFFREY (obstructive sleep apnea) Heart disease Stomach cancer metastasis Family/Other Stroke Thyroid condition maternal aunt Breast cancer maternal aunt, early 30's Grandfather Clotting disorder maternal Stroke maternal Brother Hyperlipidemia Denies family history of Colon cancer Ovarian cancer Diabetes Anesthesia complication Bleeding disorder Hypertension Uterine cancer Social History Smoking and tobacco status: never smoked Alcohol intake: current Alcohol intake frequency: few times a month Marital status: Life Partner Current occupational status: student History of recent travel: No Current gender identity: Female Female Reproductive History Date of last menstrual period: 12/19/21 Data Anesthesia Cardiac Studies: No Data to Display
--- NOTE | 2022-01-04 07:03 | P.OP_ITS ---
Operative Report Date of procedure: January 04, 2022 Pre-op diagnosis: Refractory right distal ureteral stones Post-op diagnosis: Refractory right distal ureteral stones Procedure done: 1. Cystoscopy, RIGHT: Retrograde ureteropyelogram 2. Right: Ureteroscopy, laser, stent Implants: Right ureteral stent: 6 Italian by 24 cm double-pigtail without string Specimens removed/disposition: Stone fragments Pathology: Stone fragments Surgeon: Marleny Estimated blood loss: Minimal Urine output: Not measured Complications: None Findings: Anesthesia: General Condition: Stable Disposition: PACU Intraoperative findings: * Stone in the expected position, fragmented with laser and fragments removed mostly via flushing but also with some basketing * Cannot readily identify a second stone and the scope was passed all the way up into the proximal ureter. It may be that the second stone if still there was bunched together with the more distal stone and difficult to delineate once fragmentation began. * Ureteral stent left indwelling. 6 Italian by 24 cm double-pigtail, no string Brief History: Katia is a very pleasant 31-year-old white female recently diagnosed with 2 stones in the right distal ureter causing obstruction. She initially elected conservative management with hopes of spontaneous passage but despite a reasonable conservative timeframe she failed to pass the stones and was admitted today to Outpatient Surgery for endoscopic treatment of the stones. Procedure: After routine preoperative evaluation examination and obtaining of informed consent she was taken to the operating suite on 01/04/2022 where general anesthesia was administered without difficulty after appropriate timeout was performed, SCDs confirmed to be functioning, preoperative antibiotics administered, beta-tristen protocol confirmed. Prepped and draped in usual sterile fashion in dorsolithotomy position paying careful attention to avoiding pressure points. 21 Italian cystoscope with 30 degree lens was introduced into urethra meatus and advanced into the bladder under videoscopy. Bladder was systematically examined. No stones were seen. The right ureteral orifice demonstrated some intramural inflammatory changes. An 8 Italian cone-tip catheter was intubated into the right ureteral orifice for right retrograde pyelogram demonstrating: Flexible tip guidewire was then advanced up the right ureter bypassing the s tones. A 7 Italian offset semirigid ureteroscope was advanced into the most distal aspect of the right ureter but could not be advanced all the way to the stone and therefore a second guidewire was then passed up the scope which facilitated easy passage to where the stone were encountered in expected position and fragmented with a 365 ?m thulium superpulse laser fiber into small enough fragments that were removed. Final inspection did show some significant inflammatory changes and for that reason it was decided to leave a stent indwelling. Cystoscope was then backloaded over the guidewire and a 6 Italian by 24 cm double-pigtail stent was passed over the guidewire through the cystoscope into appropriate position as confirmed via fluoroscopy and cystoscopy. The bladder was drained and the procedure was completed. Specimens which had been washed from the bladder were sent for pathologic evaluation. She tolerated the procedure well without complications and was awakened in the operating room and returned to PACU in stable condition. PLANS: 1. Anticipate discharge from outpatient surgery 2. Follow-up late this week for cystoscopy and stent removal in clinic.
[2022-01-04] MEDS: levofloxacin-dextrose 5 % 500 MG/100 ML PREMIX 100 MG IV (07:04)
[2022-01-04 07:17] LABS: OR HCG Qualitative Urine Negative (Negative)
[2022-01-04] MEDS: iohexol 300 mg/mL 50 mL Btl (OR ONLY) XX (07:34)
--- NOTE | 2022-01-04 08:06 | SUR.PHASEI ---
0800 PT TO PACU AWAKES TO VOICE, PT DENIES PAIN AND NAUSEA, C/O OF COLD WARM BLANKETS X 2 TO PT PT COUGHS TO COMMAND, MONITOR SR WITH NO ECTOPY, IV TO RT HAND NS 400ML UP AT KVO RATE PER GRAVITY, ID BAND TO LT HAND PT ID'D WITH 2 IDENTIFIERS, ABDOMEN SOFT AND BILAT SCDS ON , PT QUICKLY BACK TO SLEEP, DENIES PAIN. 0810 PT ON RA TRIAL, PT REQUEST BEDPAN, FEELS URGENCY, PT GIVEN INFO ON PROCEDURE AND STENT PLACEMENT IN OR. PT GIVEN BED SEPULVEDA, PT DENIES PAIN , VSS.
--- NOTE | 2022-01-04 08:07 | P.PCN_ITS ---
PACU note Narrative: VSS, Good respiratory effort, report to BUNG SEWER Exam: awake
--- NOTE | 2022-01-04 08:07 | PM.PACU ---
PACU note Narrative: VSS, Good respiratory effort, report to PARAFFINER Exam: awake
[2022-01-04] MEDS: fentaNYL 50 mcg/mL INJ 2mL IVP (08:27)
--- NOTE | 2022-01-04 08:31 | SUR.PHASEI ---
0825 PT AWAKES AND LEV OUT RATES HUYEN AREA/LOWER ABDOMEN PAIN OF 8/10 FROM PROCEDURE, SEE PAIN MED GIVEN.
--- NOTE | 2022-01-04 08:35 | SUR.PHASEI ---
0835 PT AWAKES EASILY, GOOD RESP EFFORT TAKING ICE CHIPS PT STATES PAIN IS BETTER BUT NOT GONE, PT OK WITH TAKING PO PAIN MEDS IN OPS AREA.
[2022-01-04] MEDS: HYDROcodone-acetaminophen 5-325 mg Tablet 1 TAB PO (09:22)
--- NOTE | 2022-01-04 13:52 | ANE.PACU2 ---
Inpatient post-anesthesia follow up: Airway intact: Yes Vital signs: Temperature 98.3 F Pulse Rate 76 Respiratory Rate 17 Blood Pressure 130/81 Pulse Oximetry 96 Oxygen Delivery Me thod Room Air Oxygen Flow Rate 8 Fraction of Inspir ed Oxygen Hydration adequate: Yes Nausea and vomiting: No Pain level: 1 Mental status: Baseline
[2022-01-08 22:32] LABS: Stone Source RIGHT URETER
== END 2022-01-04 09:34 | disposition home or self-care (01) ==
PROVIDERS: Anesthesiology; PCP Nurse Practitioner Family; Visit Provider Urology
PROC: 0TJB8ZZ Inspection of Bladder, Via Natural or Artificial Opening Endoscopic (ICD-10-PCS; CPT 52000; principal; 2022-01-04 07:00)
PROC: (CPT 74420; 2022-01-04 07:00)
PROC: 0TJ98ZZ Inspection of Ureter, Via Natural or Artificial Opening Endoscopic (ICD-10-PCS; CPT 52351; 2022-01-04 07:00)
PROC: (CPT 52356; 2022-01-04 07:00)
PROC: (CPT 50605; 2022-01-04 07:00)
DX: N20.1 Calculus of ureter (principal); I10 Essential (primary) hypertension; E66.01 Morbid (severe) obesity due to excess calories; Z68.39 Body mass index [BMI] 39.0-39.9, adult; E03.9 Hypothyroidism, unspecified; E28.2 Polycystic ovarian syndrome
CPT/HCPCS: 52356; 74018; 76000; 81025; 82365; 84703; 88300; C2625; J1100; J1956; J2405; J2704; J2710; J3010; J3490; J7030

== ENCOUNTER → 2022-01-08 10:49 | Outpatient (BNVA) | payer MEDICAID, SELFPAY | PROVIDERS: PCP Nurse Practitioner Family; Visit Provider Urology | DX: N20.1 Calculus of ureter (principal); Z96.0 Presence of urogenital implants | CPT/HCPCS: 52310; 81003 ==

== ENCOUNTER → 2022-02-09 09:20 | Outpatient (BNVA) | payer MEDICAID, SELFPAY | PROVIDERS: PCP Nurse Practitioner Family; Visit Provider Obstetrics & Gynecology | DX: Z01.419 Encounter for gynecological examination (general) (routine) without abnormal findings (principal) | CPT/HCPCS: 87625; 88175 ==

== ENCOUNTER → 2022-04-08 16:39 | Outpatient (BNVA) | payer MEDICAID, SELFPAY | PROVIDERS: PCP Nurse Practitioner Family; Visit Provider Nurse Practitioner Family | DX: M54.50 Low back pain, unspecified (principal); E55.9 Vitamin D deficiency, unspecified; E78.00 Pure hypercholesterolemia, unspecified; E03.1 Congenital hypothyroidism without goiter; M25.551 Pain in right hip; M54.6 Pain in thoracic spine | CPT/HCPCS: 80053; 80061; 82306; 83721; 84443; 85025 ==

== ENCOUNTER 2022-04-14 07:42 | Day surgery (SDC) | payer MEDICAID, SELFPAY ==
[2022-04-13 13:06] VITALS: BMI 40.7
[2022-04-13 13:18] LABS: OR HCG Qualitative Urine Negative (Negative)
--- NOTE | 2022-04-13 13:25 | ANES.PREANE2 ---
Pre-Anesthetic Assessment Height/Weight: Height 1.6 m Weight 104.326 kg Preop Diagnosis: Refractory right distal ureteral stones Operation Date: 04/14/22 09:00 Proposed Procedures p Endometrial ablation with hysteroscopy with Novasure 56664,N93.9(Not Applicable) - Juarez Burleson MD s Hysteroscopy w/ Myosure(Not Applicable) - Juarez Burleson MD Familial anesthetic complications: none Social Tobacco and No alcohol Exam alert, oriented x 3, clear to auscultation bilaterally and regular rate & rhythm Airway Mallampati: Class III Dentition: other (missing) Pulmonary None reported CV/HEM Hypertension Chronic Renal Insufficiency (from hx of preeclampsia) GI Gastroesophageal Reflux Disease Metabolic Hyperlipidemia, Morbid Obesity and Thyroid Disease Musc/skel Osteoarthritis/DJD Neuropsych None reported Anesthetic Plan ASA status: 3 Anesthesia: General Risk of > 500 ml blood loss (7ml/kg in children): No Medications/Allergies Home Medications Medication Instructions Recorded Confirmed Last Taken Type simvastatin 20 mg tablet 20 mg PO .QHS 30 days #30 tabs 07/29/21 04/13/22 04/07/22 Rx cetirizine 10 mg tablet (Zyrtec) 10 mg PO DAILY 90 days #90 tabs 12/21/21 04/13/22 04/11/22 Rx fluoxetine 10 mg capsule (Prozac) 10 mg PO DAILY 02/09/22 04/13/22 04/12/22 History lamotrigine 25 mg tablet (Lamictal) 25 mg PO DAILY 02/09/22 04/13/22 04/12/22 History propranolol 10 mg tablet 10 mg PO DAILY PRN Anxiety 02/09/22 04/13/22 04/12/22 History Synthroid 125 mcg tablet 125 mcg PO DAILY #30 tabs 04/08/22 04/13/22 04/13/22 Rx (levothyroxine) cyclobenzaprine 10 mg tablet 10 mg PO TID PRN muscle spasm #30 04/08/22 04/13/22 04/12/22 Rx tabs Allergies Allergy/AdvReac Type Severity Reaction Status Date / Time ibuprofen Allergy Unknown Verified 04/13/22 13:03 propoxyphene Allergy ALGY-Hives Verified 04/13/22 13:03 [From Preethi-N 100] [facility] Anesthesia Medical History Anemia, unspecified Bleeding hemorrhoid Chronic kidney disease, stage 3 (moderate) Congenital hypothyroidism Essential (primary) hypertension Generalized anxiety disorder Major depressive disorder, recurrent episode, moderate with anxious distress Panic disorder without agoraphobia Polycystic ovarian syndrome Urolithiasis Vitamin D deficiency Surgical History Hx of section (~2012) Hx of hernia repair x 3 Hx of tubal ligation (~2012) Family History Father , 2003 JEFFREY (obstructive sleep apnea) Alcohol abuse drug abuse Mother Lung disease COPD Alcohol abuse JEFFREY (obstructive sleep apnea) Heart disease Stomach cancer metastasis Family/Other Stroke Thyroid condition maternal aunt Breast cancer maternal aunt, early 30's Grandfather Clotting disorder maternal Stroke maternal Brother Hyperlipidemia Denies family history of Colon cancer Ovarian cancer Diabetes Anesthesia complication Bleeding disorder Hypertension Uterine cancer Social History Smoking and tobacco status: current every day smoker e-cigarettes E-Cigarette Details: with nicotine Alcohol intake: current Alcohol intake frequency: few times a month Marital status: Life Partner Current occupational status: student History of recent travel: No Current gender identity: Female Female Reproductive History Date of last menstrual period: 12/19/21 Data Anesthesia Cardiac Studies: No Data to Display
[2022-04-13 14:11] LABS: Urine Appearance Clear (CLEAR); Urine Color Yellow (Yellow); pH Urine 6.5 (5-7)
[2022-04-13 14:12] LABS: Add Urine Microscopic? YES; Bilirubin Urine Neg (Negative); Blood Urine Neg (Negative); Glucose Urine UA Norm (Normal); Ketones Urine Negative (Negative); Leukocyte Esterase Urine 2+ (Negative); Nitrate Urine Negative (Negative); Protein Urine Neg (Negative); Urobilinogen Urine Norm (Negative)
[2022-04-13 14:13] LABS: Add Urine Culture? No; Bacteria Urine 1+ /hpf; Mucus Urine TRACE /hpf; RBC Urine 0-4 /hpf (0-2)
[2022-04-14] VITALS (12 sets, daily range): BP systolic 128–158; BP diastolic 72–90; PULSE 89–102; RESP 16–20; TEMP 36.1–36.7; O2SAT 95–99
[2022-04-14] MEDS: scopolamine 1.5 Patch 1 PATCH TRANSDERMA (08:16)
[2022-04-14] MEDS: sodium chloride 0.9% 1,000 ML 30 ML IV (08:17)
--- NOTE | 2022-04-14 08:17 | P.ANESUD_ITS ---
Pre-Anesthetic Update Pre-Anesthetic Assessment: Date of Surgery/Procedure: 04/14/22 Preop Maria Guadalupe gnosis: Menorrhagia Proposed Procedure: Operation Date: 04/14/22 09:00 Proposed Procedures p Endometrial ablation with hysteroscopy with Novasure 86931,N93.9(Not Applicable) - Juarez Burleson MD s Hysteroscopy w/ Myosure(Not Applicable) - Juarez Burleson MD Any changes to Pre-Anesthetic Assessment?: No Last Intake: Intake Last Liquid Date 04/13/22 Last Liquid Time 20:00 Last Solid Date 04/13/22 Last Solid Time 20:00 Labs Last 48hrs: Urine 04/13/22 Range/Units 12:59 Urine Color Yellow (Yellow) Urine Appearance Clear (CLEAR) Urine pH 6.5 (5-7) Ur Specific Gravit y 1.010 (1.005-1.030) Urine Protein Neg (Negative) Urine Glucose (UA) Norm (Normal) Urine Ketones Negative (Negative) Urine Nitrate Negative (Negative) Urine Bilirubin Neg (Negative) Ur Leukocyte Blanca ase 2+ H (Negative) Urine RBC 0-4 H (0-2) /hpf Urine WBC 10-15 H (0-5) /hpf Blood Bank 04/13/22 13:20 Blood Type O Positive Rho(D) Type Positive Antibody Screen Negative Vitals: Temperature 97 F L 04/14/22 07:50 Temperature Source Temporal Artery S can 04/14/22 07:50 Pulse Rate 89 04/14/22 07:50 Respiratory Rate 16 04/14/22 07:50 Blood Pressure 154/89 04/14/22 07:50 Blood Pressure Aleyda n 110 04/14/22 07:50 Pulse Oximetry 99 04/14/22 07:50 Oxygen Delivery Me thod 04/14/22 07:50 Exam: Pre-Anes Outpt Exam: alert, oriented x 3, clear to auscultation bilaterally and regular rate & rhythm Cardiac Studies: No Data to Display
--- NOTE | 2022-04-14 08:58 | W.PM.OPSUD ---
Surgery/Procedure H&P Update DATE OF PROCEDURE: April 14, 2022 DATE H&P PERFORMED: 04/13/22 H&P UPDATE INFORMATION: I have reviewed H&P completed within last 30 days, I have examined patient prior to procedure and No changes to prior documentation PREOP DIAGNOSIS: Menorrhagia PLANNED PROCEDURE: Operation Date: 04/14/22 09:00 Proposed Procedures p Endometrial ablation with hysteroscopy with Novasure 93084,N93.9(Not Applicable) - Juarez Burleson MD s Hysteroscopy w/ Myosure(Not Applicable) - Juarez Burleson MD
[2022-04-14] MEDS: ceFAZolin 2,000 MG in sodium chloride 0.9% (plus) 50 ML 100 MG IV (09:00)
[2022-04-14] MEDS: lidocaine-epi 2% PF 1:200,000 20 mL SDV 10 ML XX (09:45)
--- NOTE | 2022-04-14 09:58 | P.OP_ITS ---
Operative Report Date of procedure: April 14, 2022 Pre-op diagnosis: Preop Diagnosis Menorrhagia Post-op diagnosis: Same as above Procedure done: Hysteroscopy with D&C via MyoSure. Hysteroscopic endometrial ablation via NovaSure Specimens removed/disposition: Endometrial curette Surgeon: Juarez Burleson MD Estimated blood loss (mL): 10 IV fluids (mL): 500 Brief History: Ms. Dasilva is a 31 year-old female who presented to the office for abnormal uterine bleeding. Ultrasound imaging did not reveal any submucosal fibroids or polyps. Conservative therapies including TXA, OCP, and Mirena were discussed/tried. Ultimately, a plan was made to proceed with a novosure endometrial ablation. Risks, potential complications, and benefits were discussed with Ms. Dasilva and consent was signed prior to the OR. Procedure: This is a 31-year-old patient who has completed childbearing; and she has a tubal ligation. The patient desired control for abnormal uterine bleeding. She declined other more conservative options such as oral contraceptive pills and Mirena intrauterine device. The patient desired an ablation. Risks of the surgery, which include risk of infection, bleeding, urine perforation; were discussed in detail with the patient. Patient was also informed that is not advised after having an ablation procedure done. Patient verbalized understanding of the risks, and informed consent was obtained. The patient was taken to the operating room where general anesthesia was administered. The patient was examined under anesthesia and found to have a normal uterus with normal adnexa. She was placed in the dorsal lithotomy position and prepped and draped in sterile fashion. A speculum was placed in the vagina, and the anterior lip of cervix was grasped with the single toothed tenaculum. After informed consent, the risks included but were not limited to bleeding, infection, injury to internal organs. The patient was counseled on a possible laparotomy and on the potential need for hysterectomy. The patient expressed understanding of the risks involved, all questions were answered, and the patient consented to the procedure. The patient was taken to the operating room where general anesthesia was administered. She was placed in the dorsal lithotomy position and prepped and draped in sterile fashion. A time out procedure was performed. The patient was examined under anesthesia and found to have a normal uterus with normal adnexa. A sterile weight speculum was placed in the vagina. The uterus was then gently sounded to 9 cm, and the cervix was dilated. The 0 degrees MyoSure hysteroscope was advanced gently to the uterine fundus while visualizing the monitor. Survey of the uterine cavity showed: Proliferative endometrium, the fundus shows normal proliferative endometrium; left ostium was visualized, and lateral wall with proliferative endometrium; right ostium visualized, and lateral wall with proliferative endometrium; anterior and posterior montoya are with proliferative endometrium; endocervical canal is normal. The MyoSure device was advanced and the direct visualization the endometrium was morcellated without complication. At the end of morcellation the fluid deficit was 170 mL and was estimated at approximately 100 mL were on the floor. There was minimal bleeding noted and the tenaculum removed with goad hemostasis noted. then proceeded to perform the endometrial ablation. The uterus was then gently sounded to 9 cm. The length of the cervical canal was 2.5 cm and the canal was dilated to 8 mm with Otilia?s dialators. and the 2.7 cm hysteroscope advanced gently to the uterine fundus while visualizing the monitor. Survey of the uterine cavity showed: fundus normal proliferative endometrium; left and right ostiums visualized, anterior wall with proliferative endometrium; and posterior wall with proliferative endometrium; the endocervical canal is normal. No intrauterine lesions noted. The hysteroscope was removed. A curette was advanced gently to the uterine fundus and rotated to clear the uterus. A sharp curettage wan then performed until a gritty texture was noted. There was minimal bleeding noted. The sterile NovaSure? Disposable Device package was opened, connected and tested per instructions. It was found to be working properly. The device?s array is completely enclosed by the external sheath and the WIDTH dial reads approximately 0.5 cm. The appropriate cavity length settings was set 6.5 cm. Adjust and lock the cavity length setting feature on the Disposable Device to the value obtained. The Cervical Collar was fully retracted to its proximal position. Confirmed that the cervix was dilated to 8.0 mm. While maintaining a slight traction on the tenaculum to minimize the angle of the uterus. In-line with the axis of the uterus the Disposable Device was inserted transcervically into the uterine cavity and advance the device until the distal end of the sheath touched the fundus. The handles were slowly squeezed up to the point of increased resistance without locking it. The WIDTH dial read 3.5 cm. The Disposable Device handles were slowly squeezed together while gently moving the Disposable Device -0.5 cm to and from the fundus and rotating the handle of the Disposable Device 45? counterclockwise from the vertical plane and 45? clockwise from the vertical plane until the handles locked and confirmed the with dial read greater than 2.5 cm. The Disposable Device was gently moved using anterior, posterior and lateral movements. The Disposable Device was slightly pulled back until the WIDTH dial reading reduced by approximately 0.2-0.5 cm. While holding the tenaculum, the Disposable Device was advance to the fundus, maintaining slight forward pressure. The WIDTH dial read to the previous measurement. The Cervical Collar was slide forward until it forms a seal against the external cervical os. The value indicated on the width dial into the Kelly Van Gogh Hair Colour? RF Controller. In Automatic Mode the Cavity Integrity Assessment (DAVINA) procedure by stepping on the foot switch once was began. The cavity integrity assessment LED signaled the test has passed. The ablation cycle started was after the successful completion of the Cavity Integrity Assessment test. Termination of the ablation was automatic at 58 seconds at 125 alvarado power. The Cervical Collar was slide it to its proximal position. The Disposable Device was unlock, holding the front plastics scientist stationary and pulling the rear handles backwards until the Closed Array indicator reads closed the Disposable Device was withdrawn from the uterine cavity. A hysteroscopy was performed post ablation to confirm therapy it was noted that endometrial cavity had been thoroughly ablated. Prior to this, a sharp curettage was performed, and endometrial curettings were also collected. The hysteroscope and the tenaculum were removed with goad hemostasis noted. The patient tolerated the procedure well. The patient was taken to the recovery area in stable condition.
[2022-04-14] MEDS: HYDROmorphone 1 mg/mL INJ 1 mL 0.5 MG IVP (10:27)
[2022-04-14] MEDS: HYDROcodone-acetaminophen 5-325 mg Tablet 1 TAB PO (11:08)
--- NOTE | 2022-04-14 13:45 | ANE.PACU2 ---
Inpatient post-anesthesia follow up: Airway intact: Yes Vital signs: Temperature 98.1 F Pulse Rate 98 Respiratory Rate 16 Blood Pressure 132/73 Pulse Oximetry 97 Oxygen Delivery Me thod Room Air Oxygen Flow Rate 6 Fraction of Inspir ed Oxygen Hydration adequate: Yes Nausea and vomiting: No Pain level: 1 Mental status: Baseline
== END 2022-04-14 11:20 | disposition home or self-care (01) ==
PROVIDERS: PCP Nurse Practitioner Family; Visit Provider Obstetrics & Gynecology
PROC: (CPT 58999; principal; 2022-04-14 09:00)
PROC: 0UDB8ZZ Extraction of Endometrium, Via Natural or Artificial Opening Endoscopic (ICD-10-PCS; CPT 58558; 2022-04-14 09:00)
DX: N92.0 Excessive and frequent menstruation with regular cycle (principal); K21.9 Gastro-esophageal reflux disease without esophagitis; E78.5 Hyperlipidemia, unspecified; E66.01 Morbid (severe) obesity due to excess calories; Z68.41 Body mass index [BMI] 40.0-44.9, adult; I12.9 Hypertensive chronic kidney disease with stage 1 through stage 4 chronic kidney disease, or unspecified chronic kidney disease; N18.9 Chronic kidney disease, unspecified; F17.290 Nicotine dependence, other tobacco product, uncomplicated
CPT/HCPCS: 58558; 36415; 81001; 84703; 86850; 86900; 88305; J0131; J0690; J1100; J1170; J2405; J2704; J3010; J7030

== ENCOUNTER 2022-05-05 12:10 | Emergency (ER) | payer MEDICAID, SELFPAY ==
[2022-05-05] VITALS (7 sets, daily range): BP systolic 109–134; BP diastolic 68–101; PULSE 74–91; RESP 15–20; TEMP 36.5; O2SAT 95–97; BMI 38.9
--- NOTE | 2022-05-05 12:23 | ECG_ITS ---
Test Date: 2022-05-05 Pat Name: Katia Dasilva Department: Room: Gender: Female Mercantile Reporter: : 1990 Requested By: Christoph Peace Order Number: [id number] Sue MD: Hector Kong M.D. Measurements Intervals [place] Rate: 81 P: 63 CA: 139 QRS: 71 QRSD: 98 T: 77 QT: 332 QTc: 386 Interpretive Statements SINUS RHYTHM WITH SINUS ARRHYTHMIA Compared to ECG 05/04/2015 15:30:09 No significant changes Electronically Signed On 05-05-2022 16:12:13 RECORDS OFFICER by Hector Kong M.D. [email or web address], [id number]
--- NOTE | 2022-05-05 12:58 | W.ED.CHESTPA ---
HPI - Chest Pain General: Chief Complaint: Chest Pain Stated Complaint: chest pain Time Seen by Provider: 05/05/22 12:58 History of Present Illness: Ms Dasilva is a 31-year-old lady with significant past medical history of hypertension, hyperlipidemia, tobaccoism presenting to the emergency department for chest pain. She reports onset of symptoms during rest approximately 3 days ago and has had intermittent symptoms since that time. She endorses sharp aching substernal chest pain associated with nausea and shortness of breath. Symptoms are worse with inspiration. Does not appear to be provoked otherwise by certain activities. No other specific changes in health, exacerbating, or alleviating factors identified. Onset (ago): day(s) Timing of current episode: episodic Prior episodes: No Onset: during rest Pain location: substernal Severity: moderate Quality: tightness and sharp Relieving factors: nothing Exacerbating factors: inspiration and other Context: recent surgery Associated symptoms: Reports diaphoresis and dyspnea Review of Systems General: Reports: 10 or more systems reviewed and unremarkable except in HPI and below Const: Reports: diaphoresis Resp: Reports: dyspnea PFSH ED PFSH: Medical History Anemia, unspecified Bleeding hemorrhoid Chronic kidney disease, stage 3 (moderate) Congenital hypothyroidism Essential (primary) hypertension Generalized anxiety disorder H/O hemorrhoids anal fissure repair and hemorrhoidectomy repair Major depressive disorder, recurrent episode, moderate with anxious distress Panic disorder without agoraphobia Polycystic ovarian syndrome Urolithiasis Vitamin D deficiency Surgical History History of hysteroscopy (04/14/22) Hysteroscopy, D&C via MyoSure and Hysteroscopic endometrial ablation via NovaSure. Performed for menorrhagia by Dr. Burleson. History of urethral stent History of wisdom tooth extraction Hx of section (~2012) Hx of hernia repair x 3 Hx of tubal ligation (~2012) Family History Father , 2003 JEFFREY (obstructive sleep apnea) Alcohol abuse drug abuse Mother Lung disease COPD Alcohol abuse JEFFREY (obstructive sleep apnea) Heart disease Stomach cancer metastasis Family/Other Stroke Thyroid condition maternal aunt Breast cancer maternal aunt, early 30's Grandfather Clotting disorder maternal Stroke maternal Brother Hyperlipidemia Denies family history of Colon cancer Ovarian cancer Diabetes Anesthesia complication Bleeding disorder Hypertension Uterine cancer Social History Smoking and tobacco status: current every day smoker e-cigarettes E-Cigarette Details: with nicotine Alcohol intake: current Alcohol intake frequency: few times a month Marital status: Life Partner Current occupational status: student Current gender identity: Female Physical Exam Const: COMMON NORMALS: alert GENERAL APPEARANCE: cooperative and well developed HENMT: COMMON NORMALS: normocephalic and atraumatic HEAD & SCALP: normocephalic and atraumatic THROAT: posterior oropharynx normal Eye: COMMON NORMALS: conjunctivae normal CONJUNCTIVA: Yes conjunctivae normal SCLERA: sclerae normal Neck/C-Spine: COMMON NORMALS: supple GENERAL: Yes trachea midline Resp: COMMON NORMALS: normal respiratory effort and clear to auscultation bilaterally EFFORT & INSPECTION: Yes able to speak in complete sentences AUSCULTATION: clear to auscultation bilaterally Cardio: COMMON NORMALS: regular rate and regular rhythm RATE: regular rate RHYTHM: regular rhythm GI: COMMON NORMALS: Soft to palpation PALPATION: Yes Soft to palpation and No Tenderness to palpation present (GI) Extremity: GENERAL: Yes normal exam except as noted and No edema Neuro: COMMON NORMALS: moves all extremities SENSORIUM/ORIENTATION: Yes alert and No Orientation impaired Psych: COMMON NORMALS: mental status grossly normal and Normal thought process present THOUGHT PROCESS: Normal thought process present Course Vital Signs: Vital signs: Vital Signs Temperature 97.7 F 05/05/22 12:18 Pulse Rate 83 05/05/22 15:30 Respiratory Rate 16 05/05/22 15:30 Blood Pressure 134/69 05/05/22 15:30 Pulse Oximetry 95 05/05/22 15:30 Oxygen Delivery Me thod 05/05/22 12:18 MDM - Chest Pain Medical Decision Making 31-year-old lady presenting with chest pain that is pleuritic associated with nausea. EKG demonstrates sinus rhythm, normal axis and intervals, no STEMI. Labs with mild normocytic anemia, metabolic panel without clear explanation for symptoms. Negative troponin and D-dimer. No UTI. Chest x-ray with no lobar consolidation or pneumothorax. Patient treated with fluids, analgesia, aspirin, GI cocktail with improvement. Most likely etiology of patient's symptoms is unspecified chest pain. She is low risk by heart score. The results of ED evaluation were discussed with the patient including prescriptions and/or symptomatic cares (if applicable) including appropriate and responsible use, followup plan, and return precautions. The patient verbalized understanding and felt safe for discharge. Medical Records I reviewed the patient's medical records. Lab Data I reviewed the patient's lab results. 05/05/22 13:00 05/05/22 13:00 Radiology Impressions Chest X-Ray 05/05/22 13:04 IMPRESSION: No acute cardiopulmonary abnormality. Laboratory Results WBC 9.0 10^3/uL (4.0-10.0) 05/05/22 13:00 RBC 4.22 10^6/uL (4.1-5.3) 05/05/22 13:00 Hgb 11.0 g/dL (11.5-15.3) L 05/05/22 13:00 Hct 36.1 % (37.0-47.0) L 05/05/22 13:00 MCV 85.5 fl (81-99) 05/05/22 13:00 MCH 26.1 pg (28.0-34.0) L 05/05/22 13:00 MCHC 30.5 g/dL (30.0-36.0) 05/05/22 13:00 RDW 14.9 % (12.1-15.1) 05/05/22 13:00 Plt Count 348 10^3/cmm (130-400) 05/05/22 13:00 MPV 11.6 fL (7.4-10.4) H 05/05/22 13:00 Neut % (Auto) 59.8 % 05/05/22 13:00 Lymph % (Auto) 28.1 % 05/05/22 13:00 [place] % (Auto) 8.3 % 05/05/22 13:00 Eos % (Auto) 2.8 % 05/05/22 13:00 Baso % (Auto) 0.7 % 05/05/22 13:00 Neut # (Auto) 5.40 10^3/uL (1.8-7.7) 05/05/22 13:00 Lymph # (Auto) 2.5 10^3/uL (0.8-4.8) 05/05/22 13:00 [place] # (Auto) 0.8 10^3/uL (0.2-0.9) 05/05/22 13:00 Eos # (Auto) 0.3 10^3/uL (0.0-0.8) 05/05/22 13:00 Baso # (Auto) 0.1 10^3/uL (0.0-0.1) 05/05/22 13:00 Nucleated RBC % (auto) 0 % 05/05/22 13:00 Nucleated RBCs # 0.0 /100WBC 05/05/22 13:00 D-Dimer 0.32 ug/mIFEU (0-0.59) 05/05/22 13:40 Sodium 135 mmol/L (136-145) L 05/05/22 13:00 Potassium 4.0 mmol/L (3.5-5.1) 05/05/22 13:00 Chloride 100 mmol/L (98-107) 05/05/22 13:00 Carbon Dioxide 24 mmol/L (22-29) 05/05/22 13:00 Anion Gap 15.0 (5-19) 05/05/22 13:00 BUN 10 mg/dL (6-20) 05/05/22 13:00 Creatinine 1.0 mg/dL (0.5-0.9) H 05/05/22 13:00 GFR Calculation 64.7 mL/min (90-130) L 05/05/22 13:00 Glucose 84 mg/dL (65-115) 05/05/22 13:00 Calculated Osmolality 278 mOsm/kg (285-295) L 05/05/22 13:00 Calcium 9.5 mg/dL (8.5-10.5) 05/05/22 13:00 Total Bilirubin 0.2 mg/dL (0.15-1.2) 05/05/22 13:00 AST 14 U/L (0-32) 05/05/22 13:00 ALT 14 U/L (0-33) 05/05/22 13:00 Alkaline Phosphatase 106 U/L (35-105) H 05/05/22 13:00 Troponin T Baseline 6 ng/L (0-10) 05/05/22 13:00 Troponin T 120 Minute 6.00 ng/L (0-10) 05/05/22 15:00 Delta Troponin T 0 ABS# (0-10) 05/05/22 15:00 Total Protein 6.9 g/dL (6.6-8.7) 05/05/22 13:00 Albumin 3.8 g/dL (3.5-5.2) 05/05/22 13:00 Globulin 3.1 g/dL (1.3-4.6) 05/05/22 13:00 Lipase 25 U/L (13-60) 05/05/22 13:00 HCG, Qual Negative (Negative) 05/05/22 15:00 Urine Color Light yellow (Yellow) 05/05/22 15:00 Urine Appearance Clear (CLEAR) 05/05/22 15:00 Urine pH 6 (5-7) 05/05/22 15:00 Ur Specific [place] 1.015 (1.005-1.030) 05/05/22 15:00 Urine Protein Neg (Negative) 05/05/22 15:00 Urine Glucose (UA) Norm (Normal) 05/05/22 15:00 Urine Ketones Negative (Negative) 05/05/22 15:00 Urine Blood Trace (Negative) H 05/05/22 15:00 Urine Nitrate Negative (Negative) 05/05/22 15:00 Urine Bilirubin Neg (Negative) 05/05/22 15:00 Urine Urobilinogen Norm mg/dL (Negative) 05/05/22 15:00 Ur Leukocyte Esterase Negative (Negative) 05/05/22 15:00 Urine RBC Rare /hpf (0-2) 05/05/22 15:00 Urine WBC None /hpf (0-5) 05/05/22 15:00 Ur Squamous Epith Cells Rare /hpf (0-5) 05/05/22 15:00 Amorphous Sediment Not Reportable 05/05/22 15:00 Urine Bacteria None /hpf (NONE) 05/05/22 15:00 Discharge Plan Discharge Patient Disposition: Home Clinical Impression: Chest pain Condition: Stable Prescriptions: New Protonix 40 mg tablet,delayed release (DR/EC) 40 mg PO BID 14 Days Qty: 28 0RF No Action fexofenadine-pseudoephedrine [Salma-D 12 Hour] 60-120 mg tablet extended release 12 hr 1 tab PO Q12H PRN (Reason: allergy symptoms) Qty: 30 0RF propranolol 10 mg tablet 10 mg PO BID PRN (Reason: Anxiety) hydrocodone-acetaminophen 5-325 mg tablet 1 tab PO Q4H PRN (Reason: Pain) fluoxetine 20 mg capsule 20 mg PO BEDTIME lamotrigine 100 mg tablet 100 mg PO BEDTIME Centrum Silver Women 8 mg iron-400 mcg-300 mcg Tablet 1 tab PO QAM Synthroid 137 mcg tablet 137 mcg PO QAM Zyrtec 10 mg tablet 10 mg PO DAILY PRN (Reason: Allergy Symptoms) simvastatin 40 mg tablet 40 mg PO BEDTIME ergocalciferol (vitamin D2) 1,250 mcg (50,000 unit) capsule 1,250 mcg PO Q7D Rx Instructions: on tuesday Discharge Orders: Discharge ED (Routine); Ordered 05/05/22 Ordered By: Sam Gonzalez Referrals: Rosalva Mckeon FNP [Primary Care Provider] - Discharge Diet: Advance as tolerated and Clear Liquid Discharge Activity: Increase activity as tolerated Patient Instructions: Chest Pain (ED), Opioid Safety Activity Restrictions/Additional Instructions: Thank you for visiting the emergency department. You were seen and evaluated for chest pain. The exact cause of your symptoms is unclear though based on risk stratification for chest pain I do not believe that you require inpatient management at this time. Please follow-up with your primary care provider. Return to the emergency department for worsening symptoms, failure to improve, or anything else that you are concerned about and feel needs emergency department evaluation. Coding Level of Care Code ED Sports Psychologist for Ana Whitt
--- NOTE | 2022-05-05 13:04 | XRR_ITS ---
PROCEDURE INFORMATION: Exam: XR Chest Exam date and time: 05/05/2022 1:16 PM Age: 31 years old Clinical indication: Pain; Angina pectoris; Additional info: Cp TECHNIQUE: Imaging protocol: Radiologic exam of the chest. Views: 1 view. COMPARISON: CR XR ribs RT mn 3V w CXR1V [id number] 06/01/2021 10:28 AM FINDINGS: Tubes, catheters and devices: Overlying chest monitor leads are seen. Lungs: Unremarkable. No consolidation. Pleural spaces: Unremarkable. No pleural effusion. No pneumothorax. Heart/Mediastinum: Unremarkable. No cardiomegaly. Bones/joints: Unremarkable. Other findings: No significant change from prior exam. XR/XR chest 1V portable [id number] IMPRESSION: No acute cardiopulmonary abnormality.
[2022-05-05 13:15] LABS: Basophils # 0.1 10^3/uL (0.0-0.1); Basophils % 0.7 %; Eosinophils # 0.3 10^3/uL (0.0-0.8); Eosinophils % 2.8 %; Hematocrit 36.1 % (37.0-47.0); Lymphocytes # 2.5 10^3/uL (0.8-4.8); Lymphocytes % 28.1 %; Mean Corpuscular HGB Conc 30.5 g/dL (30.0-36.0); Mean Corpuscular Hemoglobin 26.1 pg (28.0-34.0); Mean Corpuscular Volume 85.5 fl (81-99); Mean Platelet Volume 11.6 fL (7.4-10.4); Monocytes # 0.8 10^3/uL (0.2-0.9); Monocytes % 8.3 %; Neutrophils % 59.8 %; Nucleated Red Blood Cells % 0 %; Platelet Count 348 10^3/cmm (130-400); Red Blood Count 4.22 10^6/uL (4.1-5.3); Red Cell Distribution Width 14.9 % (12.1-15.1)
[2022-05-05 13:32] LABS: Alanine Aminotransferase 14 U/L (0-33); Albumin Level 3.8 g/dL (3.5-5.2); Alkaline Phosphatase 106 U/L (35-105); Aspartate Amino Transferase 14 U/L (0-32); Blood Urea Nitrogen 10 mg/dL (6-20); Calcium 9.5 mg/dL (8.5-10.5); Carbon Dioxide 24 mmol/L (22-29); Chloride 100 mmol/L (98-107); Globulin 3.1 g/dL (1.3-4.6); Glomerular Filtration Rate 64.7 mL/min (90-130); Glucose 84 mg/dL (65-115); Lipase 25 U/L (13-60); Osmolality Calculated 278 mOsm/kg (285-295); Sodium 135 mmol/L (136-145); Total Bilirubin 0.2 mg/dL (0.15-1.2); Total Protein 6.9 g/dL (6.6-8.7)
[2022-05-05 13:33] LABS: Troponin(5th) Baseline 6 ng/L (0-10)
[2022-05-05] MEDS: morphine 4 mg/mL SDV 1 mL IVP (13:52)
[2022-05-05] MEDS: aspirin 81 mg Chew Tablet 324 MG PO (13:52)
[2022-05-05] MEDS: sodium chloride 0.9% 1,000 ML 999 ML IV (13:53)
[2022-05-05 14:13] LABS: D Dimer 0.32 ug/mIFEU (0-0.59)
[2022-05-05] MEDS: lidocaine 2% viscous 15 ML, aluminum-mag hydrox-simethicon 30 ML, sucralfate oral liq 1 GM PO (14:46)
[2022-05-05 15:09] LABS: Add Urine Microscopic? YES; Bilirubin Urine Neg (Negative); Blood Urine Trace (Negative); Glucose Urine UA Norm (Normal); Ketones Urine Negative (Negative); Leukocyte Esterase Urine Negative (Negative); Nitrate Urine Negative (Negative); Protein Urine Neg (Negative); Specific Gravity, Urine 1.015 (1.005-1.030); Urine Appearance Clear (CLEAR); Urine Color Light yellow (Yellow); Urobilinogen Urine Norm (Negative); pH Urine 6 (5-7)
[2022-05-05 15:11] LABS: HCG Qualitative Urine. Negative (Negative)
[2022-05-05 15:25] LABS: RBC Urine RARE /hpf (0-2); Squamous Epithelial Cell Urine RARE /hpf (0-5)
[2022-05-05 15:26] LABS: Add Urine Culture? No
[2022-05-05 16:19] LABS: Troponin 5 2HR Delta 0 ABS# (0-10)
== END 2022-05-05 16:00 | disposition home or self-care (01) ==
PROVIDERS: Emergency Provider Emergency Medicine; PCP Nurse Practitioner Family
DX: R07.9 Chest pain, unspecified (principal); F17.290 Nicotine dependence, other tobacco product, uncomplicated; I12.9 Hypertensive chronic kidney disease with stage 1 through stage 4 chronic kidney disease, or unspecified chronic kidney disease; N18.30 Chronic kidney disease, stage 3 unspecified
CPT/HCPCS: 71045; 80053; 81001; 81025; 83690; 84484; 85025; 85378; 93005; 96361; 96374; 99285; J2270; J7030

== ENCOUNTER 2022-07-08 09:01 | Outpatient (CLI) | payer MEDICAID, SELFPAY ==
--- NOTE | 2022-07-08 09:08 | XR_ITS ---
WS: [id number] XR KUB [id number] REASON FOR EXAM: STONES FINDINGS: Several 2 mm right intrarenal calculi. 2/3 2 mm left intrarenal calculi. No change compared to 01/01/2022. XR/XR KUB [id number] IMPRESSION: Bilateral intrarenal calculi as above.
== END 2022-07-08 09:02 | disposition home or self-care (01) ==
LOC: RAD 09:04
PROVIDERS: PCP Nurse Practitioner Family; Visit Provider Urology
DX: N20.2 Calculus of kidney with calculus of ureter (principal)
CPT/HCPCS: 74018; 81003

== ENCOUNTER 2022-07-20 15:44 | Emergency (ER) | payer MEDICAID, SELFPAY ==
[2022-07-20 16:43] VITALS: BMI 35.4
[2022-07-20 16:46] VITALS: BP 128/90; PULSE 96; RESP 18; TEMP 37; O2SAT 99
[2022-07-20 18:52] LABS: Add Urine Microscopic? YES; Bilirubin Urine Neg (Negative); Blood Urine 3+ (Negative); Glucose Urine UA Norm (Normal); Ketones Urine Negative (Negative); Leukocyte Esterase Urine Negative (Negative); Nitrate Urine Negative (Negative); Protein Urine Neg (Negative); Specific Gravity, Urine 1.015 (1.005-1.030); Urine Appearance Hazy (CLEAR); Urine Color Yellow (Yellow); Urobilinogen Urine Neg (Negative); pH Urine 7 (5-7)
[2022-07-20 18:59] LABS: Add Urine Culture? No; Amorphous Sediment Urine 2+ /hpf; RBC Urine 0-4 /hpf (0-2)
--- NOTE | 2022-07-20 18:59 | ED_ITS ---
HPI - Female Genitourinary General: Chief complaint: Urogenital-Female Stated complaint: 9 days post period, spotting and pain Time Seen by Provider: 07/20/22 18:42 History of Present Illness: Patient presents to the ER with complaints of 1 day cervical pain and vaginal spotting today. Patient has had a biopsy of her cervix in the past and states this feels the same. Patient does have a history of irregular periods. Patient does see Dr. Burleson TOYS INSPECTOR and she did call their office today and when I called her back they told her they would send her here to the ER for further evaluation. MD elicited complaint: vaginal bleeding and pelvic pain Onset (ago): day(s) (Pain started yesterday bleeding started today) Location of symptoms: vaginal (Vaginal bleeding and cervical pain) Severity: mild Consistency: constant Vaginal discharge: none Vaginal bleeding: scant and bright red Exacerbating factors: none Relieving factors: none Associated symptoms: Deny abdominal pain, headache(s) or nausea Treatment prior to arrival: none Sexual activity: Yes Patient : No Review of Systems General: Reports: 10 or more systems reviewed and unremarkable except in HPI and below Const: Denies: fever(s) or chills Eyes: Denies: change in vision or photophobia ENMT: Denies: throat pain or odynophagia Card: Denies: chest pain, palpitations or irregular heart rhythm Resp: Denies: dyspnea or productive cough GI: Denies: abdominal pain, nausea or vomiting : Reports: vaginal bleeding; Denies: flank pain, difficulty voiding or dysuria Musc: Denies: neck pain or back pain Skin/Breast: Denies: rash or pruritus Neuro: Denies: headache(s) or numbness in extremities Psych: Denies: anxiety or depression PFS ED PFSH: Medical History Anemia, unspecified Bleeding hemorrhoid Chronic kidney disease, stage 3 (moderate) Congenital hypothyroidism Essential (primary) hypertension Generalized anxiety disorder H/O hemorrhoids anal fissure repair and hemorrhoidectomy repair Major depressive disorder, recurrent episode, moderate with anxious distress Panic disorder without agoraphobia Polycystic ovarian syndrome Urolithiasis Vitamin D deficiency Surgical History History of hysteroscopy (04/14/22) Hysteroscopy, D&C via MyoSure and Hysteroscopic endometrial ablation via Nova Sure. Performed for menorrhagia by Dr. Burleson. History of urethral stent History of wisdom tooth extraction Hx of section (~2012) Hx of hernia repair x 3 Hx of tubal ligation (~2012) Family History Father , 2004 JEFFREY (obstructive sleep apnea) Alcohol abuse drug abuse Mother Lung disease COPD Alcohol abuse JEFFREY (obstructive sleep apnea) Heart disease Stomach cancer metastasis Family/Other Stroke Thyroid condition maternal aunt Breast cancer maternal aunt, early 30's Grandfather Clotting disorder maternal Stroke maternal Brother Hyperlipidemia Denies family history of Colon cancer Ovarian cancer Diabetes Anesthesia complication Bleeding disorder Hypertension Uterine cancer Social History Smoking and tobacco status: former smoker Second hand smoke exposure: No Alcohol intake: never Substance/Drug Use: current Marital status: Current occupational status: unemployed and student Physical Exam Const: COMMON NORMALS: no acute distress, average body habitus, patient oriented x3, no limitations, healthy appearing, alert and well nourished HENMT: COMMON NORMALS: normocephalic, atraumatic, hearing grossly normal bilaterally, external ears normal, Normal external nose present and moist oral mucous membranes HEAD & SCALP: normocephalic and atraumatic NOSE: Normal external nose present EXTERNAL EAR: Yes external ears normal Eye: COMMON NORMALS: Equal, round and reactive pupils present, EOMs intact bilaterally, conjunctivae normal and no scleral icterus CONJUNCTIVA: Yes conjunctivae normal PUPIL: Yes Equal, round and reactive pupils present Neck/C-Spine: COMMON NORMALS: full ROM, no lymphadenopathy, supple, no meningeal signs, no JVD and Thyroid normal THYROID: Thyroid normal Lymph: LYMPHATIC: no lymphadenopathy noted Chest: COMMONS NORMALS: normal inspection of the chest and normal palpation of entire chest wall Resp: COMMON NORMALS: normal respiratory effort, No retractions and No use of accessory muscles Cardio: COMMON NORMALS: no JVD, regular rate, regular rhythm, S1 normal heart sound present, S2 normal heart sound present, No gallops present (Cardio), No clicks present (Cardio) and No murmurs present (Cardio) RATE: regular rate RHYTHM: regular rhythm HEART SOUNDS: S1 normal heart sound present and S2 normal heart sound present GI: COMMON NORMALS: Normal to inspection, nondistended, normoactive bowel sounds present, Soft to palpation, non-tender, No hepatosplenomegaly present, no masses and no bruits PALPATION: Yes Soft to palpation and Yes No hepatosplenomegaly present : COMMON NORMALS: Yes no CVA tenderness BLADDER/KIDNEY EXAM: Yes no CVA tenderness Back/Pelvis: COMMON NORMALS: no CVA tenderness Neuro: COMMON NORMALS: patient oriented x3 SENSORIUM/ORIENTATION: Yes alert MENINGEAL SIGNS: Yes no meningeal signs Course Vital Signs: Vital signs: Vital Signs Temperature 98.6 F 07/20/22 16:46 Pulse Rate 96 07/20/22 16:46 Respiratory Rate 18 07/20/22 16:46 Blood Pressure 129/76 07/20/22 19:31 Pulse Oximetry 96 07/20/22 19:31 Oxygen Delivery Me thod Room Air 07/20/22 19:31 MDM - Female Medical Decision Making Patient presents with 2-day history of cervical pain and 1 day history of vaginal bleeding in between periods. Patient's UA showed patient did have 3+ blood. Patient was getting agitated because we were super busy and the her blood was not drawn for a while. Patient be discharged home to follow-up with Dr. Burleson [employer] INSPECTOR lab work will be run if anything is abnormal enough to change our plan patient will be called and informed of this. Differential Diagnosis Unlikely abdominal pain, acute appendicitis, constipation, diverticulitis, endometriosis, gastroenteritis, pancreatitis or small bowel obstruction Medical Records I reviewed the patient's medical records. Lab Data I reviewed the patient's lab results. Laboratory Results Urine Color Yellow (Yellow) 07/20/22 18:31 Urine Appearance Hazy (CLEAR) A 07/20/22 18:31 Urine pH 7 (5-7) 07/20/22 18:31 Ur Specific [place] 1.015 (1.005-1.030) 07/20/22 18:31 Urine Protein Neg (Negative) 07/20/22 18:31 Urine Glucose (UA) Norm (Normal) 07/20/22 18:31 Urine Ketones Negative (Negative) 07/20/22 18:31 Urine Blood 3+ (Negative) H 07/20/22 18:31 Urine Nitrate Negative (Negative) 07/20/22 18:31 Urine Bilirubin Neg (Negative) 07/20/22 18:31 Urine Urobilinogen Neg mg/dL (Negative) 07/20/22 18:31 Ur Leukocyte Esterase Negative (Negative) 07/20/22 18:31 Urine RBC 0-4 /hpf (0-2) H 07/20/22 18:31 Urine WBC None /hpf (0-5) 07/20/22 18:31 Ur Squamous Epith Cells 5-10 /hpf (0-5) H 07/20/22 18:31 Amorphous Sediment 2+ /hpf 07/20/22 18:31 Urine Bacteria None /hpf (NONE) 07/20/22 18:31 Discharge Plan Discharge Patient Disposition: Home Clinical Impression: Abnormal vaginal bleeding Condition: Stable Prescriptions: No Action fexofenadine-pseudoephedrine [Salma-D 12 Hour] 60-120 mg tablet extended release 12 hr 1 tab PO Q12H PRN (Reason: allergy symptoms) Qty: 30 0RF propranolol 10 mg tablet 10 mg PO BID PRN (Reason: Anxiety) sucralfate [Carafate] 1 gram tablet 1 g PO TID 7 Days Qty: 21 0RF dexlansoprazole [Dexilant] 60 mg capsule,biphase delayed releas 60 mg PO DAILY Qty: 30 0RF promethazine-DM 6.25-15 mg/5 mL syrup See Rx Instructions PO Q6H PRN (Reason: cough) Qty: 180 0RF Rx Instructions: 5-10mL orally every 6 hours PRN; azithromycin 250 mg tablet See Rx Instructions PO .COMPLEX Qty: 6 0RF Rx Instructions: For 250 mg dose pack: take 500 mg today (day 1), then 250 mg for 4 days (days 2-5) PO albuterol sulfate [Ventolin HFA] 90 mcg/actuation HFA aerosol inhaler 2 puff inhalation Q6H PRN (Reason: shortness of breath or wheezing) Qty: 8.5 0RF tranexamic acid [Lysteda] 650 mg tablet 1,300 mg PO BID Qty: 20 0RF norgestimate-ethinyl estradiol [Sprintec (28)] 0.25-35 mg-mcg tablet 1 tab PO DAILY Qty: 84 0RF fluoxetine 20 mg capsule 20 mg PO BEDTIME lamotrigine 100 mg tablet 100 mg PO BEDTIME Centrum Silver Women 8 mg iron-400 mcg-300 mcg Tablet 1 tab PO QAM Synthroid 137 mcg tablet 137 mcg PO QAM Zyrtec 10 mg tablet 10 mg PO DAILY PRN (Reason: Allergy Symptoms) simvastatin 40 mg tablet 40 mg PO BEDTIME ergocalciferol (vitamin D2) 1,250 mcg (50,000 unit) capsule 1,250 mcg PO Q7D Rx Instructions: on tuesday Discharge Orders: Discharge ED (Routine); Ordered 07/20/22 Ordered By: Ant Hatfield Referrals: Rosalva Mckeon, OLMAN [Primary Care Provider] - 1 week Patient Instructions: Abnormal (Dysfunctional) Uterine Bleeding (ED) Activity Restrictions/Additional Instructions: Please follow-up with Dr. Burleson [employer]YS INSPECTOR for further evaluation and treatment. Your blood was drawn in the ER tonight and you were discharged before the results were known if the results change our plan of treatment you will be called and informed of the changes. Coding Level of Care Code ED Inserting Operator for Ana Whitt
[2022-07-20 19:31] VITALS: BP 129/76; O2SAT 96
[2022-07-20 20:45] LABS: Basophils # 0.1 10^3/uL (0.0-0.1); Basophils % 0.8 %; Eosinophils # 0.5 10^3/uL (0.0-0.8); Eosinophils % 4.3 %; Hematocrit 40.2 % (37.0-47.0); Hemoglobin 12.4 g/dL (11.5-15.3); Lymphocytes % 38.3 %; Mean Corpuscular HGB Conc 30.8 g/dL (30.0-36.0); Mean Corpuscular Hemoglobin 25.4 pg (28.0-34.0); Mean Corpuscular Volume 82.2 fl (81-99); Mean Platelet Volume 10.7 fL (7.4-10.4); Monocytes # 0.5 10^3/uL (0.2-0.9); Monocytes % 4.4 %; Neutrophils # 5.51 10^3/uL (1.8-7.7); Nucleated Red Blood Cells % 0 %; Platelet Count 464 10^3/cmm (130-400); Red Blood Count 4.89 10^6/uL (4.1-5.3); Red Cell Distribution Width 14.8 % (12.1-15.1); White Blood Count 10.6 10^3/uL (4.0-10.0)
[2022-07-20 21:41] LABS: Alanine Aminotransferase 11 U/L (0-33); Albumin Level 4.4 g/dL (3.5-5.2); Alkaline Phosphatase 109 U/L (35-105); Anion Gap 17.8 (5-19); Aspartate Amino Transferase 10 U/L (0-32); Blood Urea Nitrogen 6 mg/dL (6-20); Calcium 9.4 mg/dL (8.5-10.5); Carbon Dioxide 27 mmol/L (22-29); Chloride 100 mmol/L (98-107); Globulin 3.3 g/dL (1.3-4.6); Glomerular Filtration Rate 72.6 mL/min (90-130); Glucose 84 mg/dL (65-115); Lipase 36 U/L (13-60); Osmolality Calculated 289 mOsm/kg (285-295); Potassium 3.8 mmol/L (3.5-5.1); Sodium 141 mmol/L (136-145); Total Bilirubin 0.2 mg/dL (0.15-1.2); Total Protein 7.7 g/dL (6.6-8.7)
[2022-07-20 21:48] LABS: Slide Review Slide Review Perform
== END 2022-07-20 20:48 | disposition home or self-care (01) ==
PROVIDERS: Emergency Medicine; Emergency Provider Emergency Medicine; PCP Nurse Practitioner Family
DX: N93.9 Abnormal uterine and vaginal bleeding, unspecified (principal); Z87.891 Personal history of nicotine dependence; I12.9 Hypertensive chronic kidney disease with stage 1 through stage 4 chronic kidney disease, or unspecified chronic kidney disease; N18.30 Chronic kidney disease, stage 3 unspecified
CPT/HCPCS: 80053; 81001; 83690; 84702; 85025; 99283

== ENCOUNTER 2022-08-06 18:40 | Emergency (ER) | payer MEDICAID, SELFPAY ==
[2022-08-06 19:12] VITALS: PULSE 87; RESP 15; TEMP 36.6; O2SAT 97
--- NOTE | 2022-08-06 19:50 | ED_ITS ---
HPI - Female Genitourinary General: Chief complaint: Urogenital-Female Stated complaint: possible kidney stone Time Seen by Provider: 08/06/22 19:48 Source: patient Mode of arrival: ambulatory Limitations: no limitations History of Present Illness: Patient presents to the emergency department today for evaluation treatment of urinary incontinence and bilateral flank pain. Patient has a long history of recurrent kidney stones and has had both lithotripsy and renal stents in the past. She reports similar symptoms in the past as she is experiencing today. She noticed onset of her symptoms this morning and has not had any vomiting. Patient does have a urologist but, reports he is retiring at the end of the month and has not been established with another physician. Review of Systems General: Reports: 10 or more systems reviewed and unremarkable except in HPI and below PFSH ED PFSH: Medical History Anemia, unspecified Bleeding hemorrhoid Chronic kidney disease, stage 3 (moderate) Congenital hypothyroidism Essential (primary) hypertension Generalized anxiety disorder H/O hemorrhoids anal fissure repair and hemorrhoidectomy repair Major depressive disorder, recurrent episode, moderate with anxious distress Panic disorder without agoraphobia Polycystic ovarian syndrome Urolithiasis Vitamin D deficiency Surgical History History of hysteroscopy (04/14/22) Hysteroscopy, D&C via MyoSure and Hysteroscopic endometrial ablation via NovaSure. Performed for menorrhagia by Dr. Burleson. History of urethral stent History of wisdom tooth extraction Hx of section (~2012) Hx of hernia repair x 3 Hx of tubal ligation (~2012) Family History Father , 2003 JEFFREY (obstructive sleep apnea) Alcohol abuse drug abuse Mother Lung disease COPD Alcohol abuse JEFFREY (obstructive sleep apnea) Heart disease Stomach cancer metastasis Family/Other Stroke Thyroid condition maternal aunt Breast cancer maternal aunt, early 30's Grandfather Clotting disorder maternal Stroke maternal Brother Hyperlipidemia Denies family history of Colon cancer Ovarian cancer Diabetes Anesthesia complication Bleeding disorder Hypertension Uterine cancer Social History Smoking and tobacco status: former smoker Second hand smoke exposure: No Alcohol intake: never Substance/Drug Use: current Marital status: Current occupational status: unemployed and student Physical Exam Const: COMMON NORMALS: no acute distress, average body habitus, patient oriented x3 and alert HENMT: COMMON NORMALS: normocephalic, atraumatic, hearing grossly normal bilaterally and moist oral mucous membranes HEAD & SCALP: normocephalic and atraumatic Eye: COMMON NORMALS: Equal, round and reactive pupils present, EOMs intact bilaterally and conjunctivae normal CONJUNCTIVA: Yes conjunctivae normal PUPIL: Yes Equal, round and reactive pupils present Neck/C-Spine: COMMON NORMALS: no JVD Lymph: LYMPHATIC: no lymphadenopathy noted Resp: COMMON NORMALS: normal respiratory effort, No retractions and No use of accessory muscles Cardio: COMMON NORMALS: no JVD and regular rate RATE: regular rate GI: COMMON NORMALS: Normal to inspection, nondistended, normoactive bowel sounds present Extremity: COMMON NORMALS: normal to inspection, full ROM and capillary refill normal Neuro: COMMON NORMALS: patient oriented x3 SENSORIUM/ORIENTATION: Yes alert Psych: COMMON NORMALS: mental status grossly normal, cooperative, normal affect, speech normal and activity/motor behavior normal SPEECH: Yes normal speech Course Vital Signs: Vital signs: Vital Signs Temperature 97.9 F 08/06/22 19:12 Pulse Rate 79 08/06/22 21:01 Respiratory Rate 18 08/06/22 20:32 Blood Pressure 116/89 08/06/22 21:01 Pulse Oximetry 94 08/06/22 21:01 Oxygen Delivery Me thod Room Air 08/06/22 21:01 MDM - Female Medical Decision Making Patient's KUB does show retained renal stones bilaterally-as previously seen on other KUB was. No signs of any obvious occlusive stone throughout the urinary system. Patient's urinalysis shows 2+ blood without concerns of infection which does correlate with concerns of kidney stone. Discussed with the patient no active stone visible on the KUB though stone may be very small or, patient may have just recently passed the stone. Patient reported feeling noticeable improvement with treatment here in the emergency department. We will continue treatment with antinausea medication and Flomax at home. Discussed the importance of pushing fluids and staying hydrated. Patient was also given a short course of some pain medication for the next few days. Patient is to follow-up with urology as needed or, should return to the emergency department for profuse vomiting, pain out of proportion, or new onset fevers. Patient verbalizes her understanding and agreement to treatment plan. Differential Diagnosis Likely abdominal pain, calculus of kidney, constipation, gastroenteritis and small bowel obstruction Lab Data Radiology Impressions KUB X-Ray 08/06/22 19:53 IMPRESSION: Bilateral renal calculi as described above. Laboratory Results HCG, Qual Negative (Negative) 08/06/22 20:13 Urine Color Yellow (Yellow) 08/06/22 20:13 Urine Appearance Clear (CLEAR) 08/06/22 20:13 Urine pH 6.5 (5-7) 08/06/22 20:13 Ur Specific Cheney 1.020 (1.005-1.030) 08/06/22 20:13 Urine Protein Neg (Negative) 08/06/22 20:13 Urine Glucose (UA) Norm (Normal) 08/06/22 20:13 Urine Ketones Negative (Negative) 08/06/22 20:13 Urine Blood 2+ (Negative) H 08/06/22 20:13 Urine Nitrate Negative (Negative) 08/06/22 20:13 Urine Bilirubin Neg (Negative) 08/06/22 20:13 Urine Urobilinogen Norm mg/dL (Negative) 08/06/22 20:13 Ur Leukocyte Esterase Negative (Negative) 08/06/22 20:13 Urine RBC 5-10 /hpf (0-2) H 08/06/22 20:13 Urine WBC 0-4 /hpf (0-5) H 08/06/22 20:13 Ur Squamous Epith Cells 0-4 /hpf (0-5) H 08/06/22 20:13 Amorphous Sediment Not Reportable 08/06/22 20:13 Urine Bacteria Not Reportable 08/06/22 20:13 Urine Mucus 3+ /hpf 08/06/22 20:13 Discharge Plan Discharge Patient Disposition: Home Clinical Impression: Hematuria, History of urinary calculi Condition: Stable Prescriptions: New Flomax 0.4 mg capsule 0.4 mg PO DAILY Qty: 5 0RF ondansetron 4 mg tablet,disintegrating 4 mg PO Q8H 5 Days Qty: 15 0RF No Action fexofenadine-pseudoephedrine [Salma-D 12 Hour] 60-120 mg tablet extended release 12 hr 1 tab PO Q12H PRN (Reason: allergy symptoms) Qty: 30 0RF propranolol 10 mg tablet 10 mg PO BID PRN (Reason: Anxiety) sucralfate [Carafate] 1 gram tablet 1 g PO TID 7 Days Qty: 21 0RF dexlansoprazole [Dexilant] 60 mg capsule,biphase delayed releas 60 mg PO DAILY Qty: 30 0RF promethazine-DM 6.25-15 mg/5 mL syrup See Rx Instructions PO Q6H PRN (Reason: cough) Qty: 180 0RF Rx Instructions: 5-10mL orally every 6 hours PRN; azithromycin 250 mg tablet See Rx Instructions PO .COMPLEX Qty: 6 0RF Rx Instructions: For 250 mg dose pack: take 500 mg today (day 1), then 250 mg for 4 days (days 2-5) PO albuterol sulfate [Ventolin HFA] 90 mcg/actuation HFA aerosol inhaler 2 puff inhalation Q6H PRN (Reason: shortness of breath or wheezing) Qty: 8.5 0RF tranexamic acid [Lysteda] 650 mg tablet 1,300 mg PO BID Qty: 20 0RF norgestimate-ethinyl estradiol [Sprintec (28)] 0.25-35 mg-mcg tablet 1 tab PO DAILY Qty: 84 0RF fluoxetine 20 mg capsule 20 mg PO BEDTIME lamotrigine 100 mg tablet 100 mg PO BEDTIME Centrum Silver Women 8 mg iron-400 mcg-300 mcg Tablet 1 tab PO QAM Synthroid 137 mcg tablet 137 mcg PO QAM Zyrtec 10 mg tablet 10 mg PO DAILY PRN (Reason: Allergy Symptoms) simvastatin 40 mg tablet 40 mg PO BEDTIME ergocalciferol (vitamin D2) 1,250 mcg (50,000 unit) capsule 1,250 mcg PO Q7D Rx Instructions: on tuesday Discharge Orders: Discharge ED (Routine); Ordered 08/06/22 Ordered By: Jayda Brito Referrals: Rosalva Mckeon FNP [Primary Care Provider] - Discharge Diet: Usual diet Discharge Activity: Increase activity as tolerated Activity Restrictions/Additional Instructions: X-ray KUB today shows no signs of any occlusive stone. You still have findings of bilateral kidney stones up within the renal pelvis though these should not be causing you pain. Urinalysis also confirms concerns for active urinary stone or, recently passed urinary stone. We are going to provide you Flomax and antinausea medication as will be extremely important that you continue to push her fluids. We are also providing you a short course of some pain medication. Please call your urologist office first thing on Tuesday to discuss follow-up if you are still having discomfort or, return to the emergency department through the weekend for any acute worsening including profuse vomiting, uncontrolled pain, or fever. Coding Level of Care Code ED Community Relations Manager for Ana Whitt
--- NOTE | 2022-08-06 19:53 | XRR_ITS ---
PROCEDURE INFORMATION: Exam: XR Abdomen Exam date and time: 08/06/2022 8:01 PM Age: 32 years old Clinical indication: Abdominal pain; Flank; Other: Bilateral; Additional info: Flank pain, HX of recurrent stones TECHNIQUE: Imaging protocol: Radiologic exam of the abdomen. Views: Frontal supine view of the abdomen. 1 View. COMPARISON: CR XR KUB [id number] 07/08/2022 9:22 AM FINDINGS: Gastrointestinal tract: Normal. No bowel dilation. Organs: 2 mm stones noted within both kidneys. Overall, the stones are less radiographically apparent compared to prior study. Bones/joints: Unremarkable. XR/XR KUB [id number] IMPRESSION: Bilateral renal calculi as described above.
[2022-08-06] MEDS: tamsulosin 0.4 mg Capsule PO (20:12)
[2022-08-06 20:32] VITALS: RESP 18; O2SAT 95
[2022-08-06] MEDS: ketorolac 30 mg/mL INJ 15 MG IVP (20:32)
[2022-08-06] MEDS: morphine 4 mg/mL SDV 1 mL IVP (20:32)
[2022-08-06] MEDS: ondansetron 2 mg/ML SDV 2 mL 4 MG IVP (20:32)
[2022-08-06] MEDS: sodium chloride 0.9% 1,000 ML 999 ML IV (20:34)
[2022-08-06 20:40] LABS: HCG Qualitative Urine. Negative (Negative)
[2022-08-06 20:41] LABS: Bilirubin Urine Neg (Negative); Blood Urine 2+ (Negative); Glucose Urine UA Norm (Normal); Ketones Urine Negative (Negative); Leukocyte Esterase Urine Negative (Negative); Nitrate Urine Negative (Negative); Protein Urine Neg (Negative); Urine Appearance Clear (CLEAR); Urine Color Yellow (Yellow); Urobilinogen Urine Norm (Negative); pH Urine 6.5 (5-7)
[2022-08-06 20:42] LABS: Add Urine Microscopic? YES
[2022-08-06 20:48] LABS: Add Urine Culture? No; Mucus Urine 3+ /hpf; Squamous Epithelial Cell Urine 0-4 /hpf (0-5); WBC Urine 0-4 /hpf (0-5)
[2022-08-06 21:01] VITALS: BP 116/89; PULSE 79; O2SAT 94
[2022-08-06 21:37] VITALS: BP 131/98; PULSE 88; O2SAT 100
== END 2022-08-06 21:39 | disposition home or self-care (01) ==
PROVIDERS: Emergency Provider Physician Assistant; PCP Nurse Practitioner Family
DX: R31.9 Hematuria, unspecified (principal); Z87.442 Personal history of urinary calculi; Z87.891 Personal history of nicotine dependence; I12.9 Hypertensive chronic kidney disease with stage 1 through stage 4 chronic kidney disease, or unspecified chronic kidney disease; N18.30 Chronic kidney disease, stage 3 unspecified
CPT/HCPCS: 74018; 81001; 81025; 96361; 96374; 96375; 99284; J1885; J2270; J2405; J7030

== ENCOUNTER 2022-09-13 17:06 | Outpatient (CLI) | payer MEDICAID, SELFPAY ==
--- NOTE | 2022-09-13 17:15 | USR_ITS ---
PROCEDURE INFORMATION: Exam: US Pelvis, Transvaginal Exam date and time: 09/13/2022 5:23 PM Age: 32 years old Clinical indication: Condition or disease; Other: Abnormal uterine bleeding; Additional info: N93.9 - abnormal uterine and vaginal bleeding, unspecified, patient needs seen before 09/13/22 if possible. TECHNIQUE: Imaging protocol: Real-time transvaginal pelvic ultrasound with image documentation. Transvaginal imaging was used for better evaluation of the endometrium, adnexa, and/or cervix. COMPARISON: US pelv w/transvag [id number] 10/12/2021 1:05 PM FINDINGS: Uterus: The uterus measures 8.7 x 5.0 x 4.9 cm. Normal size, contour and echotexture. Nabothian cysts are seen in the lower uterine segment and cervix. The endometrial echo complex measures 0.7 cm. Small ovoid fluid collection is seen within the endometrial canal. Right ovary/adnexa: The right ovary measures 2.6 x 2.0 x 4.0 cm. Arterial and venous flow are documented. No mass. Left ovary/adnexa: The left ovary measures 3.0 x 2.4 x 3.0 cm. Arterial and venous flow are documented. No mass. Urinary bladder: Normal as imaged. Intraperitoneal space: Small volume free fluid in the pelvis. US/US transvaginal [id number] IMPRESSION: The endometrial echo complex measures 0.7 cm. Small ovoid fluid collection is seen within the endometrial canal. Correlate with beta hCG to exclude . Otherwise, this could reflect some simple fluid or blood products
== END 2022-09-13 17:07 | disposition home or self-care (01) ==
PROVIDERS: PCP Nurse Practitioner Family; Visit Provider Obstetrics & Gynecology
DX: N93.9 Abnormal uterine and vaginal bleeding, unspecified (principal); N85.9 Noninflammatory disorder of uterus, unspecified
CPT/HCPCS: 76830

== ENCOUNTER 2022-11-09 11:04 | Observation (INO) | payer MEDICAID, SELFPAY ==
[2022-11-04 10:28] VITALS: BMI 40.7
[2022-11-04 10:48] LABS: Basophils # 0.1 10^3/uL (0.0-0.1); Basophils % 0.6 %; Eosinophils # 0.3 10^3/uL (0.0-0.8); Eosinophils % 3.1 %; Hematocrit 37.4 % (36-47); Lymphocytes # 2.5 10^3/uL (0.8-4.8); Lymphocytes % 25.7 %; Mean Corpuscular HGB Conc 31.8 g/dL (30-55); Mean Corpuscular Hemoglobin 26.9 pg (27-33); Mean Corpuscular Volume 84.6 fl (85-98); Monocytes # 0.6 10^3/uL (0.2-0.9); Monocytes % 6.2 %; Neutrophils # 6.29 10^3/uL (1.8-7.7); Nucleated Red Blood Cells % 0 %; Platelet Count 350 10^3/cmm (157-399); Red Blood Count 4.42 10^6/uL (3.85-5.65); Red Cell Distribution Width 14.8 % (12.1-15.1); White Blood Count 9.83 10^3/uL (3.29-11.43)
[2022-11-04 11:05] LABS: Alanine Aminotransferase 12 U/L (0-33); Albumin Level 4.3 g/dL (3.5-5.2); Alkaline Phosphatase 83 U/L (35-105); Anion Gap 13.1 (5-19); Aspartate Amino Transferase 11 U/L (0-32); Blood Urea Nitrogen 11 mg/dL (6-20); Calcium 9.3 mg/dL (8.5-10.5); Carbon Dioxide 25 mmol/L (22-29); Chloride 104 mmol/L (98-107); Globulin 2.9 g/dL (1.3-4.6); Glomerular Filtration Rate 72.6 mL/min (90-130); Glucose 108 mg/dL (65-115); Osmolality Calculated 286 mOsm/kg (285-295); Potassium 4.1 mmol/L (3.5-5.1); Sodium 138 mmol/L (136-145); Total Bilirubin 0.2 mg/dL (0.15-1.2); Total Protein 7.2 g/dL (6.6-8.7)
--- NOTE | 2022-11-04 11:36 | ANES.PREANE2 ---
Pre-Anesthetic Assessment Height/Weight: Height 1.6 m Weight 104.326 kg Operation Date: 11/09/22 07:20 Proposed Procedures p otal vaginal hysterectomy, bilateral salpingo-oophorectomy 92778,N92.0(Not Applicable) - Juarez Burleson MD s Salpingo-Oophorectomy (Vaginal)(Not Applicable) - Juarez Burleson MD Familial anesthetic complications: None Was Beta Dawn taken within 24 hours: N/A Was Clonidine taken within 24 hours: N/A Last intake: > 8hrs Social No alcohol and No tobacco Exam alert, oriented x 3, clear to auscultation bilaterally and regular rate & rhythm Airway Mallampati: Class III Dentition: full Chronic Renal Insufficiency Metabolic Thyroid Disease Anesthetic Plan ASA status: 2 Anesthesia: General Risk of > 500 ml blood loss (7ml/kg in children): No Medications/Allergies Home Medications Medication Instructions Recorded Confirmed Last Taken Type propranolol 10 mg tablet 10 mg PO BID PRN Anxiety 02/09/22 11/04/22 04/13/22 History cetirizine 10 mg tablet (Zyrtec) 10 mg PO DAILY PRN Allergy Symptoms 05/05/22 11/04/22 Unknown History fluoxetine 20 mg capsule 20 mg PO BEDTIME 05/05/22 11/04/22 05/04/22 History lamotrigine 100 mg tablet 100 mg PO BEDTIME 05/05/22 11/04/22 05/04/22 History ctgjmqnc-qhbw-khld 8 mg-folic 400 1 tab PO QAM 05/05/22 11/04/22 05/05/22 History mcg-K 50 mcg-lutein 300 mcg tablet (Centrum Silver Women) simvastatin 40 mg tablet 40 mg PO BEDTIME 05/05/22 11/04/22 05/04/22 History albuterol sulfate 90 mcg/actuation 2 puff inhalation Q6H PRN 07/05/22 11/04/22 Unknown Rx aerosol inhaler (Ventolin HFA) shortness of breath or wheezing #8.5 grams levothyroxine 137 mcg tablet 137 mcg PO DAILY 11/04/22 11/04/22 Unknown History (Synthroid) Allergies Allergy/AdvReac Type Severity Reaction Status Date / Time ibuprofen Allergy Unknown Verified 11/04/22 10:24 morphine Allergy ADR-Headach Verified 11/04/22 10:24 e propoxyphene Allergy ALGY-Hivralph Verified 11/04/22 10:24 [From Darvocet-N 100] [facility] Anesthesia Medical History Anemia, unspecified Bleeding hemorrhoid Chronic kidney disease, stage 3 (moderate) Congenital hypothyroidism Essential (primary) hypertension Generalized anxiety disorder H/O hemorrhoids anal fissure repair and hemorrhoidectomy repair Major depressive disorder, recurrent episode, moderate with anxious distress Panic disorder without agoraphobia Polycystic ovarian syndrome Urolithiasis Vitamin D deficiency Surgical History History of hysteroscopy (04/14/22) Hysteroscopy, D&C via MyoSure and Hysteroscopic endometrial ablation via NovaSure. Performed for menorrhagia by Dr. Burleson. History of urethral stent History of wisdom tooth extraction Hx of section (~2012) Hx of hernia repair x 3 Hx of tubal ligation (~2012) Family History Father , 2004 JEFFREY (obstructive sleep apnea) Alcohol abuse drug abuse Mother Lung disease COPD Alcohol abuse JEFFREY (obstructive sleep apnea) Heart disease Stomach cancer metastasis Family/Other Stroke Thyroid condition maternal aunt Breast cancer maternal aunt, early 30's Grandfather Clotting disorder maternal Stroke maternal Brother Hyperlipidemia Denies family history of Colon cancer Ovarian cancer Diabetes Anesthesia complication Bleeding disorder Hypertension Uterine cancer Social History Smoking and tobacco status: former smoker Second hand smoke exposure: No Alcohol intake: never Substance/Drug Use: current Marital status: Current occupational status: unemployed and student Data Anesthesia 11/04/22 10:37 11/04/22 10:37 Short CBC 11/04/22 Range/Units 10:37 WBC 9.83 (3.29-11.43) 10^3/uL Hgb 11.90 (11.27-16.99) g/dL Hct 37.4 (36-47) % MCV 84.6 L (85-98) fl Plt Count 350 (157-399) 10^3/cmm Neut % (Auto) 64.0 % Neut # (Auto) 6.29 (1.8-7.7) 10^3/uL BMP 11/04/22 10:37 Sodium 138 Potassium 4.1 Chloride 104 Carbon Dioxide 25 BUN 11 Creatinine 0.9 Glucose 108 Calcium 9.3 Liver Function 11/04/22 Range/Units 10:37 Total Bilirubin 0.2 (0.15-1.2) mg/dL AST 11 (0-32) U/L ALT 12 (0-33) U/L Alkaline Phosphatase 83 (35-105) U/L Albumin 4.3 (3.5-5.2) g/dL Blood Bank 11/04/22 10:37 Blood Type O Positive Rho(D) Type Positive Antibody Screen Negative Cardiac Studies: No Data to Display
[2022-11-09] VITALS (27 sets, daily range): BP systolic 101–139; BP diastolic 55–98; PULSE 66–115; RESP 14–20; TEMP 36.1–36.7; O2SAT 2–100
[2022-11-09] MEDS: sodium chloride 0.9% 500 ML IV (06:36)
[2022-11-09] MEDS: ondansetron 2 mg/ML SDV 2 mL 4 MG IVP (06:38)
[2022-11-09] MEDS: scopolamine 1.5 Patch 1 PATCH TRANSDERMA (06:39)
--- NOTE | 2022-11-09 06:44 | P.ANESUD_ITS ---
Pre-Anesthetic Update Pre-Anesthetic Assessment: Date of Surgery/Procedure: 11/09/22 Preop Maria Guadalupe gnosis: Abnormal uterine bleeding, pelvic pain Proposed Procedure: Operation Date: 11/09/22 07:00 Proposed Procedures p Total vaginal hysterectomy, bilateral salpingo-oophorectomy 63792,N92.0(Not Applicable) - Juarez Burleson MD s Salpingo-Oophorectomy (Vaginal)(Not Applicable) - Juarez Burleson MD Any changes to Pre-Anesthetic Assessment?: No Last Intake: Intake Last Liquid Date 11/08/22 Last Liquid Time 20:30 Last Solid Date 11/08/22 Last Solid Time 17:00 Vitals: Temperature 97.3 F L 11/09/22 06:11 Temperature Source Temporal Artery S can 11/09/22 06:11 Pulse Rate 84 11/09/22 06:11 Respiratory Rate 16 11/09/22 06:11 Blood Pressure 134/97 11/09/22 06:11 Blood Pressure Aleyda n 109 11/09/22 06:11 Pulse Oximetry 97 11/09/22 06:11 Oxygen Delivery Me thod Room Air 11/09/22 06:11 Exam: Pre-Anes Outpt Exam: alert, oriented x 3, clear to auscultation bilaterally and regular rate & rhythm Cardiac Studies: No Data to Display
--- NOTE | 2022-11-09 06:55 | W.PM.OPSUD ---
Surgery/Procedure H&P Update DATE OF PROCEDURE: November 09, 2022 DATE H&P PERFORMED: 10/21/22 H&P UPDATE INFORMATION: I have reviewed H&P completed within last 30 days, I have examined patient prior to procedure and No changes to prior documentation PREOP DIAGNOSIS: Abnormal uterine bleeding, pelvic pain PRIMARY INDICATION FOR PROCEDURE: Menorrhagia unresponsive to medical management PLANNED PROCEDURE: Operation Date: 11/09/22 07:00 Proposed Procedures p Total vaginal hysterectomy, bilateral salpingo-oophorectomy 60957,N92.0(Not Applicable) - Juarez Burleson MD s Salpingo-Oophorectomy (Vaginal)(Not Applicable) - Juarez Burleson MD
[2022-11-09] MEDS: metoclopramide oral liquid 5 mg/5 mL (ml) 10 MG PO (06:58)
[2022-11-09 07:11] LABS: OR HCG Qualitative Urine Negative (Negative)
[2022-11-09] MEDS: ceFAZolin 2,000 MG in sodium chloride 0.9% (plus) 50 ML 100 MG IV (07:14)
[2022-11-09] MEDS: sodium chloride 0.9% 1,000 ML 30 ML IV (07:20)
[2022-11-09 07:43] LABS: Add Urine Culture? No; Add Urine Microscopic? YES; Bacteria Urine TRACE /hpf; Bilirubin Urine Neg (Negative); Blood Urine 3+ (Negative); Glucose Urine UA Norm (Normal); Ketones Urine Negative (Negative); Leukocyte Esterase Urine Trace (Negative); Nitrate Urine Negative (Negative); Protein Urine Neg (Negative); RBC Urine 0-4 /hpf (0-2); Urine Appearance Hazy (CLEAR); Urine Color Yellow (Yellow); Urobilinogen Urine Norm (Negative); pH Urine 6.5 (5-7)
[2022-11-09] MEDS: lidocaine-epi 2% 20 mL INJ INJECTION (09:06)
--- NOTE | 2022-11-09 09:35 | PM.OP ---
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 Dasilva 32-year-old female with a history of menorrhagia unresponsive to medical management. Procedure: After informed consent, the patient was taken to the operating room where general anesthesia was administered. Pre-Procedure Time-Out verifying the correct patient identity, correct procedure verified with consent, correct site and side, correct patient position, availability of correct implants and any special equipment or requirements was performed and acknowledge by the OR team. She was placed in the dorsal lithotomy position and prepped and draped in sterile fashion. The patient was examined under anesthesia and found to have a normal uterus with normal adnexa. A Dominguez catheter was placed in the bladder. A weighted speculum was placed in the vagina, and the anterior lip of cervix was grasped with the single toothed tenaculum. A uterine manipulator was advanced into the endocervical. Tenaculum was removed after uterine manipulator was secured. The speculum was removed from the vagina. The attention was brought to abdomen after changing gloves. The base of the umbilicus was grasped with an Allis clamp and with 2 towel clamp bilaterally tenting up the umbilicus an intraumbilical incision was made with a scalpel. While tenting up on the abdomen, a Verres needle with sleeve was admitted into the intra-abdominal cavity. A saline drop test was performed and noted to be within normal limits. Pneumoperitoneum was attained with 4 liters of carbon dioxide. The Verres needle was removed. Then a 5 mm Optiview trocar and cannula were inserted under direct visualization without complications. Trocars were removed and the laparoscope was inserted and connected to the video camera light source. A 5 mm trocar and cannula were placed in the right lower quadrant under direct visualization after infiltration of 0.5% Marcaine with epinephrine. A 5 mm trocar and cannula were placed in the left lower quadrant under direct visualization after infiltration of 0.5% Marcaine with epinephrine. The pelvic contents were visualized and noted a small uterus, deep cul-de-sac, normal bilateral fallopian tubes and ovaries, normal appendix, and both ureters were identified crossing the pelvic brim and pelvic sidewall. The left round ligament was coagulated and transected using LigaSure device. The left broad ligament was opened down to the level of the uterine artery and vein. The left infundibulopelvic ligament was coagulated using LigaSure and then transected. The right round ligament was coagulated and transected using LigaSure, and the right broad ligament was opened down to the level of the right uterine artery and vein. The right uterosacral ligament was coagulated and transected using LigaSure. Peritoneum of the lower uterine segment was entered using LIGASURE, and the bladder was dissected off the lower uterine segment using blunt dissection. Careful inspection revealed complete hemostasis. A Bookwalter vaginal retractor was placed to visualize the cervix. The cervix was grasped across the anterior lip with a single-toothed tenaculum and circumferentially infiltrated with 1% Xylocaine with epinephrine at this time. The cervix was circumferentially excised with the scalpel. The vaginal mucosa was dissected superiorly with sharp dissection. The anterior peritoneal reflection was identified, and it was entered with Metzenbaum scissors. A posterior colpotomy was made through the cul-de-sac space. The posterior peritoneum was identified in similar fashion and Metzenbaum scissors were used to enter the cul-de-sac. At this time, the Bookwalter vaginal inferior blade was placed, advanced posteriorly into the cul-de-sac. At this time, the left and right uterosacral ligaments were isolated and ligated with 0 Vicryl. The LigaSure device was then used in a serial fashion up through the cardinal ligaments bilaterally. Finally, the uterine arteries were cross-clamped, cut, and ligated with the LigaSure device. LigaSure device was then used up through the broad ligaments superiorly and finally the uterus was rotated posteriorly. The left and right tubes were then cross-clamped and ligated with LigaSure device. The uterus was excised and submitted for pathologic evaluation. At this time, Jane clamps were used to grasp the left and right ovaries, and they were removed per the patient's request. Curved Zeppelin clamps were placed across the infundibulopelvic ligaments bilaterally and curved scissors were used to excise the specimen from the Zeppelin clamp. The pedicles were doubly ligated bilaterally with 0 Vicryl and hemostasis noted to be achieved. No other abnormalities were noted in the pelvic cavity. At this time, instruments were removed from the patient's abdominopelvic cavity. Indigocarmine was given IV vaginal. The cuff closure and peritoneum were incorporated into one layer with 0 Vicryl suture in a continuous running interlocking fashion. Hemostasis was noted to be achieved. Dominguez catheter was then placed yielding clear kira urine. The patient tolerated the procedure well and was taken to the recovery room in a stable condition. Sponge and needle counts were correct x3.
[2022-11-09] MEDS: meperidine 50 mg/mL INJ 12.5 MG IVP (10:04)
[2022-11-09] MEDS: HYDROmorphone 1 mg/mL INJ 1 mL 0.5 MG IVP (10:14)
--- NOTE | 2022-11-09 10:36 | ANE.PACU2 ---
Inpatient post-anesthesia follow up: Airway intact: Yes Vital signs: Temperature 97.0 F Pulse Rate 87 Respiratory Rate 17 Blood Pressure 129/80 Pulse Oximetry 100 Oxygen Delivery Me thod Room Air Oxygen Flow Rate Fraction of Inspir ed Oxygen Hydration adequate: Yes Nausea and vomiting: No Pain level: 1 Mental status: Baseline
[2022-11-09] MEDS: dextrose 5%-lactated ringers 1,000 ML 125 ML IV (11:00)
[2022-11-09] MEDS: fentaNYL 50 mcg/mL INJ 2mL IVP ×4 (12:22→20:10)
[2022-11-09] MEDS: acetaminophen 325 mg Tablet 650 MG PO (16:20)
[2022-11-09] MEDS: docusate sodium 100 mg Capsule PO (18:29)
[2022-11-09] MEDS: lamoTRIgine 100 mg Tablet PO (20:14)
[2022-11-09] MEDS: atorvastatin 40 mg Tablet 20 MG PO (20:14)
[2022-11-09] MEDS: fluoxetine 20 mg Capsule PO (20:14)
[2022-11-10 04:28] VITALS: BP 108/71; PULSE 92; RESP 15; TEMP 36.9; O2SAT 98
[2022-11-10 05:02] LABS: Hematocrit 32.8 % (36-47); Mean Corpuscular HGB Conc 31.4 g/dL (30-55); Mean Corpuscular Hemoglobin 27.1 pg (27-33); Mean Corpuscular Volume 86.3 fl (85-98); Mean Platelet Volume 11.5 fL (7.4-10.4); Platelet Count 309 10^3/cmm (157-399); Red Cell Distribution Width 14.4 % (12.1-15.1); White Blood Count 12.83 10^3/uL (3.29-11.43)
[2022-11-10 05:22] VITALS: RESP 16
[2022-11-10] MEDS: fentaNYL 50 mcg/mL INJ 2mL IVP (05:22)
--- NOTE | 2022-11-10 05:37 | PC.NURSE ---
Catheter insertion was not charted in OR. Catheter present on admission to OB floor. This RN removed 16 Fr josue catheter at approximately 0505 on 11/10/2022. Catheter intact upon removal. Vaginal packing removed after. Patient tolerated well.
[2022-11-10] MEDS: HYDROcodone-acetaminophen 5-325 mg Tablet 2 TAB PO (08:12)
[2022-11-10] MEDS: levothyroxine 137 mcg Tablet PO (08:12)
[2022-11-10] MEDS: docusate sodium 100 mg Capsule PO (08:12)
--- NOTE | 2022-11-10 09:30 | PM.OBGYDC ---
Discharge Providers INFORMATION CLERK Date of Admission: 11/09/22 11:04 Date of Discharge: 11/10/22 Attending Provider at Admission: Juarez Burleson MD Attending Provider at Discharge: Juarez Burleson MD Primary Care Provider: OLMAN Buckner Reason for Visit Reason for Visit: 25746 N92.0 Hospital Course Hospital Course Mrs. Dasilva 32-year-old female with a history of abnormal uterine bleeding unresponsive to medical management admitted for laparoscopic-assisted vaginal hysterectomy. The procedure was performed without complication. Overnight observation was uneventful. She is afebrile and hemodynamically stable postoperative day 1. Ambulating without difficulty. Tolerating diet well. Pain under control. She was counseled regarding pelvic rest for 6 weeks (no sex, no tampons, no vaginal douches). Return to the emergency room if any fever, increased bleeding or pain. Physical Exam Narrative: GA: Alert and oriented ?3. HEENT: WNL. Heart: Regular rate and rhythm. Lungs: Clear to auscultation bilaterally. 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 Extremities: No edema, no cyanosis, no calves pain. Urinary Catheter Management: Dominguez: Cath Placed During This Visit: yes, but has since been removed by the nurse Reason for Continuing Indwelling Catheter: Decision to DC Catheter Urinary Catheter Date of Insertion: 11/09/22 Urinary Catheter Time of Insertion: 07:40 Date Urinary Catheter Removed: 11/10/22 Time Urinary Catheter Discontinued: 05:05 History History History 3 Term 1 1 Miscarriages/Ectopic 1 Living Children 2 Discharge Data Studies Completed and Pending Pending at discharge Category Date Time Status Pathology: Surgical [PTH] Routine Pth 11/09/22 09:37 Received Laboratory Results WBC 12.83 10^3/uL (3.29-11.43) H 11/10/22 04:55 RBC 3.80 10^6/uL (3.85-5.65) L 11/10/22 04:55 Hgb 10.30 g/dL (11.27-16.99) L 11/10/22 04:55 Hct 32.8 % (36-47) L 11/10/22 04:55 MCV 86.3 fl (85-98) 11/10/22 04:55 MCH 27.1 pg (27-33) 11/10/22 04:55 MCHC 31.4 g/dL (30-55) 11/10/22 04:55 RDW 14.4 % (12.1-15.1) 11/10/22 04:55 Plt Count 309 10^3/cmm (157-399) 11/10/22 04:55 MPV 11.5 fL (7.4-10.4) H 11/10/22 04:55 Neut % (Auto) 64.0 % 11/04/22 10:37 Lymph % (Auto) 25.7 % 11/04/22 10:37 [place] % (Auto) 6.2 % 11/04/22 10:37 Eos % (Auto) 3.1 % 11/04/22 10:37 Baso % (Auto) 0.6 % 11/04/22 10:37 Neut # (Auto) 6.29 10^3/uL (1.8-7.7) 11/04/22 10:37 Lymph # (Auto) 2.5 10^3/uL (0.8-4.8) 11/04/22 10:37 [place] # (Auto) 0.6 10^3/uL (0.2-0.9) 11/04/22 10:37 Eos # (Auto) 0.3 10^3/uL (0.0-0.8) 11/04/22 10:37 Baso # (Auto) 0.1 10^3/uL (0.0-0.1) 11/04/22 10:37 Nucleated RBC % (auto) 0 % 11/04/22 10:37 Nucleated RBCs # 0.0 /100WBC 11/04/22 10:37 Sodium 138 mmol/L (136-145) 11/04/22 10:37 Potassium 4.1 mmol/L (3.5-5.1) 11/04/22 10:37 Chloride 104 mmol/L (98-107) 11/04/22 10:37 Carbon Dioxide 25 mmol/L (22-29) 11/04/22 10:37 Anion Gap 13.1 (5-19) 11/04/22 10:37 BUN 11 mg/dL (6-20) 11/04/22 10:37 Creatinine 0.9 mg/dL (0.5-0.9) 11/04/22 10:37 GFR Calculation 72.6 mL/min (90-130) L 11/04/22 10:37 Glucose 108 mg/dL (65-115) 11/04/22 10:37 Calculated Osmolality 286 mOsm/kg (285-295) 11/04/22 10:37 Calcium 9.3 mg/dL (8.5-10.5) 11/04/22 10:37 Total Bilirubin 0.2 mg/dL (0.15-1.2) 11/04/22 10:37 AST 11 U/L (0-32) 11/04/22 10:37 ALT 12 U/L (0-33) 11/04/22 10:37 Alkaline Phosphatase 83 U/L (35-105) 11/04/22 10:37 Total Protein 7.2 g/dL (6.6-8.7) 11/04/22 10:37 Albumin 4.3 g/dL (3.5-5.2) 11/04/22 10:37 Globulin 2.9 g/dL (1.3-4.6) 11/04/22 10:37 Urine Color Yellow (Yellow) 11/09/22 07:12 Urine Appearance Hazy (CLEAR) A 11/09/22 07:12 Urine pH 6.5 (5-7) 11/09/22 07:12 Ur Specific [place] 1.010 (1.005-1.030) 11/09/22 07:12 Urine Protein Neg (Negative) 11/09/22 07:12 Urine Glucose (UA) Norm (Normal) 11/09/22 07:12 Urine Ketones Negative (Negative) 11/09/22 07:12 Urine Blood 3+ (Negative) H 11/09/22 07:12 Urine Nitrate Negative (Negative) 11/09/22 07:12 Urine Bilirubin Neg (Negative) 11/09/22 07:12 Urine Urobilinogen Norm mg/dL (Negative) 11/09/22 07:12 Ur Leukocyte Esterase Trace (Negative) H 11/09/22 07:12 Urine RBC 0-4 /hpf (0-2) H 11/09/22 07:12 Urine WBC 5-10 /hpf (0-5) H 11/09/22 07:12 Ur Squamous Epith Cells 5-10 /hpf (0-5) H 11/09/22 07:12 Amorphous Sediment Not Reportable 11/09/22 07:12 Urine Bacteria Trace /hpf (NONE) 11/09/22 07:12 Urine HCG, Qual Negative (Negative) 11/09/22 07:09 Blood Type O Positive 11/09/22 06:30 Rho(D) Type Positive 11/09/22 06:30 Antibody Screen Negative 11/09/22 06:30 Vitals Last Vital Signs Temp 98.4 F 11/10/22 04:28 Pulse 92 11/10/22 04:28 Resp 16 11/10/22 05:22 BP 108/71 11/10/22 04:28 Pulse Ox 98 11/10/22 04:28 O2 Del Method Room Air 11/10/22 04:28 O2 Flow Rate 2 11/09/22 14:30 Discharge Plan Discharge Patient Disposition: Home Condition: Stable Prescriptions: New hydrocodone-acetaminophen 5-325 mg tablet 1 tab PO Q4H PRN (Reason: pain) Qty: 20 0RF acetaminophen 325 mg capsule 325 mg PO Q4H PRN (Reason: fever or pain) Qty: 60 0RF docusate sodium [Colace] 100 mg capsule 100 mg PO BID Qty: 60 0RF ferrous sulfate [Iron (ferrous sulfate)] 325 mg (65 mg iron) tablet 325 mg PO BID Qty: 60 0RF Continued propranolol 10 mg tablet 10 mg PO BID PRN (Reason: Anxiety) albuterol sulfate [Ventolin HFA] 90 mcg/actuation HFA aerosol inhaler 2 puff inhalation Q6H PRN (Reason: shortness of breath or wheezing) Qty: 8.5 0RF levothyroxine [Synthroid] 137 mcg tablet 137 mcg PO DAILY Rx Instructions: Take 1 tablet by mouth once daily fluoxetine 20 mg capsule 20 mg PO BEDTIME lamotrigine 100 mg tablet 100 mg PO BEDTIME Centrum Silver Women 8 mg iron-400 mcg-300 mcg Tablet 1 tab PO QAM cetirizine [Zyrtec] 10 mg tablet 10 mg PO DAILY PRN (Reason: Allergy Symptoms) simvastatin 40 mg tablet 40 mg PO BEDTIME Discharge Orders: Discharge Order (Routine); Ordered 11/10/22 Ordered By: Juarez Burleson Referrals: Juarez Burleson MD [Physician] - 11/23/22 9:45 am (2 week post-op: 11/23/22 @9:45 6 week post-op: 12/20/22 @1:30) Discharge Diet: Usual diet Discharge Activity: Limit activity as instructed Patient Instructions: Laparoscopic Hysterectomy (DC), OB Discharge Report, OB Food/Drug Interaction Guide, Opioid Safety Activity Restrictions/Additional Instructions: 1. Please call [facility] on next working day to make your post-operative appointment in 2 weeks. 2. Please stay home until you come back to the clinic on first post-hospatilization check up. 3. Please follow instructions on your medications CAREFULLY. 4. If you have abdominal incision, do not cover it unless dressing is necessary because of drainage. OK to shower, but avoid bath. Leave steri-strips until they fall off. If they are still on one week after surgery, you may remove them. 5. If you had vaginal surgery or vaginal repair, Dr. Burleson may instruct you to take SITZ bath. 6. Yellow, blood tinged odorous vaginal discharge is usually normal after hysterectomy or vaginal surgeries. 7. No SEXUAL INTERCOURSE, tampons, or douches until you are completely released from the post-operative care. 8. Avoid constipation by eating right and maybe using some Metamucil or Milk of Magnesia. 9. All prescription refills are given during the working hours. Please do no wait till it runs out. Call the clinic at [phone] before your medication runs out. The clinic will get in touch with your doctor to prescribe medications if necessary. 10. Please remain within 40 mile radius from our hospital because emergencies do happen now and then during the post-operative period. 11. If you have stairs at home, take one step at a time slowly and minimize the number of trips. It helps to stay in one floor for the next few days. No lifting except what you can lift by one hand until you are released from the post-operative care. 12. Driving is discouraged until you are well healed. It may be 3-4 weeks before you feel strong enough to drive. You should be able to turn and look through the rear window without pain and you should be able to push the brake pedal very hard without pain before you drive. No fast rules, but SAFETY should be your primary concern. DO NOT drive if you are on sedating medications such as narcotics. 13. Call the clinic (during working hours) to make urgent appointment or go to the Emergency room, if any of the following occurs: i. Vaginal bleeding becomes heavy, more than a period. ii. Incision becomes red and sore, or drains pus. iii. Your TEMPERATURE is over 100.4F or you have chill. iv. IV site becomes red and swollen (a little ``knot?? is usually OK) v. Persistent nausea and vomiting vi. Persistent constipation or diarrhea vii. Rash or allergic reaction to medications. Discharge Attestations INFORMATION CLERK Time Spent in Discharge Care*: greater than 30 min Coding Level of Care Code Acute Code for Chg Fwd Diagnoses
[2022-11-10 10:20] VITALS: BP 129/75; PULSE 85; RESP 16; TEMP 36.9
== END 2022-11-10 10:22 | disposition home or self-care (01) ==
LOC: OBGYN 11-10 07:00
PROVIDERS: Admitting Provider Obstetrics & Gynecology; PCP Nurse Practitioner Family; Visit Provider Obstetrics & Gynecology
PROC: (CPT 58720; 2022-11-09 07:00)
PROC: 0UT9FZZ Resection of Uterus, Via Natural or Artificial Opening With Percutaneous Endoscopic Assistance (ICD-10-PCS; CPT 58550; 2022-11-09 07:00)
DX: N92.0 Excessive and frequent menstruation with regular cycle (principal); I12.9 Hypertensive chronic kidney disease with stage 1 through stage 4 chronic kidney disease, or unspecified chronic kidney disease; N18.30 Chronic kidney disease, stage 3 unspecified; E03.9 Hypothyroidism, unspecified; Z87.891 Personal history of nicotine dependence
CPT/HCPCS: 58550; 36415; 80053; 81001; 81025; 84703; 85025; 85027; 86850; 86900; 88305; 88307; 96374; 96376; G0378; J0330; J0690; J1100; J1170; J1200; J2175; J2250; J2371; J2405; J2704; J2710; J3010; J3490; J7030; J7040; J7121

== ENCOUNTER → 2022-12-13 16:08 | Outpatient (BNVA) | payer MEDICAID, SELFPAY | PROVIDERS: PCP Nurse Practitioner Family; Visit Provider Nurse Practitioner Family | DX: E03.9 Hypothyroidism, unspecified (principal); I10 Essential (primary) hypertension; M25.50 Pain in unspecified joint | CPT/HCPCS: 80053; 84443; 85651; 86140; 86160; 86162; 86200; 86235; 86255; 86376; 86431 ==

== ENCOUNTER → 2023-03-18 12:40 | Outpatient (BNVA) | payer MEDICAID, SELFPAY | PROVIDERS: PCP Nurse Practitioner Family; Visit Provider Nurse Practitioner Family | DX: R00.2 Palpitations (principal); I10 Essential (primary) hypertension; E03.1 Congenital hypothyroidism without goiter; E55.9 Vitamin D deficiency, unspecified; D22.9 Melanocytic nevi, unspecified | CPT/HCPCS: 80053; 80061; 82306; 82607; 83721; 83735; 84439; 84443; 85025 ==

== ENCOUNTER → 2023-05-30 09:38 | Outpatient (BNVA) | payer MEDICAID, SELFPAY | PROVIDERS: PCP Nurse Practitioner Family; Visit Provider Nurse Practitioner Family | DX: E03.1 Congenital hypothyroidism without goiter (principal); I10 Essential (primary) hypertension; E78.5 Hyperlipidemia, unspecified; E55.9 Vitamin D deficiency, unspecified; R00.2 Palpitations; G47.10 Hypersomnia, unspecified | CPT/HCPCS: 80053; 80061; 82306; 82607; 83735; 84439; 84443; 85025 ==

== ENCOUNTER 2023-07-19 12:30 | Outpatient (CLI) | payer MEDICAID, SELFPAY | END 2023-07-19 12:31 | disposition home or self-care (01) | LOC: SLEEP 07-20 13:50 | PROVIDERS: PCP Nurse Practitioner Family; Visit Provider Nurse Practitioner Family | DX: G47.10 Hypersomnia, unspecified (principal); G47.33 Obstructive sleep apnea (adult) (pediatric) | CPT/HCPCS: G0399 ==

== ENCOUNTER → 2024-02-21 12:16 | Outpatient (BNVA) | payer MEDICAID, SELFPAY | PROVIDERS: PCP Nurse Practitioner Family; Visit Provider Nurse Practitioner Family | DX: E03.9 Hypothyroidism, unspecified (principal); E03.1 Congenital hypothyroidism without goiter | CPT/HCPCS: 84443 ==

== ENCOUNTER → 2024-10-05 11:03 | Outpatient (BNVA) | payer MEDICAID, SELFPAY | PROVIDERS: PCP Nurse Practitioner Family; Visit Provider Nurse Practitioner Family | DX: E03.1 Congenital hypothyroidism without goiter (principal); E55.9 Vitamin D deficiency, unspecified; I10 Essential (primary) hypertension | CPT/HCPCS: 80053; 80061; 82306; 82607; 83735; 84439; 84443; 85025 ==

== ENCOUNTER 2024-12-17 23:54 | Emergency (ER) | payer MEDICAID, SELFPAY ==
[2024-12-18] VITALS: BP 139/99; PULSE 87; RESP 14; TEMP 36.7; O2SAT 95; BMI 34.3
--- OUTSIDE RECORDS SUMMARY | 2024-12-18 00:01 | XMS_ITS | Clinical Summary ---
Author Organization [facility] Facility Address [address] [address] Care Team Providers Care Key Maker Name Role Phone Rosalva Mckeon [employer] Primary Care Provider [phone] Allergies Active Allergy Reactions Criticality Noted Date Comments Propoxyphene Other (see comments) 06/16/2020 Medications Synthroid 100 MCG tablet Take 100 mcg by mouth 1 (one) time each day 02/05/2020 Active Active Problems Problem Noted Date Diagnosed Date Chronic kidney disease stage 2 02/26/2020 Chronic urinary tract infection 02/26/2020 Essential hypertension 02/26/2020 Renal osteodystrophy 02/26/2020 Retention of urine 02/26/2020 Family History Medical History Relation Comments Dementia Mother Heart disease Mother Stroke Mother Heart disease Sibling Relation Status Comments Father Mother Alive Sibling Social History Tobacco Use Types Packs/Day Years Used Date Smoking Tobacco: Never Smokeless Tobacco: Never Alcohol Use Standard Drinks/Week Comments Yes 0 (1 standard drink = 0.6 oz pur e alcohol) occasionally Comments Unknown Sex and Gender Information Value Date Recorded Sex Assigned at Not on file Legal Sex Female 12:43 PM EST Gender Identity Not on file Sexual Orientation Not on file Last Filed Vital Signs Vital Sign Reading Time Taken Comments Blood Pressure 112/80 06/26/2020 9:59 AM CDT Pulse 68 06/26/2020 9:59 AM CDT Temperature 36.6 C (97.8 F) 06/26/2020 9:59 AM CDT Respiratory Rate - - Oxygen Saturation - - Inhaled Oxygen Concentration - - Weight 101 kg (222 lb) 06/26/2020 9:59 AM CDT Height 160 cm (5' 3 ) 06/26/2020 9:59 AM CDT Body Mass Index 39.33 06/26/2020 9:59 AM CDT Plan of Treatment Health Maintenance Due Date Last Done Comments Hepatitis B Vaccine (1 of 3 - 19+ 3-dose series) 06/23 Pneumococcal Vaccine: Peds ( 0 to 5 Years) and At-Risk Patients (6 to 49 Years) (1 of 2 - PCV) 2009 Influenza Vaccine (#1) 2024 Insurance Medicaid [place] ([id number]) [facility] Medicaid Care Teams Key Maker Relationship Specialty Start Date End Date Rosalva Mckeon NP [address] [place] [address] PCP - General Nurse Practitioner 02/11/20
--- OUTSIDE RECORDS SUMMARY | 2024-12-18 00:01 | XMS_ITS | Clinical Summary ---
Author Organization [facility] Address [address] [place]: Epic Prelude ADT SURYA HUTCHINSON [address] Care Team Providers Care Service Supervisor Name Role Phone [facility], External Provider Primary Care Provider [phone] Allergies No known active allergies Medications HYDROcodone-zafar taminophen (NORCO) 5-325 mg tablet Take 1-2 Tablet by mouth every 4 hours as needed for Pain, Mild or Pain, Moderate (For Pain Scale 1-3). Max Daily Amount: 12 Tablet 30 Tablet 0 6 Active multivitamins with iron Tablet Take 1 Tablet by mouth daily. 6 Active albuterol sulfate HFA 90 mcg/actuation aerosol inhaler Take 2 Puffs by inhalation every 6 hours as needed for Shortness of Breath. 6 Active levothyroxine 300 mcg tablet Take 300 mcg by mouth daily protective clothing issuer. 6 Active Immunizations Immunization Administration Dates Next Due (M-M-R II/PRIORIX)(12 MO UP) MEASLES, MUMPS AND RUBELLA VIRUS VACCINE, 0.5 ML IM/SUBCUT 06/05/1996,12/21/1995 (VARIVAX)(12 MOS UP)VARICELL A VIRUS VACCINE (PF) 0.5 ML, SUB CUT 05/22/2001 Dt Dtp Dtap Vaccine 02/21/2007, 7,06/05/1996,1995,03/27/1991 HIB, Unspecified Formulation 03/27/1991 Hepatitis B Vaccine 10/05/1996,12/21/1995,1995 IPV/OPV 06/05/1996,12/21/1995,03/27/1991 Social History Tobacco Use Types Packs/Day Years Used Date Smoking Tobacco: Never Alcohol Use Standard Drinks/Week Comments No 0 (1 standard drink = 0.6 oz pur e alcohol) Comments Unknown Sex and Gender Information Value Date Recorded Sex Assigned at Not on file 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 Gender Identity Not on file Sexual Orientation Not on file Last Filed Vital Signs Vital Sign Reading Time Taken Comments Blood Pressure 107/69 07/01/2015 10:00 AM CDT Pulse 88 07/01/2015 10:00 AM CDT Temperature 36.4 C (97.6 F) 07/01/2015 8:59 AM CDT Respiratory Rate 16 07/01/2015 10:00 AM CDT Oxygen Saturation - - Inhaled Oxygen Concentration - - Weight 82.1 kg (181 lb) 07/01/2015 6:24 AM CDT Height 160 cm (5' 3 ) 07/01/2015 6:24 AM CDT Body Mass Index 32.06 07/01/2015 6:24 AM CDT Plan of Treatment Health Maintenance Due Date Last Done Comments HPV/Cotest (21-29) 06/24/2011 DTAP/TDAP/TD VACCINES (6 - Tdap) 02/21/2017 02/21/2007, 12/14/1996, 06/05/1996, Additional history exists HPV VACCINES (1 - 3-dose SCD M series) 2017 CERVICAL CANCER SCREENING 2020 HPV/Cotest (30-65) 2020 PAP SMEAR 2020 INFLUENZA VACCINE (#1) 2024 HEPATITIS B VACCINES Completed 10/05/1996, 12/21/1995, 06/06/1995 Insurance [facility] [id number] Care Teams Service Supervisor Relationship Specialty Start Date End Date [facility], External Provider [address] [place] [address] PCP - General Family Practice 06/25/15
--- OUTSIDE RECORDS SUMMARY | 2024-12-18 00:01 | XMS_ITS | Patient Health Record ---
Author Organization [facility] Address [address] [facility] [place] [address] Care Team Providers Care Gas Operator Name Role Phone Vaughn Dominguez Primary Care Provider Allergies Allergen (clinical drug ingredient) Drug/Non Drug Allergy documented on EMR Reaction Allergy Type Onset Date Status ibuprofen Ibuprofen Unknown Drug Allergy Active Reason For Referral No Information Medications Medication SIG (Take, Route, Frequency, Duration) Notes Start Date End Date Status Peridex 0.12 % Solution Gently rinse 1/2 cap full for one minute and spit. DO NOT SWALLOW Mouth/Throat; Duration: 7 days 01/05/2022 Active Synthroid Unknown oxyCODONE HCl 10 MG Tablet 1 tablet as n eeded Orally every 8 hrs; Duration: 2 days 01/05/2022 Active Social History Sex Assigned At : Social History Observation Description Sex Assigned At Female Plan Of Treatment No Information Insurance Providers Payer Name Payer Address Payer Phone Subscriber Number Group Number Insured Name Patient Relationship to Insured Coverage Start Date Coverage End Date [facility] [address] [place] [address] [id number] Katia Dasilva Self - patient is the insured Medical (General) History Medical History History ICD Code kidney failure
[2024-12-18 00:48] LABS: Hematocrit 38.9 % (36-47); Hemoglobin 12.40 g/dL (11.27-16.99); Mean Corpuscular HGB Conc 31.9 g/dL (30-55); Mean Corpuscular Hemoglobin 29.6 pg (27-33); Mean Corpuscular Volume 92.8 fl (85-98); Nucleated Red Blood Cells % 0 %; Platelet Count 272 10^3/cmm (157-399); Red Blood Count 4.19 10^6/uL (3.85-5.65); White Blood Count 10.02 10^3/uL (3.29-11.43)
[2024-12-18 00:50] LABS: Glucose Urine UA Negative (Normal); Nitrate Urine Negative (Negative); Specific Gravity, Urine 1.019 (1.005-1.030)
[2024-12-18 00:51] LABS: HCG Qualitative Urine. Negative (Negative)
[2024-12-18 01:03] LABS: Alanine Aminotransferase 14 U/L (0-33); Albumin Level 4.7 g/dL (3.5-5.2); Alkaline Phosphatase 68 U/L (35-105); Anion Gap 16.0 (5-19); Aspartate Amino Transferase 13 U/L (0-32); Blood Urea Nitrogen 12 mg/dL (6-20); Calcium 10.0 mg/dL (8.5-10.5); Carbon Dioxide 26 mmol/L (22-29); Chloride 102 mmol/L (98-107); Creatinine Clr Calc Pharmacy 92.6567; Globulin 2.7 g/dL (1.3-4.6); Glucose 92 mg/dL (65-115); Osmolality Calculated 289 mOsm/kg (285-295); Potassium 4.0 mmol/L (3.5-5.1); Sodium 140 mmol/L (136-145); Total Protein 7.4 g/dL (6.6-8.7)
[2024-12-18 01:03] LABS: Add Urine Microscopic? YES; UA Slide Review UA Slide Review Perf
[2024-12-18 01:14] LABS: Slide Review Slide Review Perform
[2024-12-18] MEDS: ondansetron hcl ODT 4 mg Tab PO (02:32)
--- NOTE | 2024-12-18 02:42 | ED_ITS ---
HPI - Female Genitourinary 2 General: Chief complaint: Urogenital-Female Stated complaint: V\Kidney Pain Time Seen by Provider: 12/18/24 00:03 History of Present Illness: Patient is a 34-year-old female presenting with a chief complaint of left flank pain for couple of days. Patient has a history significant for multiple renal stones though she states she has not had one in over 1 year. Patient has not had a fever. She denies chest pain, shortness of breath, cough, hemoptysis or painful respirations. Patient has felt nauseated and vomited due to pain. Patient is not experiencing abdominal pain. Patient denies dysuria, hematuria or increased urinary frequency. No pelvic pain, denies possibility of given that she has had a hysterectomy. No change in bowel habits or blood in stool. Related Data Previous Rx's ?Medication ?Instructions ?Recorded ketoconazole 2 % topical cream 1 applic topical BID #3 0 grams 07/24/24 diclofenac sodium 1 % topical gel 2 g topical QID #50 grams 10/05/24 (Voltaren Arthritis Pain) Synthroid 150 mcg tablet See Rx Instructions .Route 0 10/31/24 (levothyroxine) .COMPLEX #30 tabs vits no.126-ferrous fum 1 tab PO DAILY #90 ta bs 11/18/24 28 mg iron-folic acid 800 mcg tablet (Classic ) hydrocodone 5 mg-acetaminophen 325 1 tab PO Q8H PRN pa in #9 tabs 12/18/24 mg tablet ondansetron HCl 4 mg tablet 4 mg PO Q8H PRN nausea 5 d ays #15 12/18/24 tabs Allergies Allergy/AdvReac Type Severity Reaction Status Date / Time pantoprazole (From Protonix) Allergy Intermediate itching in Verified 12/18/24 00:05 [place] ibuprofen Allergy Unknown Verified 12/18/24 00:05 morphine Allergy ADR-Headach Verified 12/18/24 00:05 e propoxyphene (From Allergy ALGY-Hives Verified 12/18/24 00:05 Darvocet-N 100) simvastatin Allergy ADR-Gastrointestinal Verified 12/18/24 00:05 Upset PFSH ED 2 PFSH: Medical History (Updated 12/18/24 @ 03:06 by Louann Saravia MD) H/O hemorrhoids anal fissure repair and hemorrhoidectomy repair Urolithiasis Bleeding hemorrhoid Polycystic ovarian syndrome Congenital hypothyroidism Vitamin D deficiency Anemia, unspecified Essential (primary) hypertension Chronic kidney disease, stage 3 (moderate) Panic disorder without agoraphobia Generalized anxiety disorder Major depressive disorder, recurrent episode, moderate with anxious distress Surgical History 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 Performed for menorrhagia by Dr. Burleson. History of wisdom tooth extraction History of urethral stent Hx of hernia repair x 3 Hx of section (~2012) Hx of tubal ligation (~2012) Family History Father , 2003 JEFFREY (obstructive sleep apnea) Alcohol abuse drug abuse Mother Lung disease COPD Alcohol abuse JEFFREY (obstructive sleep apnea) Heart disease Stomach cancer metastasis Family/Other Stroke Thyroid disease maternal aunt Breast cancer maternal aunt, early 30's Grandfather Clotting disorder maternal Stroke maternal Brother Hyperlipidemia Denies family history of Colon cancer Ovarian cancer Diabetes Anesthesia complication Bleeding disorder Hypertension Uterine cancer Social History Smoking and tobacco/nicotine status: former use of tobacco/nicotine Quit status (tobacco/nicotine): has quit using Year quit tobacco: september 2023 Second hand smoke exposure: No Alcohol intake: never Substance/Drug Use: current Marital status: Current occupational status: unemployed and student Physical Exam 2 Narrative: EXAM NARRATIVE: Vital signs were reviewed. Patient is alert, oriented and hemodynamically stable. Patient is afebrile. She has clear lung sounds bilaterally, normal heart sounds. She has a soft, nondistended nontender abdomen. Patient does have left CVA tenderness with percussion of her flank. No lower extremity edema or extremity asymmetry. No rash noted. Course 2 Vital Signs: Vital signs: Vital Signs Temperature 98.1 F 12/18/24 00:00 Pulse Rate 87 12/18/24 00:00 Respiratory Rate 14 12/18/24 00:00 Blood Pressure 139/99 12/18/24 00:00 Pulse Oximetry 95 12/18/24 00:00 Oxygen Delivery Me thod Room Air 12/18/24 00:00 MDM - Female Medical Decision Making 34-year-old female presenting with a chief complaint of left flank pain for couple of days. She has a history of kidney stones. Patient has not had fever, chills, malaise, dysuria or increased frequency prior to onset of symptoms. She denies respiratory symptoms such as chest pain, shortness of breath, cough, hemoptysis or syncope. Differential diagnosis includes but is not limited to, urinary tract infection, pyelonephritis, nephrolithiasis, pneumonia, viral upper respiratory infection, musculoskeletal pain, other. On initial exam, she is he medically stable and nontoxic-appearing. She was screened with CBC, CMP, UA and screen. She was treated with p.o. Tylenol and p.o. Zofran. She has a normal white blood cell count and is not anemic. She does not have any actionable electrolyte abnormalities and kidney functions within normal limits. She has normal liver function and is not . UA does not demonstrate evidence of infection such as positive nitrate, white blood cell count or bacteria. She does have 0-4 red blood cells and given her history of kidney stones, she may be experiencing another. We deferred CT imaging today given her history of the same to spare her radiation exposure. Will treat presumably for kidney stone. Given normal Cr, will give short course of NSAIDs. Patient was advised on supportive care at home, given return precautions and advised to follow-up with her urologist within 1 week. Lab Data 12/18/24 00:40 12/18/24 00:40 Laboratory Results WBC 10.02 10^3/uL (3.29-11.43) 12/18/24 00:40 RBC 4.19 10^6/uL (3.85-5.65) 12/18/24 00:40 Hgb 12.40 g/dL (11.27-16.99) 12/18/24 00:40 Hct 38.9 % (36-47) 12/18/24:40 MCV 92.8 fl (85-98) 12/18/24:40 MCH 29.6 pg (27-33) 12/18/24 00:40 MCHC 31.9 g/dL (30-55) 12/18/24 00:40 RDW 14.4 % (12.1-15.1) 12/18/24 00:40 Plt Count 272 10^3/cmm (157-399) 12/18/24 00:40 MPV 11.8 fL (7.4-10.4) H 12/18/24 00:40 Neut % (Auto) 50.6 % 12/18/24 00:40 Lymph % (Auto) 40.3 % 12/18/24 00:40 Creek % (Auto) 6.6 % 12/18/24 00:40 Eos % (Auto) 1.6 % 12/18/24 00:40 Baso % (Auto) 0.7 % 12/18/24 00:40 Neut # (Auto) 5.07 10^3/uL (1.8-7.7) 12/18/24 00:40 Lymph # (Auto) 4.0 10^3/uL (0.8-4.8) 12/18/24 00:40 Creek # (Auto) 0.7 10^3/uL (0.2-0.9) 12/18/24 00:40 Eos # (Auto) 0.2 10^3/uL (0.0-0.8) 12/18/24 00:40 Baso # (Auto) 0.1 10^3/uL (0.0-0.1) 12/18/24 00:40 Nucleated RBC % (auto) 0 % 12/18/24 00:40 Nucleated RBCs # 0.0 /100WBC 12/18/24 00:40 Sodium 140 mmol/L (136-145) 12/18/24 00:40 Potassium 4.0 mmol/L (3.5-5.1) 12/18/24 00:40 Chloride 102 mmol/L (98-107) 12/18/24 00:40 Carbon Dioxide 26 mmol/L (22-29) 12/18/24 00:40 Anion Gap 16.0 (5-19) 12/18/24 00:40 BUN 12 mg/dL (6-20) 12/18/24 00:40 Creatinine 0.9 mg/dL (0.5-0.9) 12/18/24 00:40 GFR Calculation 71.7 mL/min (90-130) L 12/18/24 00:40 Glucose 92 mg/dL (65-115) 12/18/24 00:40 Calculated Osmolality 289 mOsm/kg (285-295) 12/18/24 00:40 Calcium 10.0 mg/dL (8.5-10.5) 12/18/24 00:40 Total Bilirubin 0.3 mg/dL (0.15-1.2) 12/18/24 00:40 AST 13 U/L (0-32) 12/18/24 00:40 ALT 14 U/L (0-33) 12/18/24 00:40 Alkaline Phosphatase 68 U/L (35-105) 12/18/24 00:40 Total Protein 7.4 g/dL (6.6-8.7) 12/18/24 00:40 Albumin 4.7 g/dL (3.5-5.2) 12/18/24 00:40 Globulin 2.7 g/dL (1.3-4.6) 12/18/24 00:40 HCG, Qual Negative (Negative) 12/18/24 00:36 Urine Color Yellow (Yellow) 12/18/24 00:36 Urine Appearance Cloudy (CLEAR) A 12/18/24 00:36 Urine pH 7.0 (5-7) 12/18/24 00:36 Ur Specific [place] 1.019 (1.005-1.030) 12/18/24 00:36 Urine Protein Negative (Negative) 12/18/24 00:36 Urine Glucose (UA) Negative (Normal) 12/18/24 00:36 Urine Ketones Negative (Negative) 12/18/24 00:36 Urine Blood Negative (Negative) 12/18/24 00:36 Urine Nitrate Negative (Negative) 12/18/24 00:36 Urine Bilirubin Negative (Negative) 12/18/24 00:36 Urine Urobilinogen 1.0 mg/dL (Negative) 12/18/24 00:36 Ur Leukocyte Esterase Negative (Negative) 12/18/24 00:36 Urine RBC 0-4 /hpf (0-2) H 12/18/24 00:36 Urine WBC None /hpf (0-5) 12/18/24 00:36 Ur Squamous Epith Cells 0-4 /hpf (0-5) H 12/18/24 00:36 Amorphous Sediment 2+ /hpf 12/18/24 00:36 Urine Bacteria None /hpf (NONE) 12/18/24 00:36 Urine Mucus 1+ /hpf 12/18/24 00:36 No radiology studies performed this visit Discharge Plan Discharge Patient Disposition: Home Clinical Impression: Acute left flank pain Condition: Stable Prescriptions: New ondansetron HCl 4 mg tablet 4 mg PO Q8H PRN (Reason: nausea) 5 Days Qty: 15 0RF hydrocodone-acetaminophen 5-325 mg tablet 1 tab PO Q8H PRN (Reason: pain) Qty: 9 0RF No Action ketoconazole 2 % cream 1 applic topical BID Qty: 30 2RF diclofenac sodium [Voltaren Arthritis Pain] 1 % gel 2 g topical QID Qty: 50 0RF levothyroxine [Synthroid] 150 mcg tablet See Rx Instructions .ROUTE .COMPLEX Qty: 30 0RF Dose Instruction: Take 1 tablet by mouth once daily Rx Instructions: Take 1 tablet by mouth once daily Classic 28 mg iron- 800 mcg tablet 1 tab PO DAILY Qty: 90 1RF Discharge Orders: Discharge ED (Routine); Ordered 12/18/24 Ordered By: Louann Saravia Referrals: Rosalva Mckeon FNP [Primary Care Provider, Family Practice] Patient Instructions: Opioid Safety, Pain Management, Patient Portal & [facility] Instructions, Flank Pain (ED) Activity Restrictions/Additional Instructions: Take hydrocodone/acetaminophen for pain every 8 hours as needed for pain. You may take an extra strength tablet of tylenol in addition (500mg) if needed every six hours. While you should not take NSAIDs such as ibuprofen or aleve regularly, you may take a dose for severe pain in the next few days. For nausea and vomiting, take a Zofran. Continue to monitor your condition closely at home. If your condition worsens or additional concerns arise, please return to the emergency department for reassessment. Please call your urologist tomorrow and schedule an appointment within 1 week for follow-up. Today, you are treated for presumed kidney stone. Print Language: Citizen Of [place] Coding Level of Care Code ED Flexographic Press Operator for Ana Whitt
== END 2024-12-18 03:41 | disposition home or self-care (01) ==
PROVIDERS: Emergency Provider Emergency Medicine; PCP Nurse Practitioner Family
DX: R10.9 Unspecified abdominal pain (principal); Z87.891 Personal history of nicotine dependence; I12.9 Hypertensive chronic kidney disease with stage 1 through stage 4 chronic kidney disease, or unspecified chronic kidney disease; N18.30 Chronic kidney disease, stage 3 unspecified
CPT/HCPCS: 36415; 80053; 81001; 81025; 85025; 99283; J9999; Q0162

== ENCOUNTER → 2025-02-19 14:07 | Outpatient (BNVA) | payer MEDICAID, SELFPAY | PROVIDERS: PCP Nurse Practitioner Family; Visit Provider Nurse Practitioner Family | DX: G47.10 Hypersomnia, unspecified (principal); E78.5 Hyperlipidemia, unspecified; E03.1 Congenital hypothyroidism without goiter; I10 Essential (primary) hypertension; E55.9 Vitamin D deficiency, unspecified; E78.00 Pure hypercholesterolemia, unspecified; Z90.3 Acquired absence of stomach [part of] | CPT/HCPCS: 80053; 80061; 82306; 82607; 83036; 84439; 84443; 85025 ==